=== PATIENT | male | born 1955 | race Caucasian/White ===

== ENCOUNTER 2016-09-30 04:15 | Inpatient (IN) | payer BC ==
[~2016-09-30] VITALS: Ht 172.7 cm; Wt 78.7 kg
[~2016-09-30 04:15] MED LIST: ACET-1311 PO; TADA10TA PO; [UNRECOGNIZED DRUG - REMARK]
[2016-09-30] MEDS ORDERED: SODIUM CHLORIDE 0.9% 1000ML 1,000 ML IV STA ×2 (04:48→08:05)
[2016-09-30] MEDS ORDERED: ONDANSETRON INJ 2 MG/ML 2 ML VIAL IV STA (04:48)
[2016-09-30] MEDS ORDERED: MoRPHine SULFATE 4 MG/ML 1 ML CARP\\VIAL IV STA ×2 (04:48→07:02)
[2016-09-30 05:30] LABS: BASO % 0.1 %; BASO ABS # 0.02 K/uL (0-0.2); COMPLETE YES; EOS % 1.2 %; HEMATOCRIT 51.3 % (42-52); IG% 0.6 %; LYMPH % 3.3 %; LYMPH ABS # 0.54 K/uL (1.2-3.4); MEAN CELL VOLUME 85.9 fL (80-100); MEAN CORPUSCULAR HGB CONC 36.1 g/dl (32-36); MEAN PLATELET VOLUME 9.7 fL (7.4-10.4); MONO % 5.5 %; NEUT % 89.3 %; PLATELET COUNT 252 K/uL (130-400); RED BLOOD COUNT 5.97 M/uL (4.7-6.1); WHITE BLOOD COUNT 16.29 K/uL (4.8-10.8)
[2016-09-30 05:39] LABS: BUN/CREATININE RATIO 19.3 (10-20); CALCIUM 8.6 mg/dl (8.5-10.1); INR 1.1 (0.9-1.1); MAGNESIUM 2.2 mg/dl (1.8-2.4); PARTIAL THROMBOPLASTIN RATIO 0.9; POTASSIUM 3.8 mmol/L (3.5-5.1); PROTHROMBIN TIME (PATIENT) 11.4 SECONDS (9.0-12.0)
[2016-09-30 05:42] LABS: ALB/GLOB RATIO 1.2 (0.9-2); C-REACTIVE PROTEIN 0.52 mg/dl (0-0.29); CKMB/CK RATIO 1.7 (0-3.0)
[2016-09-30] MEDS ORDERED: SODIUM CHLORIDE 0.9% 500ML 500 ML IV STA (06:33)
--- NOTE | 2016-09-30 06:36 | EMERGENCY ROOM VISIT NOTE ---
History First contact with patient: 04:37 Chief Complaint: ABDOMINAL PAIN Stated Complaint: STOMACH PAIN, THROWING UP Nursing Triage Summary: pt states he had onset of epigastric pain after dinner tonight ~9pm. states he ate steak for dinner. hx hiatal hernia. denies cardiac hx. pt alert and oriented x4, breathing WNL. pt states he feels nauseaous and has diarrhea. denies urinary symptoms. History of Present Illness The patient is a 61 year old male who presents to the Emergency Department by private vehicle for evaluation of his upper abdominal pain and diarrhea. The patient reports that he ate dinner at the [facility] and shortly after he developed diarrhea. He reports that he has had upper abdominal pain with associated burning sensation. He feels nauseated and as though he could vomit, but has been unable to do so at this point. He denies any blood in his stool. He reports that his stool was essentially liquid at this point. He rates his current discomfort as a 10/10. Patient denies any headaches, dizziness, lightheadedness, chest pain, palpitations, for pain, shortness of breath, hematemesis, hematochezia, melena, hematuria, or dysuria. He denies any history of coronary artery disease. He reports no family history of coronary artery disease. He does have a hiatal hernia as well as GERD. He has tried no [id number] medications for symptoms at this point. Review of Systems A complete 10-point Review of Systems was discussed with the patient, with pertinent positives and negatives listed in the History of Present Illness. All remaining Review of Systems questions can be considered negative unless otherwise specified. Past Medical/Surgical History Medical Problems: (1) GERD (gastroesophageal reflux disease) Family History No significant family history Social History Smoking Status: Never Smoker Smokeless Tobacco Use: No Alcohol Use: none Drug Use: none Marital Status: Housing Status: lives with family Occupation Status: employed Current/Historical Medications Scheduled Amoxicillin & Pot Clavulanate (Augmentin 875-125 mg), 1 TAB PO BID Fluticasone Propionate (Nasal) (Flonase Allergy Relief), 2 SPRAYS LATRELL DAILY Pantoprazole (Protonix), 40 MG PO QAM Ranitidine (Zantac), 300 MG PO HS Tadalafil (Cialis), 10 MG PO UD Allergies Coded Allergies: No Known Allergies (Unverified , 07/25/16) Physical Exam Vital Signs Date Time Temp Pulse Resp B/P Pulse Ox O2 Delivery O2 Flow Rate FiO2 09/30/16 08:20 97 Room Air 09/30/16 07:22 81 19 112/71 97 Room Air 09/30/16 06:12 90 18 105/74 95 Room Air 09/30/16 05:35 92 22 120/84 96 Room Air 09/30/16 05:35 95 Room Air 09/30/16 05:05 90 09/30/16 04:21 36.4 108 20 117/77 95 Room Air Pain Rating (0-10): 10 Physical Exam VITAL SIGNS - Vital signs and nursing notes were reviewed. GENERAL - 61-year-old male appearing his stated age who is in no acute distress. Communicates well with provider and answers questions appropriately. LUNGS - Chest wall symmetric without accessory muscle use, intercostals retractions, or central cyanosis. Normal vesicular breath sounds CTA B/L. No wheezes, rales, or rhonchi appreciated. CARDIAC - RRR with S1/S2. No murmur, rubs, or gallops appreciated. ABDOMEN - Abdominal contour flat and without pulsations or visible masses. BS normoactive all four quadrants. Moderate tenderness to palpation appreciated in the epigastrium and RUQ. No guarding. No Rebound Tenderness. Negative Rovsing' s. Negative Bernard's. No palpable masses, hepatosplenomegaly, or ascites noted. PSYCH - A&Ox3 and cooperates fully with examiner. Pt is very pleasant and interacts well with examiner. Medical Decision & Procedures ER Provider Diagnostic Interpretation: Chest x-ray was obtained and reviewed by myself. No acute cardiopulmonary processes appreciated per my interpretation. Radiologist's impression unavailable at the time of dictation. Radiological imaging and reports were reviewed by myself. Radiologist's Interpretation per [facility] as follows: US RUQ: The pancreas was not visualized secondary to bowel gas. Liver is normal size with slight increased echogenicity suggesting hepatic steatosis. The gallbladder is unremarkable. The common bile duct is within normal limites measuring up to 6 mm. The right kidney is unremarkable. No stones, masses or hydronephrosis. Radiological imaging and reports were reviewed by myself. Radiologist's Interpretation as follows: ABDOMEN AND PELVIS CT WITH IV CONTRAST CT DOSE: 371.10 mGy.cm HISTORY: epigastric abd pain - diarrhea TECHNIQUE: Multiaxial CT images of the abdomen and pelvis were performed following the use of intravenous contrast. COMPARISON STUDY: Abdominal ultrasound 09/30/2016. FINDINGS: The lung bases are clear. No pneumoperitoneum. No pneumatosis. Fluid-filled distal esophagus. The stomach is mildly distended and completely filled with fluid. Multiple fluid-filled loops of small bowel. Borderline distended loops of small bowel to the deep pelvis measuring up to 3 cm. Question of a transition point within the mid to distal small bowel at the left deep pelvis on image 341. Distal to this area the small bowel is relatively decompressed. Colonic diverticulosis. The appendix appears surgically absent. There is a fluid-filled nondistended colon. There is question of mild thickening versus under distention of the transverse colon and descending colon. The liver, gallbladder, pancreas, spleen, adrenal glands, and kidneys are unremarkable. No retroperitoneal lymphadenopathy. No pelvic free fluid. The bladder is unremarkable. IMPRESSION: 1. Fluid-filled loops of small and large bowel as well as a slightly distended and fluid-filled stomach and distal esophagus. There is question of mild thickening of the transverse colon and descending colon. However, this could be due to underdistention. These findings favor a gastroenteritis with the possibility of a associated mild colitis. 2. There are borderline dilated fluid-filled loops of small bowel with a possible transition point in the left deep pelvis as described above. This may be transient or be related to a low-grade partial small bowel obstruction. Laboratory Results 09/30/16 05:11 Red Blood Count 5.97, Mean Corpuscular Volume 85.9, Mean Corpuscular Hemoglobin 31.0, Mean Corpuscular Hemoglobin Concent 36.1, Mean Platelet Volume 9.7, Neutrophils (%) (Auto) 89.3, Lymphocytes (%) (Auto) 3.3, Monocytes (%) (Auto) 5.5, Eosinophils (%) (Auto) 1.2, Basophils (%) (Auto) 0.1, Neutrophils # (Auto) 14.55, Lymphocytes # (Auto) 0.54, Monocytes # (Auto) 0.90, Eosinophils # (Auto) 0.19, Basophils # (Auto) 0.02 09/30/16 05:11 Test 09/30/16 05:11 White Blood Count 16.29 K/uL (4.8-10.8) Red Blood Count 5.97 M/uL (4.7-6.1) Hemoglobin 18.5 g/dL (14.0-18.0) Hematocrit 51.3 % (42-52) Mean Corpuscular Volume 85.9 fL (80-100) Mean Corpuscular Hemoglobin 31.0 pg (25-34) Mean Corpuscular Hemoglobin Concent 36.1 g/dl (32-36) Platelet Count 252 K/uL (130-400) Mean Platelet Volume 9.7 fL (7.4-10.4) Neutrophils (%) (Auto) 89.3 % Lymphocytes (%) (Auto) 3.3 % Monocytes (%) (Auto) 5.5 % Eosinophils (%) (Auto) 1.2 % Basophils (%) (Auto) 0.1 % Neutrophils # (Auto) 14.55 K/uL (1.4-6.5) Lymphocytes # (Auto) 0.54 K/uL (1.2-3.4) Monocytes # (Auto) 0.90 K/uL (0.11-0.59) Eosinophils # (Auto) 0.19 K/uL (0-0.5) Basophils # (Auto) 0.02 K/uL (0-0.2) RDW Standard Deviation 40.8 fL (36.4-46.3) RDW Coefficient of Variation 12.9 % (11.5-14.5) Immature Granulocyte % (Auto) 0.6 % Immature Granulocyte # (Auto) 0.09 K/uL (0.00-0.02) Erythrocyte Sedimentation Rate 3 mm/hr (0-14) Prothrombin Time 11.4 SECONDS (9.0-12.0) Prothromb Time International Ratio 1.1 (0.9-1.1) Activated Partial Thromboplast Time 24.2 SECONDS (21.0-31.0) Partial Thromboplastin Ratio 0.9 Anion Gap 8.0 mmol/L (3-11) Est Creatinine Clear Calc Drug Dose 73.1 ml/min Estimated GFR () 92.4 Estimated GFR (Non- 79.7 BUN/Creatinine Ratio 19.3 (10-20) Calcium Level 8.6 mg/dl (8.5-10.1) Magnesium Level 2.2 mg/dl (1.8-2.4) Total Bilirubin 1.0 mg/dl (0.2-1) Aspartate Amino Transf (AST/SGOT) 14 U/L (15-37) Alanine Aminotransferase (ALT/SGPT) 27 U/L (12-78) Alkaline Phosphatase 67 U/L (45-117) Total Creatine Kinase 36 U/L (39-308) Creatine Kinase MB 0.6 ng/ml (0.5-3.6) Creatine Kinase MB Ratio 1.7 (0-3.0) Troponin I < 0.015 ng/ml (0-0.045) C-Reactive Protein 0.52 mg/dl (0-0.29) Total Protein 7.3 gm/dl (6.4-8.2) Albumin 4.0 gm/dl (3.4-5.0) Globulin 3.3 gm/dl (2.5-4.0) Albumin/Globulin Ratio 1.2 (0.9-2) Lipase 138 U/L (73-393) Medications Administered Medications (Trade) Dose Ordered Sig/Anita Route Start Time Stop Time Status Last Admin Dose Admin Sodium Chloride (Nss 1000ml) 1,000 ml @ 100 mls/hr Q10H STAT IV 09/30/16 04:48 09/30/16 14:47 09/30/16 05:33 100 MLS/HR Ondansetron HCl (Zofran Inj) 4 mg NOW STAT IV 09/30/16 04:48 09/30/16 04:52 DC 09/30/16 05:33 4 MG Morphine Sulfate 4 mg 4 mg NOW STAT IV 09/30/16 04:48 09/30/16 04:52 DC 09/30/16 05:34 4 MG Sodium Chloride (Nss 500ml) 500 ml @ 999 mls/hr Q31M STAT IV 09/30/16 06:33 09/30/16 07:03 DC 09/30/16 06:33 999 MLS/HR Morphine Sulfate 4 mg 4 mg NOW STAT IV 09/30/16 07:02 09/30/16 07:03 DC 09/30/16 07:23 4 MG Sodium Chloride (Nss 1000ml) 1,000 ml @ 100 mls/hr Q10H STAT IV 09/30/16 08:05 09/30/16 18:04 09/30/16 08:00 100 MLS/HR Procedure Patient was placed on the lunchroom monitor and monitored throughout the entire extent of their stay. In addition, the patient's pulse oximetry was monitored throughout the entire stay. Any abnormalities or aberrancies were addressed appropriately. ECG Indication: abdominal pain Rate (beats per minute): 84 Rhythm: normal sinus Findings: left axis deviation Change: no significant change (from 07/25/2016.) ED Course Patient was seen and evaluated by myself. Labs were drawn, saline lock in place. EKG and chest x-rays were obtained. Patient was hydrated with a 1000 mL normal saline bolus at rate of 100 mL per hour. He received 4 mg Zofran and 4 mg morphine intravenously. Laboratory results demonstrate a moderate leukocytosis of 16,000. There is no anemia. The patient has no significant electrolyte abnormalities. Cardiac enzymes and troponin are negative. On review the patient, he is resting comfortably. Ultrasound and x-ray results above. Patient was reevaluated and is having continued pain. He was treated with an additional [address] was obtained given the patient's white count and ongoing discomfort. CT results above. Laboratory results and imaging studies were reviewed with the patient who acknowledges understanding. The patient was admitted to the [facility] service for further evaluation and management. Patient was admitted in stable condition. Medical Decision Given the patient's presentation and exam findings, I did elect to perform the above-mentioned workup. The patient presents today with epigastric abdominal discomfort. He has no fever. He does have a moderate leukocytosis. Cardiac enzymes and evaluation are otherwise unremarkable. Ultrasound demonstrated no acute findings. Given the patient's ongoing pain in the setting of a 16,000 white count, I did elect to perform a CT scan for further evaluation. Imaging results demonstrate gastroenteritis with possible small bowel obstruction. Given the patient's ongoing symptoms of pain and this finding, I do feel the patient warrants further evaluation with IV fluid hydration and pain medication. The patient will be admitted to the [facility] service for continued management. The patient was admitted in stable condition. In the evaluation and treatment of this patient, the following differential diagnoses were considered: Appendicitis, Diverticulitis, Diverticulosis, Colitis , Ischemic Colitis, Inflammatory Bowel Disease, Irritable Bowel Disease, Testicular Torsion, Kidney Stone, Pyelonephritis, Hydronephrosis, Cholecystitis , Ascending Cholangitis, Choledocholithiasis, GERD. Impression Primary Impression: Small bowel obstruction Additional Impressions: Acute gastroenteritis, Diarrhea Departure Information Dispostion Admitted as an inpatient Condition FAIR Referrals Rohit Vora III, M.D. (PCP) Patient Instructions A Signature Page
[2016-09-30] MEDS ORDERED: OPTIRAY 320 IV PRN (06:45)
[2016-09-30] MEDS ORDERED: AMOX875T PO (06:53)
[2016-09-30] MEDS ORDERED: PANT40TA PO (06:54)
--- NOTE | 2016-09-30 07:31 | DIAGNOSTIC IMAGING REPORT ---
ABDOMEN AND PELVIS CT WITH IV CONTRAST CT DOSE: 371.10 mGy.cm HISTORY: epigastric abd pain - diarrhea TECHNIQUE: Multiaxial CT images of the abdomen and pelvis were performed following the use of intravenous contrast. COMPARISON STUDY: Abdominal ultrasound 09/30/2016. FINDINGS: The lung bases are clear. No pneumoperitoneum. No pneumatosis. Fluid-filled distal esophagus. The stomach is mildly distended and completely filled with fluid. Multiple fluid-filled loops of small bowel. Borderline distended loops of small bowel to the deep pelvis measuring up to 3 cm. Question of a transition point within the mid to distal small bowel at the left deep pelvis on image 341. Distal to this area the small bowel is relatively decompressed. Colonic diverticulosis. The appendix appears surgically absent. There is a fluid-filled nondistended colon. There is question of mild thickening versus under distention of the transverse colon and descending colon. The liver, gallbladder, pancreas, spleen, adrenal glands, and kidneys are unremarkable. No retroperitoneal lymphadenopathy. No pelvic free fluid. The bladder is unremarkable. IMPRESSION: 1. Fluid-filled loops of small and large bowel as well as a slightly distended and fluid-filled stomach and distal esophagus. There is question of mild thickening of the transverse colon and descending colon. However, this could be due to underdistention. These findings favor a gastroenteritis with the possibility of a associated mild colitis. 2. There are borderline dilated fluid-filled loops of small bowel with a possible transition point in the left deep pelvis as described above. This may be transient or be related to a low-grade partial small bowel obstruction. Electronically signed by: Juan Peck M.D. 09/30/2016 7:29 AM Dictated Date/Time: 09/30/2016 7:20 AM
[2016-09-30 08:20] VITALS: O2SAT 97; Ht 172.7 cm; Wt 78.7 kg
--- NOTE | 2016-09-30 08:27 | DIAGNOSTIC IMAGING REPORT ---
CHEST ONE VIEW PORTABLE HISTORY: Epigastric abdominal pain. COMPARISON: Chest 07/25/2016. FINDINGS: The lungs are clear. Cardiac silhouette is normal in size. No pleural effusions. No pneumothorax. Incidental note is made of a right azygos lobe. IMPRESSION: No acute process. Electronically signed by: Juan Peck M.D. 09/30/2016 8:26 AM Dictated Date/Time: 09/30/2016 8:25 AM
[2016-09-30] MEDS ORDERED: HYDROmorphone INJ 0.5 MG/0.5 ML SYR IV STA (09:03)
[2016-09-30] MEDS ORDERED: HYDROmorphone INJ 0.5 MG/0.5 ML SYR ONE (09:12)
[2016-09-30] MEDS ORDERED: ALUMINUM/MAGNESIUM/SIMETH (MAALOX MAX) 30 ML UDC PO PRN (09:15)
[2016-09-30] MEDS ORDERED: ONDANSETRON INJ 2 MG/ML 2 ML VIAL IV PRN (09:15)
[2016-09-30] MEDS ORDERED: HYDROmorphone INJ 0.5 MG/0.5 ML SYR IV PRN (09:15)
--- NOTE | 2016-09-30 09:29 | DIAGNOSTIC IMAGING REPORT ---
ABDOMINAL ULTRASOUND, RIGHT UPPER QUADRANT HISTORY: epigastric abd pain. COMPARISON: None. FINDINGS: Pancreas: Obscured by overlying bowel gas. Liver: Unremarkable. Gallbladder: No gallbladder wall thickening. No gallstones. CBD: 6 mm. Right kidney: No hydronephrosis. IMPRESSION: 1. Normal gallbladder. No gallstones. 2. The pancreas was obscured by overlying bowel gas. Electronically signed by: Juan Peck M.D. 09/30/2016 9:27 AM Dictated Date/Time: 09/30/2016 9:26 AM
[2016-09-30 10:30] VITALS: BP 128/77; PULSE 82; TEMP 36.6; O2SAT 96
--- NOTE | 2016-09-30 10:37 | HISTORY & PHYSICAL EXAMINATION ---
DATE OF ADMISSION: 09/30/2016 CHIEF COMPLAINT: Severe abdominal pain. HISTORY OF PRESENT ILLNESS: This is a 61-year-old male with a post medical history significant for GERD and erectile dysfunction, presents with severe abdominal pain. The patient says since he ate food at last night 9 p.m., he has severe abdominal pain in the epigastric region and several episodes of diarrhea and nausea. He thought it will be subsided, but it did not resolve in the morning, so he came to the ER. He is saying that he got a pain medication in the ER, but was still having significant pain in the epigastric region. Denies any fever or chills. No chest pain, no shortness of breath, no cough, no runny nose, no headaches, no dizziness, and no blurred vision. Otherwise, he was in good health. He was eating and drinking okay and was ambulating fine before this happened. ALLERGIES: No known drug allergies. PAST MEDICAL HISTORY: As mentioned above. PAST SURGICAL HISTORY: Appendectomy and colonoscopy. MEDICATIONS: The patient is on Protonix 40 mg p.o. daily, Zantac 300 mg p.o. daily, Flonase 2 sprays each nostril daily, Augmentin 1 tablet b.i.d., and Cialis as directed. FAMILY HISTORY: Significant for, mother has asthma and emphysema. Father has colon cancer and diabetes. Sister has diabetes. Brother has CABG. SOCIAL HISTORY: Never smoked. Alcohol rare. No drug use. . REVIEW OF SYMPTOMS: As per HPI. PHYSICAL EXAMINATION: GENERAL: The patient is of moderate build, seems to be in pain. VITAL SIGNS: Temperature 36.4, pulse 85, respiratory rate 19, blood pressure 112/71, and oxygen 97% room air. HEENT: No icterus. Pupils are equal, round, and reactive to light. NECK: No JVD, no neck masses, and no carotid bruits. CARDIOVASCULAR: S1 and S2 heard. Regular rate and rhythm. No murmur and no gallop. RESPIRATORY SYSTEM: Clear to auscultation bilaterally. No wheezing and no crackles. ABDOMEN: Soft. Bowel sounds sluggish. Epigastric tenderness present. Some guarding in the epigastric region. No distention seen. CENTRAL NERVOUS SYSTEM: Cranial nerves II-XII grossly intact. Nonfocal. EXTREMITIES: No edema and no erythema. LABORATORY DATA: WBC 16.2, hemoglobin 18.5, hematocrit 37.3, and platelets 252. Sodium 138, potassium 3.8, chloride 105, CO2 of 25, BUN 19, creatinine 1, serum glucose 127, calcium 8.6, and magnesium 2.2. Total bilirubin 1. AST 14, ALT 24, and alkaline phosphatase 67. Total creatine kinase 36. CK-MB 0.6. Troponin I less than 0.015. Lipase 138. PT 11.4, INR 1, and aPTT 24.4. Chest x-ray: No acute process seen. CT scan of the abdomen and pelvis with IV contrast shows fluid filled loops of small and large bowel as well as slightly distended and fluid filled stomach and distal esophagus. Question of mild thickening of transverse colon and descending colon; however, this could be due to under distention. These findings favor gastroenteritis with the possibility of associated mild colitis. There are borderline dilated fluid filled loops of small bowel with a possible transition point in the left deep pelvis as described above. This may be transient or may be related to a low grade partial small bowel obstruction. EKG: Shows normal sinus rhythm with rate of 92. No acute ST changes seen. ASSESSMENT AND PLAN: This is a 61-year-old male who presents with severe epigastric abdominal pain and found to have gastroenteritis and partial small bowel obstruction. 1. Gastroenteritis and mild colitis, most likely viral. The patient will also be checked for flu, though the patient do not have flu symptoms. We will place the patient on n.p.o., IV fluids, IV antiemetics, and IV pain medications p.r.n. We will take a stool sample and monitor on the medical floor. 2. Mild partial small bowel obstruction. We will keep him n.p.o., IV fluids, IV antiemetics, and IV pain medications and follow KUB in a.m. We will also consult surgery. 3. History of gastroesophageal reflux disease. We will place him on IV Protonix. 4. Deep vein thrombosis prophylaxis, SCDs and TEDs. DISPOSITION: Admit to medical floor. Expect to discharge home and follow with his family doctor. Level 1 full code. MTDD
[2016-09-30] MEDS: D5NSS + 20MEQ KCL 1,000 ML IV SCH ×2 (11:14→19:53)
[2016-09-30] MEDS: PANTOprazole INJ 40 MG in SYRINGE 0 ML IV SCH ×2 (11:14→21:23)
[2016-09-30 11:28] LABS: INFLUENZA A PCR Neg for Influ A (NEG); INFLUENZA B PCR Neg for Influ B (NEG)
[2016-09-30] MEDS: ENOXAPARIN 40 MG/0.4 ML SYR SQ SCH (13:15)
[2016-09-30 13:22] LABS: URINE APPEARANCE CLEAR (CLEAR); URINE BILIRUBIN NEG (NEG); URINE COLOR YELLOW; URINE NITRITE NEG (NEG); URINE SPECIFIC GRAVITY 1.044 (1.000-1.030); UROBILINOGEN NEG (NEG); ZZUR CULT IF INDIC CLEAN CATCH NO
[2016-09-30 13:26] LABS: MANUAL MICROSCOPIC REQUIRED? NO; REVIEW REQ? NO
--- NOTE | 2016-09-30 14:28 | Medical Consult ---
Consultation Date of Consultation: Sep 30, 2016. Attending Physician: Jesus Dunn MD History of Present Illness 61 y/o wm in usual state of health began with epigastric pain, nausea ( unable to vomit) and diarrhea. denies fever . Past Medical/Surgical History Medical Problems: (1) Acute gastroenteritis Status: Acute (2) Bronchitis Status: Acute (3) Diarrhea Status: Acute (4) Small bowel obstruction Status: Acute Family History No significant family history Social History Smoking Status: Never Smoker Smokeless Tobacco Use: No Drug Use: none Marital Status: Housing Status: lives with family Occupation Status: employed Allergies Coded Allergies: No Known Allergies (Unverified , 07/25/16) Current Inpatient Medications Current Inpatient Medications Medications (Trade) Dose Ordered Sig/Anita Route Start Time Stop Time Status Last Admin Dose Admin Ioversol (Optiray 320) 125 ml UD PRN IV 09/30/16 06:45 10/04/16 06:44 Enoxaparin Sodium (Lovenox Inj) 40 mg Q24H SQ 09/30/16 12:00 10/30/16 11:59 Acetaminophen (Tylenol Tab) 650 mg Q4H PRN PO 09/30/16 09:15 10/30/16 09:14 Al Hydrox/Mg Hydrox/Simethicone (Maalox Max Susp) 15 ml Q4H PRN PO 09/30/16 09:15 10/30/16 09:14 Ondansetron HCl (Zofran Inj) 4 mg Q6H PRN IV 09/30/16 09:15 10/30/16 09:14 Fluticasone Propionate 2 sprays 2 sprays DAILY LATRELL 10/01/16 09:00 10/31/16 08:59 Potassium Chloride/Dextrose/ Sod Cl (D5nss + 20meq KCl) 1,000 ml @ 125 mls/hr Q8H IV 09/30/16 11:00 10/30/16 09:14 09/30/16 11:14 125 MLS/HR Hydromorphone HCl 0.5 mg 0.5 mg Q3HWA PRN IV 09/30/16 09:15 10/14/16 09:14 Pantoprazole Sodium/Syringe (Protonix Inj/ Syringe) 10 ml @ 5 mls/min DAILY@ IV 09/30/16 11:00 10/30/16 10:59 09/30/16 11:14 5 MLS/MIN Review of Systems Abdomen: + diarrhea, + nausea, + pain Physical Exam Date Time Temp Pulse Resp B/P Pulse Ox O2 Delivery O2 Flow Rate FiO2 09/30/16 10:30 36.6 82 18 128/77 96 Room Air 09/30/16 10:30 Room Air 09/30/16 09:16 87 14 114/82 09/30/16 08:47 85 09/30/16 08:20 97 Room Air 09/30/16 07:22 81 19 112/71 97 Room Air 09/30/16 06:12 90 18 105/74 95 Room Air 09/30/16 05:35 92 22 120/84 96 Room Air 09/30/16 05:35 95 Room Air 09/30/16 05:05 90 09/30/16 04:21 36.4 108 20 117/77 95 Room Air General Appearance: no apparent distress Head: normocephalic, atraumatic Eyes: normal inspection, EOMI ENT: hearing grossly normal Neck: supple, no adenopathy Respiratory/Chest: lungs clear Cardiovascular: regular rate, rhythm Abdomen/GI: soft, + pertinent finding (mild epigastric TTP. 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, alert, oriented x 3 Skin: normal color, warm/dry Laboratory Results Last 24 Hours Test 09/30/16 00:00 09/30/16 05:11 09/30/16 09:30 09/30/16 09:37 Urine Color YELLOW Urine Appearance CLEAR Urine pH 7.0 Urine Specific [place] 1.044 Urine Protein NEG Urine Glucose (UA) NEG Urine Ketones NEG Urine Occult Blood NEG Urine Nitrite NEG Urine Bilirubin NEG Urine Urobilinogen NEG Urine Leukocyte Esterase NEG White Blood Count 16.29 K/uL Red Blood Count 5.97 M/uL Hemoglobin 18.5 g/dL Hematocrit 51.3 % Mean Corpuscular Volume 85.9 fL Mean Corpuscular Hemoglobin 31.0 pg Mean Corpuscular Hemoglobin Concent 36.1 g/dl Platelet Count 252 K/uL Mean Platelet Volume 9.7 fL Neutrophils (%) (Auto) 89.3 % Lymphocytes (%) (Auto) 3.3 % Monocytes (%) (Auto) 5.5 % Eosinophils (%) (Auto) 1.2 % Basophils (%) (Auto) 0.1 % Neutrophils # (Auto) 14.55 K/uL Lymphocytes # (Auto) 0.54 K/uL Monocytes # (Auto) 0.90 K/uL Eosinophils # (Auto) 0.19 K/uL Basophils # (Auto) 0.02 K/uL RDW Standard Deviation 40.8 fL RDW Coefficient of Variation 12.9 % Immature Granulocyte % (Auto) 0.6 % Immature Granulocyte # (Auto) 0.09 K/uL Erythrocyte Sedimentation Rate 3 mm/hr Prothrombin Time 11.4 SECONDS Prothromb Time International Ratio 1.1 Activated Partial Thromboplast Time 24.2 SECONDS Partial Thromboplastin Ratio 0.9 Sodium Level 138 mmol/L Potassium Level 3.8 mmol/L Chloride Level 105 mmol/L Carbon Dioxide Level 25 mmol/L Anion Gap 8.0 mmol/L Blood Urea Nitrogen 19 mg/dl Creatinine 1.00 mg/dl Est Creatinine Clear Calc Drug Dose 73.1 ml/min Estimated GFR () 92.4 Estimated GFR (Non- 79.7 BUN/Creatinine Ratio 19.3 Random Glucose 127 mg/dl Calcium Level 8.6 mg/dl Magnesium Level 2.2 mg/dl Total Bilirubin 1.0 mg/dl Aspartate Amino Transf (AST/SGOT) 14 U/L Alanine Aminotransferase (ALT/SGPT) 27 U/L Alkaline Phosphatase 67 U/L Total Creatine Kinase 36 U/L Creatine Kinase MB 0.6 ng/ml Creatine Kinase MB Ratio 1.7 Troponin I < 0.015 ng/ml C-Reactive Protein 0.52 mg/dl Total Protein 7.3 gm/dl Albumin 4.0 gm/dl Globulin 3.3 gm/dl Albumin/Globulin Ratio 1.2 Lipase 138 U/L Influenza Type A (RT-PCR) Neg for Influ A Influenza Type B (RT-PCR) Neg for Influ B Lactic Acid Level 1.7 mmol/L Assessment & Plan 1. abdominal pain/nausea/diarrhea suspect gastroenteritis vs colitis. doubt SBO IVF, conservative tx pt's father has colon ca and his last scope was over 5 years ago. also told he has a hiatal hernia. would consider GI w/u including egd and colonoscopy in near future will follow along
[2016-09-30 15:26] VITALS: BP 109/69; PULSE 87; TEMP 36.9; O2SAT 95
[2016-09-30] MEDS: RASPBERRY SYRUP 5 ML UDP PO SCH ×2 (18:03→21:11)
[2016-09-30] MEDS: VANCOMYCIN HCL 125 MG/2.5ML SOLN PO SCH ×2 (18:04→21:11)
[2016-09-30] MEDS: ACETAMINOPHEN 325 MG TAB PO PRN (21:47)
[2016-09-30 23:35] VITALS: BP 126/70; PULSE 74; TEMP 37; O2SAT 98
[2016-10-01] MEDS: D5NSS + 20MEQ KCL 1,000 ML IV SCH ×3 (02:59→18:42)
[2016-10-01 07:49] VITALS: BP 119/74; PULSE 70; TEMP 36.7; O2SAT 98
[2016-10-01 07:55] LABS: BASO % 0.1 %; BASO ABS # 0.01 K/uL (0-0.2); COMPLETE YES; EOS % 3.5 %; HEMATOCRIT 44.1 % (42-52); IG% 0.7 %; LYMPH % 13.9 %; LYMPH ABS # 0.95 K/uL (1.2-3.4); MEAN CELL VOLUME 87.8 fL (80-100); MEAN CORPUSCULAR HEMOGLOBIN 30.3 pg (25-34); MEAN CORPUSCULAR HGB CONC 34.5 g/dl (32-36); MEAN PLATELET VOLUME 9.7 fL (7.4-10.4); MONO % 14.2 %; NEUT % 67.6 %; PLATELET COUNT 194 K/uL (130-400); RED BLOOD COUNT 5.02 M/uL (4.7-6.1); WHITE BLOOD COUNT 6.82 K/uL (4.8-10.8)
[2016-10-01 07:58] VITALS: O2SAT 98
[2016-10-01 08:22] LABS: BUN/CREATININE RATIO 13.5 (10-20); CALCIUM 7.7 mg/dl (8.5-10.1); CREATININE 0.86 mg/dl (0.60-1.40); MAGNESIUM 2.1 mg/dl (1.8-2.4); POTASSIUM 3.8 mmol/L (3.5-5.1)
[2016-10-01] MEDS: VANCOMYCIN HCL 125 MG/2.5ML SOLN PO SCH ×4 (09:08→20:49)
[2016-10-01] MEDS: FLUTICASONE PROPIONATE NA SPR 16 GM BTL NAE SCH (09:08)
[2016-10-01] MEDS: RASPBERRY SYRUP 5 ML UDP PO SCH ×4 (09:08→20:49)
[2016-10-01] MEDS: PANTOprazole INJ 40 MG in SYRINGE 0 ML IV SCH ×2 (09:58→20:49)
--- NOTE | 2016-10-01 11:06 | Surgery Progress Note ---
Surgery Progress Note Date of Service Oct 01, 2016. Subjective + feeling well (better today) C. Diff (+) Objective Vital Signs: Date Time Temp Pulse Resp B/P Pulse Ox O2 Delivery O2 Flow Rate FiO2 10/01/16 07:58 98 Room Air 10/01/16 07:49 36.7 70 20 119/74 98 Room Air 10/01/16 07:15 Room Air 09/30/16 23:50 Room Air 09/30/16 23:35 37.0 74 14 126/70 98 Room Air 09/30/16 16:00 Room Air 09/30/16 15:26 36.9 87 18 109/69 95 Room Air Abdomen: non distended, soft Laboratory Results: Results Past 24 Hours Test 10/01/16 07:08 Range/Units White Blood Count 6.82 4.8-10.8 K/uL Red Blood Count 5.02 4.7-6.1 M/uL Hemoglobin 15.2 14.0-18.0 g/dL Hematocrit 44.1 42-52 % Mean Corpuscular Volume 87.8 80-100 fL Mean Corpuscular Hemoglobin 30.3 25-34 pg Mean Corpuscular Hemoglobin Concent 34.5 32-36 g/dl Platelet Count 194 130-400 K/uL Mean Platelet Volume 9.7 7.4-10.4 fL Neutrophils (%) (Auto) 67.6 % Lymphocytes (%) (Auto) 13.9 % Monocytes (%) (Auto) 14.2 % Eosinophils (%) (Auto) 3.5 % Basophils (%) (Auto) 0.1 % Neutrophils # (Auto) 4.60 1.4-6.5 K/uL Lymphocytes # (Auto) 0.95 1.2-3.4 K/uL Monocytes # (Auto) 0.97 0.11-0.59 K/uL Eosinophils # (Auto) 0.24 0-0.5 K/uL Basophils # (Auto) 0.01 0-0.2 K/uL RDW Standard Deviation 42.6 36.4-46.3 fL RDW Coefficient of Variation 13.3 11.5-14.5 % Immature Granulocyte % (Auto) 0.7 % Immature Granulocyte # (Auto) 0.05 0.00-0.02 K/uL Sodium Level 141 136-145 mmol/L Potassium Level 3.8 3.5-5.1 mmol/L Chloride Level 108 98-107 mmol/L Carbon Dioxide Level 26 21-32 mmol/L Anion Gap 7.0 3-11 mmol/L Blood Urea Nitrogen 12 7-18 mg/dl Creatinine 0.86 0.60-1.40 mg/dl Est Creatinine Clear Calc Drug Dose 85.0 ml/min Estimated GFR () 107.0 Estimated GFR (Non- 92.3 BUN/Creatinine Ratio 13.5 10-20 Random Glucose 87 70-99 mg/dl Calcium Level 7.7 8.5-10.1 mg/dl Magnesium Level 2.1 1.8-2.4 mg/dl Assessment & Plan C. diff colitis improved now on vanco would expect continued improvement, will sign off for now seen with Dr. Stringer
--- NOTE | 2016-10-01 11:38 | DIAGNOSTIC IMAGING REPORT ---
KUB CLINICAL HISTORY: Partial small bowel obstruction. COMPARISON STUDY: CT of the abdomen and pelvis September 30, 2016. FINDINGS: There are a few loops of mildly dilated small bowel within the left upper quadrant. There is scattered colonic gas. Small bowel dilatation has slightly increased since prior exam. IMPRESSION: Mild small bowel dilatation, slightly increased since prior exam. The findings could reflect an ileus or partial small bowel obstruction. Electronically signed by: Enrique Gil M.D. 10/01/2016 11:36 AM Dictated Date/Time: 10/01/2016 11:34 AM
[2016-10-01] MEDS: ENOXAPARIN 40 MG/0.4 ML SYR SQ SCH (11:52)
[2016-10-01 16:01] VITALS: BP 130/78; PULSE 75; TEMP 37; O2SAT 97
[2016-10-01] MEDS: ACETAMINOPHEN 325 MG TAB PO PRN (16:09)
--- NOTE | 2016-10-01 19:17 | Progress Note ---
Internal Med Progress Note Date of Service: Oct 01, 2016. Provider Documentation: SUBJECTIVE: abdominal pain resolved having diarrhea nausea improved afebrile no sob OBJECTIVE: Vital Signs-as noted below Exam: General-alert and oriented x3 ENT-normal hearing Neck-no neck masses Lungs-cta b/l no wheezing no crackles Heart-s 1 and s2 heard no murmurs Abdomen-soft bowel sounds present non tender no distension Extremities-no edema no erythema Neuro-alert and oriented moves extremities ASSESSMENT & PLAN: : This is a 61-year-old male who presents with severe epigastric abdominal pain and found to have gastroenteritis and partial small bowel obstruction. 1. c diff colitis recently had abx for cough started on hannah vancomycin improving started on clears gentle fluids. 2. Mild partial small bowel obstruction. seen by surgery and appreciate inputs pain resolved. has bowel sounds and having diarrhea started on clears will monitor 3. History of gastroesophageal reflux disease. on IV Protonix. 4. Deep vein thrombosis prophylaxis, SCDs and TEDs. DISPOSITION:Monitor in medical floor. Expect to discharge home and follow with his family doctor. Level 1 full code. Vital Signs: Date Time Temp Pulse Resp B/P Pulse Ox O2 Delivery O2 Flow Rate FiO2 10/01/16 16:15 Room Air 10/01/16 16:01 37.0 75 18 130/78 97 Room Air 10/01/16 07:58 98 Room Air 10/01/16 07:49 36.7 70 20 119/74 98 Room Air 10/01/16 07:15 Room Air 09/30/16 23:50 Room Air 09/30/16 23:35 37.0 74 14 126/70 98 Room Air Lab Results: Results Past 24 Hours Test 10/01/16 07:08 Range/Units White Blood Count 6.82 4.8-10.8 K/uL Red Blood Count 5.02 4.7-6.1 M/uL Hemoglobin 15.2 14.0-18.0 g/dL Hematocrit 44.1 42-52 % Mean Corpuscular Volume 87.8 80-100 fL Mean Corpuscular Hemoglobin 30.3 25-34 pg Mean Corpuscular Hemoglobin Concent 34.5 32-36 g/dl Platelet Count 194 130-400 K/uL Mean Platelet Volume 9.7 7.4-10.4 fL Neutrophils (%) (Auto) 67.6 % Lymphocytes (%) (Auto) 13.9 % Monocytes (%) (Auto) 14.2 % Eosinophils (%) (Auto) 3.5 % Basophils (%) (Auto) 0.1 % Neutrophils # (Auto) 4.60 1.4-6.5 K/uL Lymphocytes # (Auto) 0.95 1.2-3.4 K/uL Monocytes # (Auto) 0.97 0.11-0.59 K/uL Eosinophils # (Auto) 0.24 0-0.5 K/uL Basophils # (Auto) 0.01 0-0.2 K/uL RDW Standard Deviation 42.6 36.4-46.3 fL RDW Coefficient of Variation 13.3 11.5-14.5 % Immature Granulocyte % (Auto) 0.7 % Immature Granulocyte # (Auto) 0.05 0.00-0.02 K/uL Sodium Level 141 136-145 mmol/L Potassium Level 3.8 3.5-5.1 mmol/L Chloride Level 108 98-107 mmol/L Carbon Dioxide Level 26 21-32 mmol/L Anion Gap 7.0 3-11 mmol/L Blood Urea Nitrogen 12 7-18 mg/dl Creatinine 0.86 0.60-1.40 mg/dl Est Creatinine Clear Calc Drug Dose 85.0 ml/min Estimated GFR () 107.0 Estimated GFR (Non- 92.3 BUN/Creatinine Ratio 13.5 10-20 Random Glucose 87 70-99 mg/dl Calcium Level 7.7 8.5-10.1 mg/dl Magnesium Level 2.1 1.8-2.4 mg/dl
[2016-10-01 23:39] VITALS: BP 132/78; PULSE 57; TEMP 37; O2SAT 97
[2016-10-02] MEDS: D5NSS + 20MEQ KCL 1,000 ML IV SCH ×2 (03:10→09:10)
[2016-10-02 03:12] VITALS: PULSE 69
[2016-10-02 07:18] LABS: BASO % 0.2 %; BASO ABS # 0.01 K/uL (0-0.2); COMPLETE YES; EOS % 4.3 %; HEMATOCRIT 45.2 % (42-52); IG% 0.5 %; LYMPH ABS # 1.29 K/uL (1.2-3.4); MEAN CELL VOLUME 88.1 fL (80-100); MEAN CORPUSCULAR HEMOGLOBIN 30.2 pg (25-34); MEAN CORPUSCULAR HGB CONC 34.3 g/dl (32-36); MEAN PLATELET VOLUME 9.6 fL (7.4-10.4); PLATELET COUNT 188 K/uL (130-400); RED BLOOD COUNT 5.13 M/uL (4.7-6.1); WHITE BLOOD COUNT 5.61 K/uL (4.8-10.8)
[2016-10-02 07:54] LABS: BUN/CREATININE RATIO 7.9 (10-20); CALCIUM 8.5 mg/dl (8.5-10.1); CREATININE 0.82 mg/dl (0.60-1.40); MAGNESIUM 2.2 mg/dl (1.8-2.4); POTASSIUM 4.2 mmol/L (3.5-5.1)
[2016-10-02 08:07] VITALS: BP 122/77; PULSE 65; TEMP 36.7; O2SAT 96
[2016-10-02] MEDS: FLUTICASONE PROPIONATE NA SPR 16 GM BTL NAE SCH (09:09)
[2016-10-02] MEDS: RASPBERRY SYRUP 5 ML UDP PO SCH ×4 (09:09→21:26)
[2016-10-02] MEDS: PANTOprazole INJ 40 MG in SYRINGE 0 ML IV SCH (09:09)
[2016-10-02] MEDS: VANCOMYCIN HCL 125 MG/2.5ML SOLN PO SCH ×4 (09:09→21:26)
[2016-10-02] MEDS: ENOXAPARIN 40 MG/0.4 ML SYR SQ SCH (13:25)
[2016-10-02 15:20] VITALS: BP 125/74; PULSE 57; TEMP 36.9; O2SAT 97
[2016-10-02 16:30] VITALS: O2SAT 97
--- NOTE | 2016-10-02 17:08 | Progress Note ---
Internal Med Progress Note Date of Service: Oct 02, 2016. Provider Documentation: SUBJECTIVE: sitting up on chair no nausea/vomiting of abdominal pain tolerating clears willing to try solid food having bowel movement OBJECTIVE: Vital Signs-as noted below Exam: General-no sign of distress, pleasant ENT-normal hearing, moist oral mucosa , normal oropharynx Neck-no neck masses, trachea midline , no thyromegaly Lungs-cta b/l no wheezing no crackles Heart-s 1 and s2 heard no murmurs. no lower ext edema, no JVD Abdomen-soft bowel sounds present non tender no distension Extremities-no rash or deformity Neuro-alert and oriented,no focal neurological deficit moves extremities Lab data as noted below. ASSESSMENT & PLAN: C diff colitis recently was on abx for cough stool C.diff + ve started on po vancomycin will need total 10 days of course advance diet to low residue Mild partial small bowel obstruction. was evident in CT abdomen -possible due to above resolved , no nausea, abdominal pain , having multiple bowel movement evaluated by Surgery no intervention indicated advance diet Level 1 full code. DVT PROPHYLAXIS scd and teds ambulate DISPOSITION Discharge home tomorrow Vital Signs: Date Time Temp Pulse Resp B/P Pulse Ox O2 Delivery O2 Flow Rate FiO2 10/02/16 16:30 97 Room Air 10/02/16 15:20 36.9 57 16 125/74 97 Room Air 10/02/16 08:09 Room Air 10/02/16 08:07 36.7 65 20 122/77 96 Room Air 10/02/16 03:12 69 10/02/16 00:00 Room Air 10/01/16 23:39 37.0 57 16 132/78 97 Room Air Lab Results: Results Past 24 Hours Test 10/02/16 07:00 Range/Units White Blood Count 5.61 4.8-10.8 K/uL Red Blood Count 5.13 4.7-6.1 M/uL Hemoglobin 15.5 14.0-18.0 g/dL Hematocrit 45.2 42-52 % Mean Corpuscular Volume 88.1 80-100 fL Mean Corpuscular Hemoglobin 30.2 25-34 pg Mean Corpuscular Hemoglobin Concent 34.3 32-36 g/dl Platelet Count 188 130-400 K/uL Mean Platelet Volume 9.6 7.4-10.4 fL Neutrophils (%) (Auto) 51.0 % Lymphocytes (%) (Auto) 23.0 % Monocytes (%) (Auto) 21.0 % Eosinophils (%) (Auto) 4.3 % Basophils (%) (Auto) 0.2 % Neutrophils # (Auto) 2.86 1.4-6.5 K/uL Lymphocytes # (Auto) 1.29 1.2-3.4 K/uL Monocytes # (Auto) 1.18 0.11-0.59 K/uL Eosinophils # (Auto) 0.24 0-0.5 K/uL Basophils # (Auto) 0.01 0-0.2 K/uL RDW Standard Deviation 42.5 36.4-46.3 fL RDW Coefficient of Variation 13.1 11.5-14.5 % Immature Granulocyte % (Auto) 0.5 % Immature Granulocyte # (Auto) 0.03 0.00-0.02 K/uL Sodium Level 142 136-145 mmol/L Potassium Level 4.2 3.5-5.1 mmol/L Chloride Level 107 98-107 mmol/L Carbon Dioxide Level 27 21-32 mmol/L Anion Gap 8.0 3-11 mmol/L Blood Urea Nitrogen 7 7-18 mg/dl Creatinine 0.82 0.60-1.40 mg/dl Est Creatinine Clear Calc Drug Dose 89.2 ml/min Estimated GFR () 109.1 Estimated GFR (Non- 94.1 BUN/Creatinine Ratio 7.9 10-20 Random Glucose 93 70-99 mg/dl Calcium Level 8.5 8.5-10.1 mg/dl Magnesium Level 2.2 1.8-2.4 mg/dl
[2016-10-02 23:12] VITALS: BP 122/76; PULSE 71; TEMP 37.1; O2SAT 94
[2016-10-03 08:00] VITALS: BP 125/86; PULSE 77; TEMP 36.6; O2SAT 95
[2016-10-03] MEDS: FLUTICASONE PROPIONATE NA SPR 16 GM BTL NAE SCH (08:49)
[2016-10-03] MEDS: RASPBERRY SYRUP 5 ML UDP PO SCH ×2 (08:50→12:41)
[2016-10-03] MEDS: VANCOMYCIN HCL 125 MG/2.5ML SOLN PO SCH ×2 (08:52→12:41)
--- NOTE | 2016-10-03 09:02 | DIAGNOSTIC IMAGING REPORT ---
KUB CLINICAL HISTORY: ABDOMINAL PAIN COMPARISON STUDY: 10/01/2016 FINDINGS: There is no pathologic bowel dilatation. Left mid abdominal small bowel loops are at the upper limits of normal in diameter. There are no transition zones indicate bowel obstruction. There are no calcification suspicious for renal calculi. IMPRESSION: No conventional radiographic evidence of bowel obstruction. Electronically signed by: Aly Vickers M.D. 10/03/2016 9:01 AM Dictated Date/Time: 10/03/2016 9:00 AM
[2016-10-03] MEDS ORDERED: VNCS125 PO (11:36)
--- NOTE | 2016-10-03 11:37 | Discharge Instructions ---
Discharge Instructions Admission Reason for Admission: Acute Gastroenteritis,Small Bowel Obstruction Discharge Discharge Diagnosis / Problem: C DIFF COLITIS Discharge Goals Goal(s): Decrease discomfort, Diagnostic testing Activity Recommendations Activity Limitations: resume your previous activity . Instructions / Follow-Up Instructions / Follow-Up HOSPITAL FOLLOW UP WITH DR Rohit Vora III, MD ON 10/08/2016 @11:10 AM [facility] TAKE PROBIOTICS/LACTINEX 1 TAB THREE TIMES DAILY WITH MEALS FOR 10 DAYS WASH YOUR HANDS WITH SOAP AND WATER EACH TIME AFTER USING BATHROOM BEFORE EACH MEALS PLEASE KEEP YOUR PERSONAL ITEMS INCLUDING CUPS , GLASS , PLATES SEPARATE PLEASE NOTIFY YOUR FAMILY PHYSICIAN IF DIARRHEA NOT IMPROVING IN NEXT 1-2 DAYS OR DEVELOPING ABDOMINAL PAIN , FEVER Current Hospital Diet Patient's current hospital diet: Low Fiber Diet Discharge Diet Recommended Diet: Low Fiber Diet (FOR 1 WEEK ; THEN RESUME REGULAR DIET ) Pending Studies Studies pending at discharge: no Medical Emergencies . Who to Call and When: Medical Emergencies: If at any time you feel your situation is an emergency, please call 911 immediately. . Non-Emergent Contact Non-Emergency issues call your: Primary Care Provider . . "Provider Documentation" section prepared by Naomi Short. VTE Core Measure Inpt VTE Proph given/why not?: Ko Segura, SCD's
[2016-10-03 12:23] VITALS: BP 125/86; PULSE 77; TEMP 36.6; O2SAT 95
[2016-10-03] MEDS ORDERED: LCTX PO (14:36)
--- NOTE | 2016-10-03 14:39 | Discharge Summary ---
Discharge Summary Admission Date: Sep 30, 2016 at 09:07 Discharge Date: Oct 03, 2016 Discharge Disposition: Home Principal Diagnosis: C DIFF COLITIS Consultations: SURGERY Medication Reconciliation New Medications: Lactobacillus Acidophilus (Lactinex) Tab 1 TAB PO TIDM for 10 Days, #30 TAB Vancomycin HCl (Vancomycin HCl) 125 Mg/2.5 Ml Susp 125 MG PO QID for 7 Days, #70 ML Continued Medications: Fluticasone Propionate (Nasal) (Flonase Allergy Relief) 50 Mcg/Act Spr 2 SPRAYS LATRELL DAILY Ranitidine (Zantac) 300 Mg Tab 300 MG PO HS, TAB Tadalafil (Cialis) 10 Mg Tab 10 MG PO UD, TAB Discontinued Medications: Amoxicillin & Pot Clavulanate (Augmentin 875-125 mg) 1 Tab Tab 1 TAB PO BID for 10 Days, #20 TAB BEGIN 09/22/16, END 10/02/16 Pantoprazole (Protonix) 40 Mg Tab 40 MG PO QAM TAKE THIS MED 1 HOUR BEFORE BREAKFAST. Referrals At Discharge Follow up Referrals: Physician Referral - 10/08/16 with Rohit Vora III, M.D. Admission Information HPI (per Admitting provider): DATE OF ADMISSION: 09/30/2016 CHIEF COMPLAINT: Severe abdominal pain. HISTORY OF PRESENT ILLNESS: This is a 61-year-old male with a post medical history significant for GERD and erectile dysfunction, presents with severe abdominal pain. The patient says since he ate food at last night 9 p.m., he has severe abdominal pain in the epigastric region and several episodes of diarrhea and nausea. He thought it will be subsided, but it did not resolve in the morning, so he came to the ER. He is saying that he got a pain medication in the ER, but was still having significant pain in the epigastric region. Denies any fever or chills. No chest pain, no shortness of breath, no cough, no runny nose, no headaches, no dizziness, and no blurred vision. Otherwise, he was in good health. He was eating and drinking okay and was ambulating fine before this happened. ALLERGIES: No known drug allergies. PAST MEDICAL HISTORY: As mentioned above. PAST SURGICAL HISTORY: Appendectomy and colonoscopy. MEDICATIONS: The patient is on Protonix 40 mg p.o. daily, Zantac 300 mg p.o. daily, Flonase 2 sprays each nostril daily, Augmentin 1 tablet b.i.d., and Cialis as directed. FAMILY HISTORY: Significant for, mother has asthma and emphysema. Father has colon cancer and diabetes. Sister has diabetes. Brother has CABG. SOCIAL HISTORY: Never smoked. Alcohol rare. No drug use. . Physical Exam (per Admitting): REVIEW OF SYMPTOMS: As per HPI. PHYSICAL EXAMINATION: GENERAL: The patient is of moderate build, seems to be in pain. VITAL SIGNS: Temperature 36.4, pulse 85, respiratory rate 19, blood pressure 112/71, and oxygen 97% room air. HEENT: No icterus. Pupils are equal, round, and reactive to light. NECK: No JVD, no neck masses, and no carotid bruits. CARDIOVASCULAR: S1 and S2 heard. Regular rate and rhythm. No murmur and no gallop. RESPIRATORY SYSTEM: Clear to auscultation bilaterally. No wheezing and no crackles. ABDOMEN: Soft. Bowel sounds sluggish. Epigastric tenderness present. Some guarding in the epigastric region. No distention seen. CENTRAL NERVOUS SYSTEM: Cranial nerves II-XII grossly intact. Nonfocal. EXTREMITIES: No edema and no erythema. Hospital Course C diff colitis recently was on abx for cough stool C.diff + ve started on po vancomycin clinically improved total 10 days of course pt is instructed to hand washing to prevent disease spread Lactinex TID with meals for 10 days advanced diet to low residue -tolerating well stable to be discharged home Hospital follow up scheduled with Dr Vora on 10/08/16 Mild partial small bowel obstruction. was evident in CT abdomen -possible due to above resolved , no nausea, abdominal pain , having multiple bowel movement evaluated by Surgery no intervention indicated advanced diet -tolerating well KUB today : IMPRESSION: No conventional radiographic evidence of bowel obstruction. Level 1 full code. DVT PROPHYLAXIS scd and teds ambulate DISPOSITION Discharge home today Total time spent on discharge = 40 mi ns This includes examination of the patient, discharge planning, medication reconciliation, and communication with other providers. Discharge Instructions DI: Medical v4 Discharge Instructions Admission Reason for Admission: Acute Gastroenteritis,Small Bowel Obstruction Discharge Discharge Diagnosis / Problem: C DIFF COLITIS Discharge Goals Goal(s): Decrease discomfort, Diagnostic testing Activity Recommendations Activity Limitations: resume your previous activity . Instructions / Follow-Up Instructions / Follow-Up HOSPITAL FOLLOW UP WITH DR Rohit Vora III, MD ON 10/08/2016 @11:10 AM [facility] TAKE PROBIOTICS/LACTINEX 1 TAB THREE TIMES DAILY WITH MEALS FOR 10 DAYS WASH YOUR HANDS WITH SOAP AND WATER EACH TIME AFTER USING BATHROOM BEFORE EACH MEALS PLEASE KEEP YOUR PERSONAL ITEMS INCLUDING CUPS , GLASS , PLATES SEPARATE PLEASE NOTIFY YOUR FAMILY PHYSICIAN IF DIARRHEA NOT IMPROVING IN NEXT 1-2 DAYS OR DEVELOPING ABDOMINAL PAIN , FEVER Current Hospital Diet Patient's current hospital diet: Low Fiber Diet Discharge Diet Recommended Diet: Low Fiber Diet (FOR 1 WEEK ; THEN RESUME REGULAR DIET ) Pending Studies Studies pending at discharge: no Medical Emergencies . Who to Call and When: Medical Emergencies: If at any time you feel your situation is an emergency, please call 911 immediately. . Non-Emergent Contact Non-Emergency issues call your: Primary Care Provider . . "Provider Documentation" section prepared by Naomi Short. VTE Core Measure Inpt VTE Proph given/why not?: Ko Segura, SCD's Additional Copies To Rohit Vora III, M.D.
--- NOTE | 2016-10-03 14:39 | Progress Note ---
Internal Med Progress Note Date of Service: Oct 03, 2016. Provider Documentation: SUBJECTIVE: tolerating diet well , no nausea or abdominal pain diarrhea has resolved ready to be discharged home OBJECTIVE: Vital Signs-as noted below Exam: General-no sign of distress, pleasant ENT-normal hearing, moist oral mucosa , normal oropharynx Neck-no neck masses, trachea midline , no thyromegaly Lungs-cta b/l no wheezing no crackles Heart-s 1 and s2 heard no murmurs. no lower ext edema, no JVD Abdomen-soft bowel sounds present non tender no distension Extremities-no rash or deformity Neuro-alert and oriented,no focal neurological deficit moves extremities Lab data as noted below. ASSESSMENT & PLAN: C diff colitis recently was on abx for cough stool C.diff + ve started on po vancomycin clinically improved total 10 days of course pt is instructed to hand washing to prevent disease spread Lactinex TID with meals for 10 days advanced diet to low residue -tolerating well stable to be discharged home Hospital follow up scheduled with Dr Vora on 10/08/16 Mild partial small bowel obstruction. was evident in CT abdomen -possible due to above resolved , no nausea, abdominal pain , having multiple bowel movement evaluated by Surgery no intervention indicated advanced diet -tolerating well KUB today : IMPRESSION: No conventional radiographic evidence of bowel obstruction. Level 1 full code. DVT PROPHYLAXIS scd and teds ambulate DISPOSITION Discharge home today Vital Signs: Date Time Temp Pulse Resp B/P Pulse Ox O2 Delivery O2 Flow Rate FiO2 10/03/16 12:23 36.6 77 18 95 Room Air 10/03/16 08:00 36.6 77 18 125/86 95 Room Air 10/03/16 07:58 Room Air 10/02/16 23:45 Room Air 10/02/16 23:12 37.1 71 17 122/76 94 Room Air 10/02/16 16:30 97 Room Air 10/02/16 15:20 36.9 57 16 125/74 97 Room Air
[2016-12-26] MEDS ORDERED: FLUT0.15 NAE (06:56)
[2016-12-26] MEDS ORDERED: RANI300T2 PO (06:57)
== END 2016-10-03 16:00 | disposition home or self-care (01) | DRG 373 ==
LOC: ENRESERVTM → ENRESERVDT → C.EDB 04:16 → C.MSW 09:07 → UNDOADMIN 09:07
PROVIDERS: ADMIT Internal Medicine; ATTEND Hospitalist
DX: A04.7 Enterocolitis due to Clostridium difficile (principal); K21.9 Gastro-esophageal reflux disease without esophagitis; N52.9 Male erectile dysfunction, unspecified; Z79.899 Other long term (current) drug therapy

== ENCOUNTER 2016-12-26 19:23 | Emergency (ER) | payer BC ==
[~2016-12-26] VITALS: Ht 172.7 cm; Wt 82.9 kg
[~2016-12-26 19:23] MED LIST changes: -ACET-1311 PO; +FLUT0.15 NAE; +RANI300T2 PO; +VNCS125 PO; -[UNRECOGNIZED DRUG - REMARK]
[2016-12-26 19:46] VITALS: TEMP 36.7; Ht 172.7 cm; Wt 82.9 kg
[2016-12-26] MEDS ORDERED: SODIUM CHLORIDE 0.9% 1000ML 1,000 ML IV STA (20:41)
[2016-12-26 21:24] LABS: BASO % 0.3 %; BASO ABS # 0.02 K/uL (0-0.2); COMPLETE YES; EOS % 3.8 %; HEMATOCRIT 45.6 % (42-52); IG% 0.3 %; LYMPH % 26.5 %; LYMPH ABS # 1.82 K/uL (1.2-3.4); MEAN CELL VOLUME 85.4 fL (80-100); MEAN CORPUSCULAR HEMOGLOBIN 30.7 pg (25-34); MEAN PLATELET VOLUME 9.7 fL (7.4-10.4); MONO % 13.4 %; NEUT % 55.7 %; PLATELET COUNT 210 K/uL (130-400); RED BLOOD COUNT 5.34 M/uL (4.7-6.1); WHITE BLOOD COUNT 6.86 K/uL (4.8-10.8)
--- NOTE | 2016-12-26 21:33 | DIAGNOSTIC IMAGING REPORT ---
CT OF THE ABDOMEN AND PELVIS WITHOUT CONTRAST CLINICAL HISTORY: Abdominal pain, nausea and vomiting. COMPARISON STUDY: CT of the abdomen and pelvis September 30, 2016. TECHNIQUE: Axial images of the abdomen and pelvis were obtained without IV contrast. Images were reviewed in the axial, sagittal, and coronal planes. FINDINGS: Lung bases are clear. There are no renal, ureteral or bladder calculi. There is no hydronephrosis. Evaluation of the abdomen and pelvis is suboptimal on this unenhanced exam. Unenhanced images of the liver, spleen, adrenal glands and pancreas are normal. There is no biliary or pancreatic ductal dilatation. There is no evidence for a bowel obstruction. The appendix is not visualized. There is no lymphadenopathy or ascites. No suspicious skeletal lesions are identified. IMPRESSION: 1. No urinary calculi or hydronephrosis. 2. No acute process within the abdomen or pelvis on unenhanced exam. 3. Colonic diverticulosis without evidence of acute diverticulitis. Electronically signed by: Enrique Gil M.D. 12/26/2016 9:32 PM Dictated Date/Time: 12/26/2016 9:26 PM
[2016-12-26 21:40] LABS: ALT/SGPT 22 U/L (12-78); BLOOD UREA NITROGEN 15 mg/dl (7-18); BUN/CREATININE RATIO 12.8 (10-20); CALCIUM 8.7 mg/dl (8.5-10.1); CARBON DIOXIDE 27 mmol/L (21-32); CHLORIDE 105 mmol/L (98-107); GLUCOSE 104 mg/dl (70-99); POTASSIUM 3.4 mmol/L (3.5-5.1); SODIUM 141 mmol/L (136-145)
[2016-12-26 21:43] LABS: ALKALINE PHOSPHATASE 58 U/L (45-117); AST/SGOT 17 U/L (15-37)
[2016-12-26 22:18] LABS: URINE APPEARANCE CLEAR (CLEAR); URINE BILIRUBIN NEG (NEG); URINE COLOR YELLOW; URINE NITRITE NEG (NEG); URINE PH 7.5 (4.5-7.5); URINE SPECIFIC GRAVITY 1.006 (1.000-1.030); UROBILINOGEN NEG (NEG); ZZUR CULT IF INDIC CLEAN CATCH NO
[2016-12-26 22:24] LABS: MANUAL MICROSCOPIC REQUIRED? NO; REVIEW REQ? NO
[2016-12-26] MEDS ORDERED: OPTIRAY 320 IV PRN (23:30)
[2016-12-27] MEDS ORDERED: ACETAMINOPHEN 500 MG TAB PO STA (00:37)
--- NOTE | 2016-12-27 01:16 | EMERGENCY ROOM VISIT NOTE ---
History Report prepared by Crispin: Gayla Cobos Under the Supervision of: Dr. Rohit Linares M.D. First contact with patient: 20:41 Chief Complaint: ABDOMINAL PAIN Stated Complaint: ABDOMINAL PAIN- PHYSICIAN REFERRED History of Present Illness The patient is a 61 year old male who presents to the Emergency Room with complaints of persistent generalized abdominal pain that began 2 days ago. He had some nausea and dry heaves when his symptoms began. This morning, the patient started to have loose stool. The patient had C. diff this past September. His current symptoms feel similar to when he was diagnosed with C. diff. He has never had any abdominal surgeries. The patient was seen by Dr. Vora this evening and was referred to the ED for further testing. Pt denies LOC, headache , fevers, chills, diaphoresis, visual changes, neck pain, chest pain, breathing difficulties, vomiting, back pain, melena, hematochezia, urinary symptoms, numbness, weakness, lymphadenopathy, rash, or other complaints. Source of History: patient Onset: 2 days ago Position: abdomen Timing: other (persistent) Associated Symptoms: + nausea Note: Other symptoms: loose stool, dry heaves Review of Systems See HPI for pertinent positives and negatives. A total of ten systems were reviewed and were otherwise negative. Past Medical & Surgical Medical Problems: (1) C. difficile colitis (2) GERD (gastroesophageal reflux disease) Surgical Problems: (1) History of appendectomy Family History No significant family history Social History Smoking Status: Never Smoker Alcohol Use: none Drug Use: none Marital Status: Housing Status: lives with family Occupation Status: employed Current/Historical Medications Scheduled Fluticasone Propionate (Nasal) (Flonase Allergy Relief), 2 SPRAYS LATRELL DAILY Ranitidine (Zantac), 300 MG PO HS Allergies Coded Allergies: No Known Allergies (Unverified , 07/25/16) Physical Exam Vital Signs Date Time Temp Pulse Resp B/P Pulse Ox O2 Delivery O2 Flow Rate FiO2 12/26/16 22:54 66 19 130/86 96 Room Air 12/26/16 20:33 71 12/26/16 19:46 36.7 81 19 141/91 93 Room Air Physical Exam GENERAL: Awake, alert, uncomfortable-appearing, in no distress HENT: Normocephalic, atraumatic. Oropharynx unremarkable. EYES: Normal conjunctiva. Sclera non-icteric. NECK: Supple. No nuchal rigidity. FROM. No JVD. RESPIRATORY: Clear to auscultation. CARDIAC: Regular rate, normal rhythm. Extremities warm and well perfused. Pulses equal. ABDOMEN: Soft, non-distended. Generalized tenderness to palpation. No rebound or guarding. No masses. RECTAL: Deferred. MUSCULOSKELETAL: Chest examination reveals no tenderness. The back is symmetrical on inspection without obvious abnormality. There is no CVA tenderness to palpation. No joint edema. LOWER EXTREMITIES: Calves are equal size bilaterally and non-tender. No edema. No discoloration. NEURO: Normal sensorium. No sensory or motor deficits noted. SKIN: No rash or jaundice noted. Medical Decision & Procedures ER Provider Diagnostic Interpretation: X ray results as stated below per my interpretation and radiologist interpretation. Other radiology results as stated below per my review and radiologist interpretation CT OF THE ABDOMEN AND PELVIS WITHOUT CONTRAST CLINICAL HISTORY: Abdominal pain, nausea and vomiting. COMPARISON STUDY: CT of the abdomen and pelvis September 30, 2016. TECHNIQUE: Axial images of the abdomen and pelvis were obtained without IV contrast. Images were reviewed in the axial, sagittal, and coronal planes. FINDINGS: Lung bases are clear. There are no renal, ureteral or bladder calculi. There is no hydronephrosis. Evaluation of the abdomen and pelvis is suboptimal on this unenhanced exam. Unenhanced images of the liver, spleen, adrenal glands and pancreas are normal. There is no biliary or pancreatic ductal dilatation. There is no evidence for a bowel obstruction. The appendix is not visualized. There is no lymphadenopathy or ascites. No suspicious skeletal lesions are identified. IMPRESSION: 1. No urinary calculi or hydronephrosis. 2. No acute process within the abdomen or pelvis on unenhanced exam. 3. Colonic diverticulosis without evidence of acute diverticulitis. Electronically signed by: Enrique Gil M.D. 12/26/2016 9:32 PM Dictated Date/Time: 12/26/2016 9:26 PM Laboratory Results 12/26/16 21:00 Red Blood Count 5.34, Mean Corpuscular Volume 85.4, Mean Corpuscular Hemoglobin 30.7, Mean Corpuscular Hemoglobin Concent 36.0, Mean Platelet Volume 9.7, Neutrophils (%) (Auto) 55.7, Lymphocytes (%) (Auto) 26.5, Monocytes (%) (Auto) 13.4, Eosinophils (%) (Auto) 3.8, Basophils (%) (Auto) 0.3, Neutrophils # (Auto ) 3.82, Lymphocytes # (Auto) 1.82, Monocytes # (Auto) 0.92, Eosinophils # (Auto ) 0.26, Basophils # (Auto) 0.02 12/26/16 21:00 Test 12/26/16 21:00 12/26/16 21:30 12/26/16 23:34 White Blood Count 6.86 K/uL (4.8-10.8) Red Blood Count 5.34 M/uL (4.7-6.1) Hemoglobin 16.4 g/dL (14.0-18.0) Hematocrit 45.6 % (42-52) Mean Corpuscular Volume 85.4 fL (80-100) Mean Corpuscular Hemoglobin 30.7 pg (25-34) Mean Corpuscular Hemoglobin Concent 36.0 g/dl (32-36) Platelet Count 210 K/uL (130-400) Mean Platelet Volume 9.7 fL (7.4-10.4) Neutrophils (%) (Auto) 55.7 % Lymphocytes (%) (Auto) 26.5 % Monocytes (%) (Auto) 13.4 % Eosinophils (%) (Auto) 3.8 % Basophils (%) (Auto) 0.3 % Neutrophils # (Auto) 3.82 K/uL (1.4-6.5) Lymphocytes # (Auto) 1.82 K/uL (1.2-3.4) Monocytes # (Auto) 0.92 K/uL (0.11-0.59) Eosinophils # (Auto) 0.26 K/uL (0-0.5) Basophils # (Auto) 0.02 K/uL (0-0.2) RDW Standard Deviation 38.8 fL (36.4-46.3) RDW Coefficient of Variation 12.4 % (11.5-14.5) Immature Granulocyte % (Auto) 0.3 % Immature Granulocyte # (Auto) 0.02 K/uL (0.00-0.02) Anion Gap 9.0 mmol/L (3-11) Est Creatinine Clear Calc Drug Dose 66.1 ml/min Estimated GFR () 74.1 Estimated GFR (Non- 64.0 BUN/Creatinine Ratio 12.8 (10-20) Calcium Level 8.7 mg/dl (8.5-10.1) Total Bilirubin 0.5 mg/dl (0.2-1) Direct Bilirubin < 0.1 mg/dl (0-0.2) Aspartate Amino Transf (AST/SGOT) 17 U/L (15-37) Alanine Aminotransferase (ALT/SGPT) 22 U/L (12-78) Alkaline Phosphatase 58 U/L (45-117) Troponin I < 0.015 ng/ml (0-0.045) Total Protein 7.0 gm/dl (6.4-8.2) Albumin 3.9 gm/dl (3.4-5.0) Lipase 155 U/L (73-393) Urine Color YELLOW Urine Appearance CLEAR (CLEAR) Urine pH 7.5 (4.5-7.5) Urine Specific [place] 1.006 (1.000-1.030) Urine Protein NEG (NEG) Urine Glucose (UA) NEG (NEG) Urine Ketones NEG (NEG) Urine Occult Blood NEG (NEG) Urine Nitrite NEG (NEG) Urine Bilirubin NEG (NEG) Urine Urobilinogen NEG (NEG) Urine Leukocyte Esterase NEG (NEG) Bedside Lactic Acid Venous 0.55 mmol/L (0.90-1.70) Laboratory results reviewed by me Medications Administered Medications (Trade) Dose Ordered Sig/Anita Route Start Time Stop Time Status Last Admin Dose Admin Sodium Chloride (Nss 1000ml) 1,000 ml @ 125 mls/hr Q8H STAT IV 12/26/16 20:41 12/27/16 04:40 12/26/16 20:41 125 MLS/HR Acetaminophen (Tylenol Tab) 1,000 mg NOW STAT PO 12/27/16 00:37 12/27/16 00:38 DC 12/27/16 01:02 1,000 MG ECG Indication: abdominal pain Rate (beats per minute): 64 Rhythm: normal sinus Findings: Q waves (Anterior), no acute ischemic change, no ectopy ED Course 2040: Ordered NSS 1000 ml @ 125 mls/hr IV. 2048: The patient was evaluated in room C2. A complete history and physical exam was performed. 2316: I reassessed the patient. He still has abdominal pain. He did not want anything for pain at this time. 0037: Ordered Tylenol Tab 1000 mg PO. Medical Decision Triage Nursing notes reviewed. The patient's presentation and history were concerning for abdominal pain. Etiologies such as appendicitis, diverticulitis, obstruction, inflammatory bowel disease, renal colic, PUD, biliary pathology, pancreatitis, mesenteric ischemia, aortic pathology, infections, genitourinary, UTI, perforated viscus, C. difficile infection, as well as others were entertained. The patient was evaluated. His CBC, chemistry panel, LFTs, lipase and urinalysis were unremarkable. The patient underwent CT imaging which did not reveal any obvious source. Cardiac markers are negative and ECG was negative. The patient wanted some Tylenol only for headache. He did not want anything for his abdominal pain. He still in complains of pain of 5 out of 10. Clinically he looked well. He was unable to provide a stool specimen. The patient underwent CT angiography to rule out any pathology wrist without contrast. This was unremarkable except for possibly some signs of gastroenteritis. Since the patient is having diarrhea this may explain his symptoms. The patient was given a stool collection cup. He will need follow- up closely with his primary physician. By the evaluation outlined above other emergent etiologies such as those listed in the differential, as well as others, were deemed relatively unlikely. The patient and were informed about the findings as listed above. All questions were answered and they were pleased with the treatment. Return instructions were outlined and the patient was discharged in stable condition. The patient was referred to his PCP for follow-up tomorrow for a recheck of the current condition. The chart was completed utilizing [employer] Speech voice recognition software. Grammatical errors, random word insertions, pronoun errors, and incomplete sentences are an occasional consequence of this system due to software limitations, ambient noise, and hardware issues. Any formal questions or concerns about the content, text, or information contained within the body of this dictation should be directly addressed to the physician for clarification. Impression Primary Impression: Generalized abdominal pain Additional Impression: Diarrhea Scribe Attestation The scribe's documentation has been prepared under my direction and personally reviewed by me in its entirety. I confirm that the note above accurately reflects all work, treatment, procedures, and medical decision making performed by me. Departure Information Dispostion Home / Self-Care Referrals Rohit Vora III, M.D. (PCP) Patient Instructions My [facility] Additional Instructions ABDOMINAL PAIN INSTRUCTIONS: Acetaminophen(Tylenol) may be used for fever or pain. Use 1000mg every six hours as needed. Avoid using more than 4000mg in a 24 hour period. Rest and drink plenty of fluids as tolerated. Slow sips of water or sports drinks are recommended instead of large amounts all at once. Continue current medications. Once your stomach is settled start with a clear liquid diet (jello, soup broth, etc.) and then advance as tolerated. You should avoid full, heavy meals for about 24 hrs from the time your symptoms resolved. Collect a stool specimen to take 2 your primary doctor for C. difficile testing. Return to the ER immediately for worsening or persistent abdominal pain, vomiting, fevers, chest pains, difficulty breathing, black or bloody stools, worsening of your condition, or as needed. Follow up with your primary physician tomorrow for a recheck of your current condition. Problem Qualifiers Additional Impression: Diarrhea Diarrhea type: unspecified type Qualified Codes: R19.7 - Diarrhea, unspecified
[2016-12-27 01:24] VITALS: BP 139/59; PULSE 68; O2SAT 98
--- NOTE | 2016-12-27 06:54 | DIAGNOSTIC IMAGING REPORT ---
CT angiogram ANGIO ABD/PELVIS WITH CONTRAST CLINICAL HISTORY: Pain nausea TECHNIQUE: Transaxial images with multi axial reformatted COMPARISON STUDY: 09/30/2016 FINDINGS: Mild atherosclerotic abdominal aorta as well as iliac arterial vasculature. No evidence for aneurysm or dissection. Lung bases are clear. Liver spleen and pancreas are unremarkable. Kidneys negative for hydronephrosis. Bowel pattern is nonobstructive. Mild colonic diverticulosis. No evidence for acute diverticulitis. IMPRESSION: 1. Mild left ischemic change abdominal and pelvic arterial vasculature. 2. No evidence for aneurysm or dissection. 3. Mild colonic diverticulosis. 4. Otherwise negative study Electronically signed by: Ke Panchal M.D. 12/27/2016 6:52 AM Dictated Date/Time: 12/27/2016 6:49 AM
[2017-06-21] MEDS ORDERED: ATOR10TA82 PO (01:28)
== END 2016-12-27 01:25 | disposition home or self-care (01) ==
LOC: C.EDB 19:25 → C.EDC 12-27 01:25
DX: R10.84 Generalized abdominal pain (principal); R19.7 Diarrhea, unspecified

== ENCOUNTER 2017-06-21 00:06 | Emergency (ER) | payer BC ==
[~2017-06-21] VITALS: Ht 172.7 cm; Wt 81.6 kg
[~2017-06-21 00:06] MED LIST changes: -TADA10TA PO; -VNCS125 PO
[2017-06-21 00:15] VITALS: Ht 172.7 cm; Wt 81.6 kg
[2017-06-21] MEDS ORDERED: MoRPHine SULFATE 4 MG/ML 1 ML CARP\\VIAL IV STA (00:49)
[2017-06-21] MEDS ORDERED: ONDANSETRON INJ 2 MG/ML 2 ML VIAL IV STA (00:49)
[2017-06-21] MEDS ORDERED: SODIUM CHLORIDE 0.9% 1000ML 1,000 ML IV STA (00:49)
[2017-06-21 01:18] LABS: BASO % 0.3 %; BASO ABS # 0.02 K/uL (0-0.2); COMPLETE YES; EOS % 4.1 %; HEMATOCRIT 43.4 % (42-52); IG% 0.2 %; LYMPH % 34.3 %; LYMPH ABS # 2.08 K/uL (1.2-3.4); MEAN CELL VOLUME 85.3 fL (80-100); MEAN CORPUSCULAR HEMOGLOBIN 30.8 pg (25-34); MEAN CORPUSCULAR HGB CONC 36.2 g/dl (32-36); MEAN PLATELET VOLUME 9.5 fL (7.4-10.4); MONO % 12.7 %; NEUT % 48.4 %; PLATELET COUNT 209 K/uL (130-400); RED BLOOD COUNT 5.09 M/uL (4.7-6.1); WHITE BLOOD COUNT 6.07 K/uL (4.8-10.8)
[2017-06-21] MEDS ORDERED: [UNRECOGNIZED DRUG - REMARK] PO (01:22)
[2017-06-21] MEDS ORDERED: SILD100T PO (01:28)
[2017-06-21] MEDS ORDERED: PANT40TA PO (01:28)
[2017-06-21] MEDS ORDERED: ATOR10TA88 PO (01:28)
[2017-06-21 01:35] LABS: BUN/CREATININE RATIO 19.6 (10-20); CALCIUM 8.6 mg/dl (8.5-10.1); CREATININE 0.96 mg/dl (0.60-1.40); POTASSIUM 3.5 mmol/L (3.5-5.1)
[2017-06-21 01:37] LABS: URINE APPEARANCE CLEAR (CLEAR); URINE BILIRUBIN NEG (NEG); URINE COLOR YELLOW; URINE NITRITE NEG (NEG); URINE SPECIFIC GRAVITY 1.011 (1.000-1.030); UROBILINOGEN NEG (NEG); ZZUR CULT IF INDIC CLEAN CATCH NO
[2017-06-21 01:39] LABS: MANUAL MICROSCOPIC REQUIRED? NO; REVIEW REQ? NO
[2017-06-21 03:16] VITALS: BP 118/62; PULSE 71; TEMP 36.7; O2SAT 97
--- NOTE | 2017-06-21 06:57 | DIAGNOSTIC IMAGING REPORT ---
ABDOMEN 2VIEW W/PA CHEST RTN CLINICAL HISTORY: EPIGASTRIC PAIN COMPARISON STUDY: Chest x-ray dated 03/18/2017 FINDINGS: The cardiac and mediastinal contours remain stable. Subcentimeter right apical nodules remain similar. No free air is visualized.] Supine views the abdomen reveal no abnormally dilated loops of large or small bowel. There are no transition zones indicate bowel obstruction. There are scattered right mid abdominal air-fluid levels. IMPRESSION: 1. No evidence of bowel obstruction. No evidence of free air 2. Stable nonspecific right mid abdominal air-fluid levels 3. Stable subcentimeter right apical nodules Electronically signed by: Aly Vickers M.D. 06/21/2017 6:56 AM Dictated Date/Time: 06/21/2017 6:55 AM
--- NOTE | 2017-06-21 07:19 | EMERGENCY ROOM VISIT NOTE ---
History Report prepared by Crispin: Negrita Cote Under the Supervision of: Dr. Leeann Paz M.D. First contact with patient: 00:35 Chief Complaint: ABDOMINAL PAIN Stated Complaint: PAIN IN STOMACH History of Present Illness The patient is a 62 year old male who presents to the Emergency Room with complaints of worsening abdominal pain starting 3 days ago. The patient states that he had this pain one time before and it was when he had C-Diff. The patient notes that the pain is slightly worse when eating. The patient denies diarrhea, vomiting, fever, and taking aspirin or ibuprofen. He notes he just had a small bowel movement here at the ED and it was slightly runny. Source of History: patient Onset: 3 days ago Position: abdomen Quality: other ("similar to previous episode of C-Diff") Timing: worsening Modifying Factors (Worsening): eating Associated Symptoms: No fevers, No vomiting, No diarrhea Note: The patient denies taking a lot of Aspirin or Ibuprofen. Review of Systems See HPI for pertinent positives & negatives. A total of 10 systems reviewed and were otherwise negative. Past Medical & Surgical Medical Problems: (1) C. difficile colitis (2) GERD (gastroesophageal reflux disease) Surgical Problems: (1) History of appendectomy Family History No significant family history Social History Smoking Status: Never Smoker Alcohol Use: none Drug Use: none Marital Status: Housing Status: lives with family Occupation Status: employed Current/Historical Medications Scheduled Atorvastatin (Lipitor), 10 MG PO DAILY Fluticasone Propionate (Nasal) (Flonase Allergy Relief), 2 SPRAYS LATRELL DAILY Pantoprazole (Protonix), 40 MG PO QAM Ranitidine (Zantac), 300 MG PO HS Sildenafil Citrate (Viagra), 50-100 MG PO PRN Allergies Coded Allergies: No Known Allergies (Unverified , 06/21/17) Physical Exam Vital Signs Date Time Temp Pulse Resp B/P (MAP) Pulse Ox O2 Delivery O2 Flow Rate FiO2 06/21/17 03:16 36.7 71 18 118/62 97 06/21/17 02:47 36.7 68 20 123/79 98 Room Air 06/21/17 00:15 36.5 78 20 126/86 98 Room Air Physical Exam Vital signs reviewed. General: Well-appearing, in no significant distress. HEENT: No scleral icterus, PERRLA, neck supple. Atraumatic. Poor dentition. Cardiovascular: Regular rate and rhythm, no extra sounds. Pulmonary: Clear to auscultation bilaterally, normal work of breathing. Abdomen: Soft, tenderness to palpation in epigastric region, no rebound or guarding, nondistended, positive bowel sounds. Musculoskeletal: Atraumatic, no peripheral edema. Neurologic: Patient awake alert and oriented x 3, full strength in all 4 extremities. Cranial nerves 2 through 12 grossly intact. Skin: Warm, dry, no rash Medical Decision & Procedures ER Provider Diagnostic Interpretation: Radiology results as stated below per my review and radiologist interpretation: ABDOMEN 2 VIEW X-RAY: Findings: The results were interpreted by me. No focal long consolidation. No failure. Fecal retention. No evidence of obstruction or free air. US RUQ: Liver is normal in size with increased echogenicity suggesting hepatic steatosis. Gallbladder is unremarkable. Negative sonographic Bernard's sign. Common bile duct is within normal limits measuring up to 4.2 mm. Right kidney is unremarkable. No stones, masses, or hydronephrosis. Radiologist: Bandar Henriquez MD Study ready at 02:34 and initial results transmitted at 02:45. Laboratory Results 06/21/17 01:05 Red Blood Count 5.09, Mean Corpuscular Volume 85.3, Mean Corpuscular Hemoglobin 30.8, Mean Corpuscular Hemoglobin Concent 36.2, Mean Platelet Volume 9.5, Neutrophils (%) (Auto) 48.4, Lymphocytes (%) (Auto) 34.3, Monocytes (%) (Auto) 12.7, Eosinophils (%) (Auto) 4.1, Basophils (%) (Auto) 0.3, Neutrophils # (Auto ) 2.94, Lymphocytes # (Auto) 2.08, Monocytes # (Auto) 0.77, Eosinophils # (Auto ) 0.25, Basophils # (Auto) 0.02 06/21/17 01:05 Test 06/21/17 01:05 White Blood Count 6.07 K/uL (4.8-10.8) Red Blood Count 5.09 M/uL (4.7-6.1) Hemoglobin 15.7 g/dL (14.0-18.0) Hematocrit 43.4 % (42-52) Mean Corpuscular Volume 85.3 fL (80-100) Mean Corpuscular Hemoglobin 30.8 pg (25-34) Mean Corpuscular Hemoglobin Concent 36.2 g/dl (32-36) Platelet Count 209 K/uL (130-400) Mean Platelet Volume 9.5 fL (7.4-10.4) Neutrophils (%) (Auto) 48.4 % Lymphocytes (%) (Auto) 34.3 % Monocytes (%) (Auto) 12.7 % Eosinophils (%) (Auto) 4.1 % Basophils (%) (Auto) 0.3 % Neutrophils # (Auto) 2.94 K/uL (1.4-6.5) Lymphocytes # (Auto) 2.08 K/uL (1.2-3.4) Monocytes # (Auto) 0.77 K/uL (0.11-0.59) Eosinophils # (Auto) 0.25 K/uL (0-0.5) Basophils # (Auto) 0.02 K/uL (0-0.2) RDW Standard Deviation 38.3 fL (36.4-46.3) RDW Coefficient of Variation 12.3 % (11.5-14.5) Immature Granulocyte % (Auto) 0.2 % Immature Granulocyte # (Auto) 0.01 K/uL (0.00-0.02) Urine Color YELLOW Urine Appearance CLEAR (CLEAR) Urine pH 7.0 (4.5-7.5) Urine Specific [place] 1.011 (1.000-1.030) Urine Protein NEG (NEG) Urine Glucose (UA) NEG (NEG) Urine Ketones NEG (NEG) Urine Occult Blood NEG (NEG) Urine Nitrite NEG (NEG) Urine Bilirubin NEG (NEG) Urine Urobilinogen NEG (NEG) Urine Leukocyte Esterase NEG (NEG) Anion Gap 9.0 mmol/L (3-11) Est Creatinine Clear Calc Drug Dose 75.2 ml/min Estimated GFR () 96.4 Estimated GFR (Non- 83.2 BUN/Creatinine Ratio 19.6 (10-20) Calcium Level 8.6 mg/dl (8.5-10.1) Total Bilirubin 0.6 mg/dl (0.2-1) Direct Bilirubin 0.2 mg/dl (0-0.2) Aspartate Amino Transf (AST/SGOT) 20 U/L (15-37) Alanine Aminotransferase (ALT/SGPT) 26 U/L (12-78) Alkaline Phosphatase 69 U/L (45-117) Total Protein 6.7 gm/dl (6.4-8.2) Albumin 3.8 gm/dl (3.4-5.0) Lipase 181 U/L (73-393) Laboratory results per my review. Medications Administered Medications (Trade) Dose Ordered Sig/Anita Route Start Time Stop Time Status Last Admin Dose Admin Morphine Sulfate (MoRPHine SULFATE INJ) 4 mg NOW STAT IV 06/21/17 00:49 06/21/17 00:51 DC 06/21/17 01:04 4 MG Ondansetron HCl (Zofran Inj) 4 mg NOW STAT IV 06/21/17 00:49 06/21/17 00:51 DC 06/21/17 01:04 4 MG Sodium Chloride 1,000 ml @ 200 mls/hr Q5H STAT IV 06/21/17 00:49 06/21/17 03:48 DC 06/21/17 01:04 200 MLS/HR ED Course 0047: Past medical records reviewed. The patient was evaluated in room A4B. A complete history and physical examination was performed. 0049: Ordered NSS 1000 ml @ 200 mls/hr IV, Zofran Inj 4 mg IV, Morphine Sulfate 4 mg IV. 0258: Upon reevaluation, the patient appeared to have improvement of his symptoms. I discussed findings with the patient. He verbalized agreement of the treatment plan. The patient was discharged home. Medical Decision Differential diagnosis: Etiologies such as diverticulitis, PUD, biliary pathology, UTI, pancreatitis, obstruction, mesenteric ischemia, aortic pathology, infections, inflammatory bowel disease, renal colic, as well as others were entertained. This pt was evaluated and appeared to be in no distress. IV access was obtained and lab work was drawn. Pt was placed on the bender hand. Abd XR series was obtained and reveals no obstruction or FA. There is a large amount of stool in LUQ. UA is negative, lab work is fairly unrevealing. Pt was advised to use miralax until he has a BM. He will increase fiber and water in the diet. He will f/u with PC this week and return to the ED for worsening of symptoms or any medical concerns. Impression Primary Impression: Constipation Scribe Attestation The scribe's documentation has been prepared under my direction and personally reviewed by me in its entirety. I confirm that the note above accurately reflects all work, treatment, procedures, and medical decision making performed by me. Departure Information Dispostion Home / Self-Care Referrals Rohit Vora III, M.D. (PCP) Forms HOME CARE DOCUMENTATION FORM, IMPORTANT VISIT INFORMATION Patient Instructions My [facility] Additional Instructions Diagnosis: Constipation Increase the fiber and water in your diet. MiraLAX 1 capful every 8 hours until the BM. Follow-up with your physician this week for reevaluation if symptoms persist. Return to the ER for worsening of symptoms or any medical concerns.
--- NOTE | 2017-06-21 07:34 | DIAGNOSTIC IMAGING REPORT ---
GALLBLADDER-ABD LIMITED CLINICAL HISTORY: 62 years-old Male presenting with epigastric pain. TECHNIQUE: Real-time grayscale and limited color Doppler ultrasound imaging of the abdomen limited to the right upper quadrant was performed. COMPARISON: Ultrasound from 09/30/[address] from 12/26/2016. FINDINGS: Pancreas: Largely obscured due to overlying bowel gas. Liver: Mildly hyperechogenic parenchyma, although the right hemidiaphragm remains visible, likely indicating mild steatosis. The liver measures 14.3 cm in maximal sagittal dimension. No sonographic evidence of hepatic mass. Main portal vein patent with normal directional flow. Biliary: No intrahepatic biliary ductal dilatation. Common bile duct measures up to 4 mm in diameter. Gallbladder: No evidence of gallstones, gallbladder wall thickening, gallbladder distention, or pericholecystic fluid or inflammatory change. Sonographic Bernard's sign negative. Right kidney: Normal in appearance. No hydronephrosis. Ascites: None. IMPRESSION: 1. Suggestion of mild hepatic steatosis. 2. Otherwise normal right upper quadrant ultrasound. No cholelithiasis or biliary ductal dilatation. Electronically signed by: Sonu Landis M.D. 06/21/2017 7:33 AM Dictated Date/Time: 06/21/2017 7:31 AM
== END 2017-06-21 03:17 | disposition home or self-care (01) ==
LOC: C.EDA 00:54
DX: K59.00 Constipation, unspecified (principal); K21.9 Gastro-esophageal reflux disease without esophagitis; Z79.899 Other long term (current) drug therapy

== ENCOUNTER 2019-01-01 10:54 | Observation (INO) ==
[2019-01-01] MEDS ORDERED: NITROGLYCERIN SL 0.4 MG/TAB TAB SL STA (11:18)
[2019-01-01] MEDS ORDERED: ASPIRIN CHEW 324 MG PO STA (11:18)
[2019-01-01] MEDS ORDERED: ASPIRIN CHEW 324 MG ONE (11:19)
[2019-01-01 11:26] LABS: Basophils # (auto) 0.02 K/uL (0-0.2); Basophils % (auto) 0.3 %; Eosinophils # (auto) 0.18 K/uL (0-0.5); Eosinophils % (auto) 3.1 %; Hematocrit (blood only) 45.7 % (42-52); Hemoglobin 16.4 g/dL (14.0-18.0); Immature Granulocytes # (auto) 0.01 K/uL (0.00-0.02); Immature Granulocytes % (auto) 0.2 %; Lymphocytes # (auto) 1.65 K/uL (1.2-3.4); Mean Corpuscular Hgb Conc 35.9 g/dL (32-36); Mean Corpuscular Volume 86.1 fL (80-100); Mean Platelet Volume 9.7 fL (7.4-10.4); Monocytes % (auto) 11.9 %; Neutrophils # (auto) 3.34 K/uL (1.4-6.5); Neutrophils % (auto) 56.5 %; Platelet Count 211 K/uL (130-400); RDW Coefficient of Variation 12.5 % (11.5-14.5); RDW Standard Deviation 39.5 fL (36.4-46.3); Red Blood Count 5.31 M/uL (4.7-6.1)
--- NOTE | 2019-01-01 11:31 | XRay Report ---
XR chest 1V portable CLINICAL HISTORY: Chest Pain dyspnea COMPARISON STUDY: No previous studies for comparison. FINDINGS: The bones soft tissues and hemidiaphragms are normal. The cardiomediastinal silhouette is n ormal. The lungs are clear. The pulmonary vasculature is normal. IMPRESSION: Negative chest. The above report was generated using voice recognition software. It may contain grammatical, syntax or spelling errors. Electronically signed by: Ke Panchal M.D. 01/01/2019 11:30 AM
[2019-01-01 11:43] LABS: Alanine Aminotransferase 29 U/L (12-78); Albumin Level 4.2 gm/dl (3.4-5.0); Aspartate Aminotransferase 26 U/L (15-37); BUN Creatinine Ratio 14.6 (10-20); Blood Urea Nitrogen 15 mg/dl (7-18); Calcium 9.2 mg/dl (8.5-10.1); Carbon Dioxide 24 mmol/L (21-32); Chloride 108 mmol/L (98-107); Creatinine Clr Calc Pharmacy 68.5 ml/min; Est GFR (African American) 86.9; Glucose 104 mg/dl (70-99); Potassium 3.6 mmol/L (3.5-5.1); Sodium 139 mmol/L (136-145)
[2019-01-01 11:47] LABS: Albumin Globulin Ratio 1.2 (0.9-2); Alkaline Phosphatase 55 U/L (45-117); Globulin 3.4 gm/dl (2.5-4.0); Total Protein 7.6 gm/dl (6.4-8.2); Troponin I < 0.015 ng/ml (0-0.045)
[2019-01-01] MEDS ORDERED: OPTIRAY 320 125ml IV PRN (12:11)
--- NOTE | 2019-01-01 12:16 | CT Scan Report ---
CT angio chest PE protocol CT DOSE: 521.59 mGycm HISTORY: Dyspnea cp and sob TECHNIQUE: Multiaxial CT images of the chest were performed following the intravenous administration of contrast to evaluate the pulmonary arteries. Maximal intensity projection images were also obtaine d. A dose lowering technique was utilized adhering to the principles of ALARA. COMPARISON STUDY: None. FINDINGS: There is a normal caliber thoracic aorta with no evidence for dissection. There is no evide nce for pulmonary embolus. No pleural effusions. No pneumothorax. The liver and spleen are unremarkab le. No mediastinal or hilar lymphadenopathy. The central airways are patent. The lungs are clear. 6 m m nodular density right apex. Additional minimal scattered focal areas of subtle pleural thickening c onsidered benign. Mild right apical fibrotic change. No significant mediastinal or hilar adenopathy. IMPRESSION: 1. Study is negative for pulmonary embolus. 2. Lungs are clear. 3. 6 mm linear nodule right pulmonary apex. Routine follow-up per Fleischner criteria. Please refer to below summary of Fleischner criteria recommendations for follow-up of incidental CT n odules (Ene Rosenthal, Guidelines for management of small pulmonary nodules detected on CT scans: A sta tement from the Fleischner Society, Radiology 237: [phone].) SOLID NODULES Solitary nodule size: <6 mm * low risk patients: no follow-up needed * high risk patients: optional CT at 12 months Solitary nodule size: 6-8 mm * low risk patients: follow-up at 6-12 months, then consider further follow-up at 18-24 months * high risk patients: initial follow-up CT at 6-12 months and then at 18-24 months if no change Solitary nodule size: >8 mm * either low or high risk patients - consider follow-up CT at 3 months, and/or CT-PET, and/or biopsy Multiple nodules size: <6 mm * low risk patients: no routine follow-up * high risk patients: optional CT at 12 months Multiple nodules size: 6-8 mm * low risk patients: follow-up at 3-6 months, then consider further follow-up at 18-24 months * high risk patients: follow-up at 3-6 months, then at 18-24 months if no change Multiple nodules size: >8 mm * low risk patients: follow-up at 3-6 months, then consider further follow-up at 18-24 months * high risk patients: follow-up at 3-6 months, then at 18-24 months if no change Note: newly detected indeterminate nodule in persons 35 years of age or older. * low risk patients: minimal or absent history of smoking and/or other known risk factors * high risk patients: history of smoking or of other known risk factors (e.g. first degree relative with lung cancer, or exposure to asbestos, radon, uranium) * if a nodule up to 8 mm is partly solid or is ground glass further follow-up is required after 24 m onths to exclude possible slow growing adenocarcinoma (SIMON) SUBSOLID NODULES Solitary pure ground-glass nodule * nodule size <6 mm - no CT follow-up required * nodule size >=6 mm - follow-up CT at 6-12 months, then every 2 years until 5 years Solitary part-solid nodule * nodule size <6 mm - no CT follow-up required * nodule size >=6 mm - follow-up CT at 3-6 months. If unchanged, and solid component remains <6 mm, then annual follow-up for 5 years Multiple subsolid nodules * nodule size <6 mm - follow-up CT at 3-6 months, consider further follow-up at 2 and 4 years if sta ble * nodule size >=6 mm - follow-up CT at 3-6 months, subsequent management based on the most suspiciou s nodule(s) The above report was generated using voice recognition software. It may contain grammatical, syntax or spelling errors. Electronically signed by: Ke Panchal M.D. 01/01/2019 12:15 PM
[2019-01-01] MEDS ORDERED: MoRPHine SULFATE 4 MG/ML 1 ML CARP\\VIAL IV STA (13:33)
--- NOTE | 2019-01-01 14:30 | History & Physical Report ---
Date of Service January 01, 2019 Assessment & Plan (1) Chest pain: Pt presented to ER with c/o intermittent CP started on 12/31/18. Described as sharp pain, non-radiating and lasts approx 5 minutes. Initially increased CP with movement and deep inspiration. Reports intermittent dizziness not ass ociated with CP over the past day. SOB with walking up a flight of stairs or slight incline after approx 20 steps for several years. Initial troponin negative. EKG: t wave inversion septal CHEST PAIN R/O ACS. Risk factors:hyperlipidemia, FH CAD -In ER given ASA 324mg, nitro x 1 with some decreased CP and resolution of CP with morphine 4mg. -Monitor Vitals -Repeat EKG in am -Will trend troponin -Echo -lipid panel in am, continue statin -ASA -Nitro prn CP and repeat EKG for CP -npo midnight -Cardiology consult (2) GERD (gastroesophageal reflux disease): -continue PPI, H2 tamica (3) Pulmonary nodule: CT CHEST: 6 mm linear nodule right pulmonary apex -out patient follow up with repeat CT chest in 6-12 months recommended DVT Prophylaxis -Lovenox SQ Full Code Follows with Dr Vora for routine care Pt was seen with Dr Dunn. See addendum History of Present Illness Chief Complaint: CP Primary Care Provider: Rohit Vora MD Pt is 63 y/o M with PMH GERD, Ruelas's esophagus, HLD presented to ER with c/o CP started yesterday. Pt states had onset of left anterior CP yesterday while sitting driving. 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 Pain is described as sharp and non- radiating and lasts approx 5 minutes. CP has been intermittent since yesterday and can occur with rest or walking. States increased CP with deep inspiration and with movement. Denies diaphoresis. Reports intermittent dizziness not associated with CP over the past day also. Pt reports SOB with walking up a flight of stairs or slight incline after approx 20 steps for several years, u nsure if this has gotten worse. Pt reports night sweats for past several months. Denies weight loss. Pt states had a PEÑA last week and was taking ibuprofen 400mg twice a day. Hx worsening GERD symptoms a couple of weeks ago and ranitidine was added in addition to his protonix and pt reports no further indigestion. Denies fever/chills, diaphoresis, N/V/D/C, dizziness, syncope, vision changes, neck p ain, orthopnea, palpitations, cough, sore throat, choking, otalgia, rhinorrhea, abdominal pain, paresthesias, weakness, extremity weakness, extremity edema, rashes, urinary symptoms. Pt denies any known CAD. FH CAD - brother AL age 52, sister AL in her 50's. In ER received ASA 324mg, nitro x 1 with some decreased CP and resolution of CP with morphine 4mg. Allergies Allergy/AdvReac Type Severity Reaction Status Date / Time No Known Allergies Allergy Unverified 01/01/19 11:47 Home Medications Home Medications Medication Instructions Recorded Confirmed Type atorvastatin 10 mg PO DAILY 01/01/19 01/01/19 History ibuprofen [Advil] 200 mg PO Q6H PRN 01/01/19 01/01/19 History multivitamin 1 tab PO QAM 01/01/19 01/01/19 History pantoprazole 40 mg PO DAILY 01/01/19 01/01/19 History ranitidine HCl 300 mg PO HS 01/01/19 01/01/19 History sildenafil 100 mg PO UD 01/01/19 01/01/19 History Past Med/Surg History Medical History Barretts esophagus (Chronic) GERD (gastroesophageal reflux disease) (Chronic) C. 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 Required: No Beliefs That Will Affect Care: None Current Living Situation: Spouse Other Information That Helps Us Care for You: No Feels Safe at Home: Yes Safety Concerns: Feels Safe At This Time Smoking Status: Never smoker Hx Alcohol Use: No Hx Substance Use: No Review of Systems All systems reviewed & are unremarkable except as noted in HPI & below Physical Exam Vital Signs (Past 24 Hours): Last Vital Signs Temp 36.7 C 01/01/19 11:01 Pulse 66 01/01/19 14:00 Resp 20 01/01/19 14:00 BP 142/96 H 01/01/19 14:00 Pulse Ox 96 01/01/19 14:00 Physical Exam: General: no acute distress, WDWN Head: normocephalic, atraumatic Eyes: PERRL, EOM's intact, conjunctiva non-injected, anicteric ENT: normal inspection external ears, nose, mucous membranes moist Neck: supple, trachea midline Lungs: clear, no respiratory distress, no wheezing/rhonchi/rales CV: RRR, no murmur, no pretibial edema Chest: no rashes, non-tender to palpation at this time (pt had morphine prior to exam) Abd: normal BS, soft, non-tender Ext: no cyanosis, no calf tenderness Neuro: A&O x 3, no focal deficits noted, normal affect Skin: warm, dry Results & Data Laboratory Results Short CBC 01/01/19 Range/Units 11:14 WBC 5.90 (4.8-10.8) K/uL Hgb 16.4 (14.0-18.0) g/dL Hct 45.7 (42-52) % Plt Count 211 (130-400) K/uL BMP 01/01/19 11:14 Sodium 139 Potassium 3.6 Chloride 108 H Carbon Dioxide 24 BUN 15 Creatinine 1.04 Glucose 104 H Calcium 9.2 Cardiac Enzymes 01/01/19 01/01/19 Range/Units 11:14 17:35 Troponin I < 0.015 < 0.015 (0-0.045) ng/ml Liver Function 01/01/19 Range/Units 11:14 Total Bilirubin 1.0 (0.2-1) mg/dl AST 26 (15-37) U/L ALT 29 (12-78) U/L Alkaline Phosphatase 55 (45-117) U/L Albumin 4.2 (3.4-5.0) gm/dl Diagnostic Findings CXR: IMPRESSION: Negative chest. CTA CHEST: IMPRESSION: 1. Study is negative for pulmonary embolus. 2. Lungs are clear. 3. 6 mm linear nodule right pulmonary apex. Routine follow-up per Fleischner criteria. ECG Rate (beats per minute): 72 Rhythm: normal sinus Findings: + T-wave inversion (septal) Supervising Physician Co-Signing Physician Notes Care coordinated with Araceli MILLAN Agree with able note. Patient seen and examin ed. Please refer to her notes for full details. Vital signs reviewed. Physical exam: General exam: Alert and oriented. Not in acute distress. CVS: S1 and S2 heard, regular rate and rhythm, no murmurs. RS: Clear to auscultation, no wheezing or crackles. ABD: Soft, bowel sounds present, nontender, no distention. EVENT SERVICES MANAGER: Nonfocal. EXT: No edema, no erythema. Labs: Reviewed. Assessment and plan: Chest pain relieved by nitro and morphine in Er will observe in tele serial ce, echo and cardio consult in am for possible stress test Pulmonary nodule 6mm rt pulmonary apex needs followup Other diagnosis and plan of care as per []. Jesus ferrari MD. (1) Chest pain Chest pain type: unspecified Qualified Code(s): R07.9 - Chest pain, unspecified
--- NOTE | 2019-01-01 14:48 | Emergency Department Note ---
Entered by Corinna Jackson acting as a scribe for Bandar Jimenez DO History of Present Illness General Chief complaint: Chest Pain Stated complaint: CHEST PAIN Source: patient History of Present Illness Provider complaint: chest pain Onset (ago): day(s) (yesterday morning) Location: chest Pain Consistency: + intermittent Maximum Pain Intensity: 6 Quality: + sharp Associated symptoms: + other (shortness of breath, lightheadedness) The patient is a 63 year old male who presents to the Emergency Room with complaints of intermittent, left-sided chest pain beginning yesterday morning. He describes the pain as sharp, and notes it occurs about every 5 minutes. He reports his symptoms do not change with movement, eating, or drinking. The patient denies arm pain or jaw pain. He notes mild shortness of breath and lightheadedness. The patient denies history of exertional chest pain or similar symptoms. He denies abdominal pain, nausea, vomiting, diarrhea, cough, or runny nose. Patient denies diabetes, hypertension, hyperlipidemia, CAD, history of sudden at a young age, and smoking. No other exacerbating or remitting factors. Home Medications Home Medications Medication Instructions Recorded Confirmed Type atorvastatin 10 mg PO DAILY 01/01/19 01/01/19 History ibuprofen [Advil] 200 mg PO Q6H PRN 01/01/19 01/01/19 History multivitamin 1 tab PO QAM 01/01/19 01/01/19 History pantoprazole 40 mg PO DAILY 01/01/19 01/01/19 History ranitidine HCl 300 mg PO HS 01/01/19 01/01/19 History sildenafil 100 mg PO UD 01/01/19 01/01/19 History Allergies Allergy/AdvReac Type Severity Reaction Status Date / Time No Known Allergies Allergy Unverified 01/01/19 11:47 Past Med/Surg History Medical History GERD (gastroesophageal reflux disease) (Chronic) C. difficile colitis Surgical History History of appendectomy (Resolved) Social History Feels Safe at Home: Yes Smoking Status: Never smoker Review of Systems See HPI for pertinent positives & negatives. and A total of 10 systems reviewed and were otherwise negative Physical Exam Vital Signs Vital Signs - 24 hr 01/01/19 11:01 01/01/19 11:17 01/01/19 11:30 Temperature 36.7 C Temperature Source Oral Sepsis Recent Fever Within 48 Hours No Sepsis New/Unexplained Change in Mental Status No Sepsis Action Taken by Nursing No Action Required Pulse Rate 78 85 Pulse Rate from SpO2 Sensor 86 Respiratory Rate 16 14 Blood Pressure 133/81 120/74 Blood Pressure Mean 98 89 Pulse Oximetry 95 96 93 Oxygen Delivery Method Room Air Room Air Room Air 01/01/19 12:30 01/01/19 13:00 01/01/19 13:30 Temperature Temperature Source Sepsis Recent Fever Within 48 Hours Sepsis New/Unexplained Change in Mental Status Sepsis Action Taken by Nursing Pulse Rate 58 L 59 L 66 Pulse Rate from SpO2 Sensor 57 L 58 L 66 Respiratory Rate 16 18 20 Blood Pressure 112/74 107/77 129/88 Blood Pressure Mean 86 87 101 Pulse Oximetry 95 96 98 Oxygen Delivery Method Room Air Room Air Room Air 01/01/19 14:00 Temperature Temperature Source Sepsis Recent Fever Within 48 Hours Sepsis New/Unexplained Change in Mental Status Sepsis Action Taken by Nursing Pulse Rate 66 Pulse Rate from SpO2 Sensor 66 Respiratory Rate 20 Blood Pressure 142/96 H Blood Pressure Mean 111 Pulse Oximetry 96 Oxygen Delivery Method Room Air GENERAL: Sitting up in bed, disheveled, no distress, non-toxic EYE EXAM: normal conjunctiva. OROPHARYNX: no exudate, no erythema, lips, buccal mucosa, and tongue normal and mucous membranes are moist. NECK: supple, no nuchal rigidity, no adenopathy, non-tender LUNGS: Clear to auscultation. Normal chest wall mechanics HEART: no murmurs, S1 normal and S2 normal ABDOMEN: abdomen soft, non-tender, normo-active bowel, sounds, no masses, no rebound or guarding. BACK: Back is symmetrical on inspection and there is no deformity, no midline tenderness, no CVA tenderness. SKIN: no rashes and no bruising UPPER EXTREMITIES: upper extremities are grossly normal. LOWER EXTREMITIES: No pitting edema. Equal bilaterally. NEURO EXAM: Normal sensorium, cranial nerves II-XII grossly intact, normal speech, no gross weakness of arms, no gross weakness of legs. Course ED COURSE: Vital signs were reviewed and showed no abnormalities. The patients medical record was reviewed The above diagnostic studies were performed and reviewed. ED treatments and interventions as stated above. 1109: The patient was evaluated in room A2. A complete history and physical examination was performed. 1329: Upon reevaluation, the patient is resting. I discussed my findings with the patient and he understands and agrees with the treatment plan. 1334: I reviewed the patient's case with Wendi Mclaughlin PA-C, [place] hospitalist. She will evaluate the patient for further management. Based on the patients age, coexisting illnesses, exam and lab findings the decision to treat as an inpatient was made. The patient remained stable while under my care. The patient will be evaluated for further management. Consultations Consultation #1: Wendi Mclaughlin PA-C, [facility] Time: 13:34 Administered Medications Ioversol (Optiray 320 125ml) 120 ml IV ONCE PRN PRN Reason: Interaction Checking Stop: 01/05/19 12:10 Last Admin: 01/01/19 12:11 Dose: 120 ml Documented by: [id number] Discontinued Medications Aspirin (Aspirin) 324 mg PO NOW STA Stop: 01/01/19 11:19 Last Admin: 01/01/19 11:21 Dose: 324 mg Documented by: [id number] Aspirin (Aspirin) Confirm Administered Dose 324 mg .ROUTE .STK-MED ONE Stop: 01/01/19 11:20 Last Admin: 01/01/19 11:21 Dose: Not Given Documented by: [id number] Morphine Sulfate (Morphine Sulfate) 4 mg IV NOW STA Stop: 01/01/19 13:34 Last Admin: 01/01/19 13:45 Dose: 4 mg Documented by: [id number] Nitroglycerin (Nitrostat) 0.4 mg SL NOW STA Stop: 01/01/19 11:19 Last Admin: 01/01/19 11:24 Dose: 0.4 mg Documented by: [id number] Medical Decision Making Differential Diagnosis Etiologies such as shingles, musculoskeletal pain, pericarditis, myocarditis, cardiac ischemia, pericardial tamponade, pneumonia, pneumothorax, pleural effusion, hemothorax, pleurisy, aortic pathology, pulmonary embolism, intra- abdominal process, as well as others were considered. Medical Records Attestation: I reviewed the patient's medical records. Home Medications Current Medication List: was personally reviewed by me Laboratory Data Attestation: I reviewed the patient's lab results. Result diagrams: 01/01/19 11:14 01/01/19 11:14 Lab Results 01/01/19 01/01/19 Range/Units 11:14 11:14 WBC 5.90 (4.8-10.8) K/uL RBC 5.31 (4.7-6.1) M/uL Hgb 16.4 (14.0-18.0) g/dL Hct 45.7 (42-52) % MCV 86.1 (80-100) fL MCH 30.9 (25-34) pg MCHC 35.9 (32-36) g/dL RDW Std Deviation 39.5 (36.4-46.3) fL RDW Coeff of Sabina 12.5 (11.5-14.5) % Plt Count 211 (130-400) K/uL MPV 9.7 (7.4-10.4) fL Immature Gran % (Auto) 0.2 % Neut % (Auto) 56.5 % Lymph % (Auto) 28.0 % [place] % (Auto) 11.9 % Eos % (Auto) 3.1 % Baso % (Auto) 0.3 % Immature Gran # (Auto) 0.01 (0.00-0.02) K/uL Neut # (Auto) 3.34 (1.4-6.5) K/uL Lymph # (Auto) 1.65 (1.2-3.4) K/uL [place] # (Auto) 0.70 H (0.11-0.59) K/uL Eos # (Auto) 0.18 (0-0.5) K/uL Baso # (Auto) 0.02 (0-0.2) K/uL Sodium 139 (136-145) mmol/L Potassium 3.6 (3.5-5.1) mmol/L Chloride 108 H (98-107) mmol/L Carbon Dioxide 24 (21-32) mmol/L Anion Gap 7.0 (3-11) BUN 15 (7-18) mg/dl Creatinine 1.04 (0.6-1.4) mg/dl Est Cr Clr Drug Dosing 68.5 ml/min Est GFR ( Amer) 86.9 Est GFR (Non-Af Amer) 75.0 BUN/Creatinine Ratio 14.6 (10-20) Glucose 104 H (70-99) mg/dl Calcium 9.2 (8.5-10.1) mg/dl Total Bilirubin 1.0 (0.2-1) mg/dl AST 26 (15-37) U/L ALT 29 (12-78) U/L Alkaline Phosphatase 55 (45-117) U/L Troponin I < 0.015 (0-0.045) ng/ml Total Protein 7.6 (6.4-8.2) gm/dl Albumin 4.2 (3.4-5.0) gm/dl Globulin 3.4 (2.5-4.0) gm/dl Albumin/Globulin Ratio 1.2 (0.9-2) Lipase 124 (73-393) U/L Imaging Data Radiologist's Impression: Radiology results as stated below per my review and the radiologist's interpretation: CT angio chest PE protocol CT DOSE: 521.59 mGycm HISTORY: Dyspnea cp and sob TECHNIQUE: Multiaxial CT images of the chest were performed following the intravenous administration of contrast to evaluate the pulmonary arteries. Maximal intensity projection images were also obtained. A dose lowering technique was utilized adhering to the principles of ALARA. COMPARISON STUDY: None. FINDINGS: There is a normal caliber thoracic aorta with no evidence for dissection. There is no evidence for pulmonary embolus. No pleural effusions. No pneumothorax. The liver and spleen are unremarkable. No mediastinal or hilar lymphadenopathy. The central airways are patent. The lungs are clear. 6 mm nodular density right apex. Additional minimal scattered focal areas of subtle pleural thickening considered benign. Mild right apical fibrotic change. No significant mediastinal or hilar adenopathy. IMPRESSION: 1. Study is negative for pulmonary embolus. 2. Lungs are clear. 3. 6 mm linear nodule right pulmonary apex. Routine follow-up per Fleischner criteria. Please refer to below summary of Fleischner criteria recommendations for follow- up of incidental CT nodules (Ene Rosenthal, Guidelines for management of small pulmonary nodules detected on CT scans: A statement from the Fleischner Society , Radiology 237: [phone].) SOLID NODULES Solitary nodule size: <6 mm * low risk patients: no follow-up needed * high risk patients: optional CT at 12 months Solitary nodule size: 6-8 mm * low risk patients: follow-up at 6-12 months, then consider further follow-up at 18-24 months * high risk patients: initial follow-up CT at 6-12 months and then at 18-24 months if no change Solitary nodule size: >8 mm * either low or high risk patients - consider follow-up CT at 3 months, and/or CT-PET, and/or biopsy Multiple nodules size: <6 mm * low risk patients: no routine follow-up * high risk patients: optional CT at 12 months Multiple nodules size: 6-8 mm * low risk patients: follow-up at 3-6 months, then consider further follow-up at 18-24 months * high risk patients: follow-up at 3-6 months, then at 18-24 months if no change Multiple nodules size: >8 mm * low risk patients: follow-up at 3-6 months, then consider further follow-up at 18-24 months * high risk patients: follow-up at 3-6 months, then at 18-24 months if no change Note: newly detected indeterminate nodule in persons 35 years of age or older. * low risk patients: minimal or absent history of smoking and/or other known risk factors * high risk patients: history of smoking or of other known risk factors (e.g. first degree relative with lung cancer, or exposure to asbestos, radon, uranium) * if a nodule up to 8 mm is partly solid or is ground glass further follow-up is required after 24 months to exclude possible slow growing adenocarcinoma (SIMON) SUBSOLID NODULES Solitary pure ground-glass nodule * nodule size <6 mm - no CT follow-up required * nodule size >=6 mm - follow-up CT at 6-12 months, then every 2 years until 5 years Solitary part-solid nodule * nodule size <6 mm - no CT follow-up required * nodule size >=6 mm - follow-up CT at 3-6 months. If unchanged, and solid component remains <6 mm, then annual follow-up for 5 years Multiple subsolid nodules * nodule size <6 mm - follow-up CT at 3-6 months, consider further follow-up at 2 and 4 years if stable * nodule size >=6 mm - follow-up CT at 3-6 months, subsequent management based on the most suspicious nodule(s) The above report was generated using voice recognition software. It may contain grammatical, syntax or spelling errors. Electronically signed by: Ke Panchal M.D. 01/01/2019 12:15 PM XR chest 1V portable CLINICAL HISTORY: Chest Pain dyspnea COMPARISON STUDY: No previous studies for comparison. FINDINGS: The bones soft tissues and hemidiaphragms are normal. The cardiomediastinal silhouette is normal. The lungs are clear. The pulmonary vasculature is normal. IMPRESSION: Negative chest. The above report was generated using voice recognition software. It may contain grammatical, syntax or spelling errors. Electronically signed by: Ke Panchal M.D. 01/01/2019 11:30 AM ECG Data Attestation: I personally reviewed and interpreted this ECG as follows: Indication: chest pain Rate (beats per minute): 72 Rhythm: normal sinus Findings: + other (normal axis. ); no PVC Blood Pressure Blood Pressure Findings: Normal blood pressure Blood Pressure Disposition: did not require urgent referral MDM Narrative Patient is a 63-year-old male who presents the ER for intermittent chest pain over the past 24 hours. Initially he notes that sharp stabbing in nature and comes and goes and later notes that it is exertional. The story does change slightly as he notes recently it has been pleuritic worse with breathing and when he turns abruptly to the right he gets some as well. Patient does retract this slightly I note that this positional component is new. Labs were obtained and show no significant leukocytosis or anemia. BMP P with LFTs bilirubin and troponin was negative. Lipase is normal. X-ray and EKG were unremarkable. Patient was given nitro did have improvement of symptoms as well as aspirin. Patient was given IV morphine. Discussed with case with the hospitalist patient be observed for further workup. Impression & Plan Chest pain Discharge Plan Visit Data Chief Complaint: Chest Pain Stated Complaint: CHEST PAIN ED Provider: Bandar Jimenez Discharge Problem: Chest pain Patient Disposition: Being Evaluated by Hospitalist Forms Stand Alone Forms: Call Back Authorization, [facility] Prescriptions Prescriptions: No Action multivitamin Tablet 1 tab PO QAM RF: 0 ibuprofen [Advil] 200 mg Tablet 200 mg PO Q6H PRN (Reason: Pain) RF: 0 atorvastatin 10 mg Tablet 10 mg PO DAILY RF: 0 ranitidine HCl 300 mg Tablet 300 mg PO HS RF: 0 sildenafil 100 mg tablet 100 mg PO UD RF: 0 pantoprazole 40 mg Tablet,Delayed Release (Dr/Ec) 40 mg PO DAILY RF: 0 Referrals Referrals: Rohit Vora MD [Primary Care Provider] - Discharge Problem: Chest pain Qualifiers: Chest pain type: unspecified Qualified Code(s): R07.9 - Chest pain, unspecified The scribe's documentation has been prepared under my direction and personally reviewed by me in its entirety. I confirm that the note above accurately reflects all work, treatment, procedures, and medical decision making performed by me.
[2019-01-01] MEDS ORDERED: ACETAMINOPHEN 325 MG TAB PO PRN (17:25)
[2019-01-01] MEDS ORDERED: NITROGLYCERIN SL 0.4 MG/TAB TAB SL PRN (17:27)
[2019-01-02 07:20] LABS: Hemoglobin 16.1 g/dL (14.0-18.0); Mean Corpuscular Volume 87.1 fL (80-100); Mean Platelet Volume 9.4 fL (7.4-10.4); Platelet Count 188 K/uL (130-400); RDW Coefficient of Variation 12.6 % (11.5-14.5); Red Blood Count 5.28 M/uL (4.7-6.1); White Blood Count 5.39 K/uL (4.8-10.8)
[2019-01-02 08:01] LABS: BUN Creatinine Ratio 18.8 (10-20); Calcium 8.5 mg/dl (8.5-10.1); Creatinine Clr Calc Pharmacy 71.3 ml/min; Est GFR (African American) 91.1; Est GFR (Non-African American) 78.6; Potassium 3.6 mmol/L (3.5-5.1)
--- NOTE | 2019-01-02 08:35 | Hospitalist Progress Note ---
Date of Service January 02, 2019 Assessment & Plan (1) Chest pain: Pt presented to ER with c/o Intermittent CP started on 12/31/18. Described as sharp pain, non-radiating and lasts approx 5 minutes. Initially increased CP with movement and deep inspiration. Reports intermittent dizziness not as sociated with CP over the past day. SOB with walking up a flight of stairs or slight incline after approx 20 steps for several years. Risk factors:hyperlipidemia, FH CAD -In ER given ASA 324mg, nitro x 1 with some decreased CP and resolution of CP with morphine 4 mg. -Troponin x 3 negative, EKG-no significant changes. LDL- 87, Echo done on 01/02/19- EF 60-65%, Gd I diastolic dysfunction, No wall motion abnormalities. FOR EXERCISE STRESS ECHO TODAY -Continue with ASA, atorvastatin -Cardiology consulted- Appreciate inputs--> recommends exercise stress echo (2) GERD (gastroesophageal reflux disease): -continue PPI, H2 tamica (3) Pulmonary nodule: CT CHEST: 6 mm linear nodule right pulmonary apex -out patient follow up with repeat CT chest in 6-12 months recommended DVT Prophylaxis -Lovenox SQ Full Code Disposition Okay to discharge today evening if stress test is negative Follows with Dr Vora for routine care Subjective Patient is doing well. Denies any chest pain, shortness of breath, cough, nausea, vomiting, sweating, palpitations. Did have an episode of chest pain lasting for approximately 5 minutes today a a.m. not associated with any symptoms. For stress test today AM Physical Exam Vital Signs (Past 24 Hours): Last Vital Signs Temp 36.7 C 01/02/19 07:12 Pulse 63 01/02/19 07:12 Resp 16 01/02/19 07:12 BP 117/76 01/02/19 07:12 Pulse Ox 94 01/02/19 07:12 Physical Exam: GENERAL- AAOX3, No acute distress NECK- Supple, no JVD LUNGS- Air entry bilaterally equal. No rales, rhonchi, crackles, wheezes heard. HEART- Regular rate and rhythm. No murmurs ABDOMEN- Soft, non tender, non distended, Bowel sounds heard. EXTREMITIES- Good peripheral pulses, no edema (1) Chest pain Chest pain type: unspecified Qualified Code(s): R07.9 - Chest pain, unspecified
[2019-01-02] MEDS ORDERED: ASPIRIN 81 MG ECTAB PO SCH (09:00)
--- NOTE | 2019-01-02 10:27 | Cardiology Consultation ---
Date of Consultation January 02, 2019 Assessment & Plan (1) Atypical chest pain: Cardiac enzymes, ECG unremarkable. No dysrhythmias on telemetry. Recommend exercise stress echocardiography for further evaluation/for stratification. (2) Dyslipidemia: Continue statin therapy. (3) Aortic root dilation: Repeat echocardiogram in 1 year. History of Present Illness Reason for Consultation: Chest pain Requesting Physician: Dr. Katherin Orantes Attending Physician: Katherin Orantes History of Present Illness Patient seen and examined the bedside. Reports intermittent sharp stabbing left-sided chest discomfort since Saturday. Pain typically occurs at rest lasting less than 5 minutes. Mild associated shortness of breath. Denies chest heaviness or tightness. Denies any exertional chest discomfort or unusual shortness of breath. He has been able to perform activities of daily living as well as climb stairs without exertional symptoms. Currently pain-free. No dysrhythmias on telemetry. ECG within normal limits. Troponins are undetectable. Denies orthopnea, PND, lower external edema, claudication, palpitations, lightheadedness, dizziness, syncope, or near syncope. and daughter present at bedside. Voiced concern regarding family history. Patient offers no additional concerns/complaints at this time peer Allergies Allergy/AdvReac Type Severity Reaction Status Date / Time No Known Allergies Allergy Unverified 01/01/19 11:47 Home Medications Home Medications Medication Instructions Recorded Confirmed Type atorvastatin 10 mg PO DAILY 01/01/19 01/01/19 History ibuprofen [Advil] 200 mg PO Q6H PRN 01/01/19 01/01/19 History multivitamin 1 tab PO QAM 01/01/19 01/01/19 History pantoprazole 40 mg PO DAILY 01/01/19 01/01/19 History ranitidine HCl 300 mg PO HS 01/01/19 01/01/19 History sildenafil 100 mg PO UD 01/01/19 01/01/19 History Patient History Medical History Barretts esophagus (Chronic) GERD (gastroesophageal reflux disease) (Chronic) C. 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 Physical Exam Vital Signs (Past 24 Hours): Last Vital Signs Temp 36.7 C 01/02/19 07:12 Pulse 63 01/02/19 07:12 Resp 16 01/02/19 07:12 BP 117/76 01/02/19 07:12 Pulse Ox 94 01/02/19 07:12 Physical Exam: General: NAD, AAO x3, well nourished. HEENT: Normocephalic. Atraumatic. Conjunctiva pink, no scleral icterus. Neck: No carotid bruits, the carotid upstrokes are brisk. No JVD. No HJR Heart: Regular normal S-1 and S-2 no S-3 or S-4 gallop. No murmurs or rub appreciated. PMI is not displaced. No RV heave. Lungs: Clear bilateral without rales , rhonchi, or wheeze. Abdomen: Normal bowel sounds. Soft. Nontender. No masses or organomegaly. No abdominal bruits. Extremities: No clubbing, cyanosis, or edema. Pulses: radial=2/4, Dorsalis pedis =2/4, posterior tibial=2/4. Neuro: Cranial nerves grossly intact. No focal motor deficit. Results & Data Laboratory Results Laboratory Results - last 24 hr 01/01/19 01/01/19 01/01/19 11:14 11:14 17:35 WBC 5.90 RBC 5.31 Hgb 16.4 Hct 45.7 MCV 86.1 MCH 30.9 MCHC 35.9 RDW Std Deviation 39.5 RDW Coeff of Sabina 12.5 Plt Count 211 MPV 9.7 Immature Gran % (Auto) 0.2 Neut % (Auto) 56.5 Lymph % (Auto) 28.0 [place] % (Auto) 11.9 Eos % (Auto) 3.1 Baso % (Auto) 0.3 Immature Gran # (Auto) 0.01 Neut # (Auto) 3.34 Lymph # (Auto) 1.65 [place] # (Auto) 0.70 H Eos # (Auto) 0.18 Baso # (Auto) 0.02 Sodium 139 Potassium 3.6 Chloride 108 H Carbon Dioxide 24 Anion Gap 7.0 BUN 15 Creatinine 1.04 Est Cr Clr Drug Dosing 68.5 Est GFR ( Amer) 86.9 Est GFR (Non-Af Amer) 75.0 BUN/Creatinine Ratio 14.6 Glucose 104 H Calcium 9.2 Magnesium Total Bilirubin 1.0 AST 26 ALT 29 Alkaline Phosphatase 55 Troponin I < 0.015 < 0.015 Total Protein 7.6 Albumin 4.2 Globulin 3.4 Albumin/Globulin Ratio 1.2 Triglycerides Cholesterol LDL Cholesterol, Calc VLDL Cholesterol, Calc HDL Cholesterol Cholesterol/HDL Ratio Lipase 124 01/01/19 01/01/19 01/02/19 17:35 23:03 06:37 WBC 5.39 RBC 5.28 Hgb 16.1 Hct 46.0 MCV 87.1 MCH 30.5 MCHC 35.0 RDW Std Deviation 40.0 RDW Coeff of Sabina 12.6 Plt Count 188 MPV 9.4 Immature Gran % (Auto) Neut % (Auto) Lymph % (Auto) [place] % (Auto) Eos % (Auto) Baso % (Auto) Immature Gran # (Auto) Neut # (Auto) Lymph # (Auto) [place] # (Auto) Eos # (Auto) Baso # (Auto) Sodium Potassium Chloride Carbon Dioxide Anion Gap BUN Creatinine Est Cr Clr Drug Dosing Est GFR ( Amer) Est GFR (Non-Af Amer) BUN/Creatinine Ratio Glucose Calcium Magnesium 2.4 Total Bilirubin AST ALT Alkaline Phosphatase Troponin I < 0.015 Total Protein Albumin Globulin Albumin/Globulin Ratio Triglycerides Cholesterol LDL Cholesterol, Calc VLDL Cholesterol, Calc HDL Cholesterol Cholesterol/HDL Ratio Lipase 01/02/19 06:37 WBC RBC Hgb Hct MCV MCH MCHC RDW Std Deviation RDW Coeff of Sabina Plt Count MPV Immature Gran % (Auto) Neut % (Auto) Lymph % (Auto) [place] % (Auto) Eos % (Auto) Baso % (Auto) Immature Gran # (Auto) Neut # (Auto) Lymph # (Auto) [place] # (Auto) Eos # (Auto) Baso # (Auto) Sodium 139 Potassium 3.6 Chloride 106 Carbon Dioxide 28 Anion Gap 5.0 BUN 19 H Creatinine 1.00 Est Cr Clr Drug Dosing 71.3 Est GFR ( Amer) 91.1 Est GFR (Non-Af Amer) 78.6 BUN/Creatinine Ratio 18.8 Glucose 82 Calcium 8.5 Magnesium Total Bilirubin AST ALT Alkaline Phosphatase Troponin I Total Protein Albumin Globulin Albumin/Globulin Ratio Triglycerides 130 Cholesterol 149 LDL Cholesterol, Calc 87 VLDL Cholesterol, Calc 26 HDL Cholesterol 36 Cholesterol/HDL Ratio 4 Lipase Medications Administered atorvastatin 10 mg PO DAILY 01/01/19 [History Confirmed 01/01/19] ibuprofen [Advil] 200 mg PO Q6H PRN 01/01/19 [History Confirmed 01/01/19] multivitamin 1 tab PO QAM 01/01/19 [History Confirmed 01/01/19] pantoprazole 40 mg PO DAILY 01/01/19 [History Confirmed 01/01/19] ranitidine HCl 300 mg PO HS 01/01/19 [History Confirmed 01/01/19] sildenafil 100 mg PO UD 01/01/19 [History Confirmed 01/01/19] Home Medications Acetaminophen (Tylenol) 650 mg PO Q4H PRN PRN Reason: Pain or Fever Stop: 01/31/19 17:24 Last Admin: 01/01/19 19:31 Dose: 650 mg Documented by: Aspirin (Ecotrin Ectab) 81 mg PO QAM ADAM Stop: 02/01/19 08:59 Last Admin: 01/02/19 07:24 Dose: 81 mg Documented by: Ioversol (Optiray 320 125ml) 120 ml IV ONCE PRN PRN Reason: Interaction Checking Stop: 01/05/19 12:10 Last Admin: 01/01/19 12:11 Dose: 120 ml Documented by: Nitroglycerin (Nitrostat) 0.4 mg SL UD PRN PRN Reason: Chest Pain Stop: 01/31/19 17:26
[2019-01-02] MEDS ORDERED: PERFLUTREN LIPID MICROSPHERE (DEFINITY) IV ONE (11:48)
--- NOTE | 2019-01-02 12:33 | Discharge Summary ---
Date of Service January 02, 2019 Admission HPI Per Admitting Provider Pt is 63 y/o M with PMH GERD, Ruelas's esophagus, HLD presented to ER with c/o CP started yesterday. Pt states had onset of left anterior CP yesterday while sitting driving. 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 Pain is described as sharp and non- radiating and lasts approx 5 minutes. CP has been intermittent since yesterday and can occur with rest or walking. States increased CP with deep inspiration and with movement. Denies diaphoresis. Reports intermittent dizziness not associated with CP over the past day also. Pt reports SOB with walking up a flight of stairs or slight incline after approx 20 steps for several years, unsure if this has gotten worse. Pt reports night sweats for past several months. Denies weight loss. Pt states had a PEÑA last week and was taking ibuprofen 400mg twice a day. Hx worsening GERD symptoms a couple of weeks ago and ranitidine was added in addition to his protonix and pt reports no further indigestion. Denies fever/chills, diaphoresis, N/V/D/C, dizziness, syncope, vision changes, neck pain, orthopnea, palpitations, cough, sore throat, choking, otalgia, rhinorrhea, abdominal pain, paresthesias, weakness, extremity weakness, extremity edema, rashes, urinary symptoms. Pt denies any known CAD. FH CAD - brother AR age 52, sister AR in her 50's. In ER received ASA 324mg, nitro x 1 with some decreased CP and resolution of CP with morphine 4mg. Principal Diagnosis 1. Chest pain, acute ischemia ruled out Secondary diagnoses on discharge 1. GERD 2. Pulmonary nodule Discharge Exam GENERAL- AAOX3, No acute distress NECK- Supple, no JVD LUNGS- Air entry bilaterally equal. No rales, rhonchi, crackles, wheezes heard. HEART- Regular rate and rhythm. No murmurs ABDOMEN- Soft, non tender, non distended, Bowel sounds heard. EXTREMITIES- Good peripheral pulses, no edema Discharge Data Allergies Allergy/AdvReac Type Severity Reaction Status Date / Time No Known Allergies Allergy Unverified 01/01/19 11:47 Consultations 01/01/19 13:34 ED Decision to Admit Stat 01/01/19 17:25 Consult Cardiology Routine Ordered Studies 01/01/19 11:41 CT angio chest PE protocol Stat Hospital Course (1) Chest pain: Pt presented to ER with c/o Intermittent CP started on 12/31/18. Described as sharp pain, non-radiating and lasts approx 5 minutes. Initially increased CP with movement and deep inspiration. Reports intermittent dizziness not associated with CP over the past day. SOB with walking up a flight of stairs or slight incline after approx 20 steps for several years. Risk factors:hyperlipidemia, FH CAD -In ER given ASA 324mg, nitro x 1 with some decreased CP and resolution of CP with morphine 4 mg. -Troponin x 3 negative, EKG-no significant changes. LDL- 87, Echo done on 01/02/19- EF 60-65%, Gd I diastolic dysfunction, No wall motion abnormalities. FOR EXERCISE STRESS ECHO TODAY -Continue with ASA, atorvastatin -Cardiology consulted- Appreciate inputs--> recommends exercise stress echo (2) GERD (gastroesophageal reflux disease): -continue PPI, H2 tamica (3) Pulmonary nodule: CT CHEST: 6 mm linear nodule right pulmonary apex -out patient follow up with repeat CT chest in 6-12 months recommended DVT Prophylaxis -Lovenox SQ Full Code Disposition Okay to discharge today evening if stress test is negative Follows with Dr Vora for routine care Total Time Total Time Spent Total Time Spent (In Minutes): 25 minutes Total Time Includes: Examination of the Patient, Discharge Planning, Medication Reconciliation and Communication With Other Providers Discharge Plan Discharge Items Patient Disposition: Home - Self-Care Reason For Visit: CHEST PAIN Discharge Diagnosis: Chest pain, acute ischemia ruled out Discharge Goals: Diagnostic testing Activity: Resume your previous activity Non-emergency contact: Primary Care Provider Call non-emergency contact if: your symptoms worsen Follow-up/Referrals: Rohit Vora MD [Primary Care Provider] - 01/07/19 2:00 pm Diet: Regular Addtl Provider Instructions: You were admitted with chest pain. You had a stress test which was negative for ischemia. MEDICATION CHANGES No changes made to your medications You did have an incidental finding of 6 mm nodule in right lung. You will need CT scan chest in 6-12 months which will be ordered by your PCP Prescriptions: Continued multivitamin Tablet 1 tab PO QAM RF: 0 ibuprofen [Advil] 200 mg Tablet 200 mg PO Q6H PRN (Reason: Pain) RF: 0 atorvastatin 10 mg Tablet 10 mg PO DAILY RF: 0 ranitidine HCl 300 mg Tablet 300 mg PO HS RF: 0 sildenafil 100 mg tablet 100 mg PO UD RF: 0 pantoprazole 40 mg Tablet,Delayed Release (Dr/Ec) 40 mg PO DAILY RF: 0 Stand-Alone Forms: Call Back Authorization, [facility] Discharge Orders: Discharge Order (Routine); Ordered 01/02/19 Ordered By: Katherin Orantes Admission Data Admit Date/Time: 01/01/19 14:34 Attending Provider: Katherin Orantes Admit Provider: Jesus Dunn Primary Care Provider: Rohit Vora Other Providers: Jesus Dunn ; Tobias Arizmendi Service: Telemetry Medical Other Pending Studies at Discharge: No
== END 2019-01-02 12:55 | disposition home or self-care (01) ==
LOC: MERGE 10:54 → ED 10:54 → 2N 10:54

== ENCOUNTER 2022-08-08 21:21 | Inpatient (IN) ==
--- NOTE | 2022-08-08 21:49 | Emergency Department Note ---
Impression & Plan Pneumonia, Abdominal pain, Fever ED Provider Note NAME: PHUC FLORES AGE: 67 SEX: M : 1955 ARRIVES VIA: Walk-In INFORMANT: Patient, ED PROVIDER(S): Alejandro Tian MD Chief Complaint: Cough and abdominal pain HPI: Patient presents primarily due to concern for abdominal pain that is epigastric in nature and worse with palpation. Patient states that this began ever since his abdomen was palpated at an outpatient visit with Dr. Vora several weeks ago. Patient denies any falls or trauma. No nausea or vomiting. The patient is also noticed a productive cough with greenish sputum. Patient did present febrile. The patient denies any chest pains or shortness of breath. No associated nausea or vomiting. Patient did not take anything for symptoms at home. Patient not noticing bulges or masses. No hematuria. The patient has had a recent bowel movement denies any blood in the stools. ROS: See HPI for pertinent positives and negatives. A total of 10 systems were reviewed and otherwise negative. Past medical history: See below Surgical history: See below Social history: See below Physical Exam: GENERAL: NAD, wearing a mask, non-toxic. EYE EXAM: Normal conjunctiva. PERRL, no anisocoria and EOM's grossly intact w/o pain. NECK: Supple, no nuchal rigidity, no adenopathy, non-tender. No signs of meningismus. FROM of the neck with good chin to chest and neck extension. No stridor. LUNGS: Clear to auscultation. Normal chest wall mechanics. HEART: Tachycardic and regular, no MRG. ABDOMEN: Abdomen soft, epigastric pain without lower abdominal pain, normo- active bowel sounds, no masses, no rebound or guarding. BACK: No CVA TTP. SKIN: No rashes and no bruising. UPPER EXTREMITIES: Upper extremities are grossly normal. LOWER EXTREMITIES: Grossly normal, no edema. NEURO EXAM: A&O x3, cranial nerves II-XII grossly intact, normal speech, moves all 4 extremities. Differential diagnoses: Appendicitis, testicular torsion, infections, diverticulitis, UTI, obstruction, mesenteric ischemia, aortic pathology, inflammatory bowel disease, renal colic, PUD, pancreatitis, biliary pathology, hernia, volvulus, constipation, as well as other pathologies. Course: Patient was seen and evaluated the bedside. Full history physical exam was performed. Imaging Studies: See Below Cardiac monitoring: An order was placed for continuous cardiac monitoring. The monitor shows a rate of 78 with sinus rhythm. MDM: Patient was seen due to concern for abdominal pain and cough in the setting of tachycardia and fever. Blood work was obtained and the patient was ordered IV fluids and antipyretics. CT abdomen pelvis ordered along with a chest x-ray. COVID swab also obtained. The patient's heart rate did improve. The patient had a normal white count H&H and platelet count. The patient's kidney function was unremarkable. The patient had a negative COVID test. Patient's chest film appears to have a right lower lobe pneumonia. The patient was ordered antibiotics. CT abdomen pelvis does not show any acute infectious or inflammatory findings. There is some mild small bowel distention but without any evidence of obstruction. Patient was ordered additional IV fluids. The patient was not ordered 30 cc/kg usual bolus empirically it was is unsure as to the cause of the patient's illness. The patient was ordered an additional IV fluid bolus after seeing the patient's chest x-ray. I did speak the on-call hospitalist Dr. Gutierrez and the patient was admitted to the medicine service. Past Med/Surg History Medical History (Updated 08/09/22 @ 17:51 by Alejandro Tian MD) Barretts esophagus C. difficile colitis GERD (gastroesophageal reflux disease) Surgical History History of appendectomy Family History Brother Coronary heart disease Sister Coronary heart disease Father Prostate cancer Social History Smoking Status: Never smoker Hx Alcohol Use: No Hx Substance Use: No Preferred Language: [place] Communication Ability: Effective Physical Therapy Professor Required: No Beliefs That Will Affect Care: None Current Living Situation: Spouse Feels Safe at Home: Yes Safety Concerns: Feels Safe At This Time Assistive Devices: Glasses Allergies Allergies Allergy/AdvReac Type Severity Reaction Status Date / Time No Known Allergies Allergy Verified 08/08/22 22:28 Home Meds Home Medications Medication Instructions Recorded Confirmed atorvastatin 10 mg tablet 10 mg PO QAM 01/01/19 08/08/22 sildenafil 100 mg tablet 100 mg PO DIRECTED PRN Sexual 01/01/19 08/08/22 Activity fluticasone propionate 50 2 spray intranasal DAILY PRN 08/08/22 08/08/22 mcg/actuation nasal Congestion spray,suspension omeprazole 40 mg capsule,delayed 40 mg PO DAILYBB 08/08/22 08/08/22 release Results & Data (ED) Vital Signs Vital Signs - 24 hr 08/08/22 21:30 08/08/22 22:21 08/08/22 22:23 Temperature 38.1 C H Temperature Source Temporal Artery Scan Pulse Rate 120 H 101 H Pulse Rate [Apical] 101 H Respiratory Rate 18 16 19 Respiratory Effort / Characteristics Non-Labored Spontaneous Non-Labored Spontaneous Respiratory Depth Normal Normal Respiratory Pattern Regular Blood Pressure 122/76 Blood Pressure [Left Arm] 112/65 Blood Pressure Mean 91 Blood Pressure Mean [Left Arm] 80 Blood Pressure Position Sitting Pulse Oximetry 93 93 93 Oxygen Delivery Method Room Air Room Air Room Air Sepsis Recent Fever Within 48 Hours Yes Sepsis New/Unexplained Change in Mental Status No Sepsis Action Taken by Nursing No Action Required Home Medications Current Medication List: was personally reviewed by me Laboratory Data Attestation: I reviewed the patient's lab results. Result diagrams: 08/09/22 06:23 08/09/22 06:23 Lab Results 08/08/22 08/08/22 08/08/22 Range/Units 22:12 22:12 22:12 WBC 9.99 (4.8-10.8) K/ul RBC 5.14 (4.63-6.08) M/uL Hgb 15.5 (14.0-18.0) g/dl POC Hgb (14.0-18.0) g/dl Hct 44.5 (40.1-51.0) % POC Hct (42-52) % MCV 86.6 (80.0-100.0) fL MCH 30.2 (25.0-34.0) pg MCHC 34.8 (32.0-36.0) g/dL RDW Std Deviation 39.0 (36.4-46.3) fL RDW Coeff of Sabina 12.2 (11.5-14.5) % Plt Count 234 (130-400) K/uL MPV 9.4 (9.4-12.4) fL Immature Gran % (Auto) 0.3 % Neut % (Auto) 77.9 % Lymph % (Auto) 8.2 % [place] % (Auto) 13.0 % Eos % (Auto) 0.3 % Baso % (Auto) 0.3 % Neut # (Auto) 7.78 H (1.4-6.5) K/uL Lymph # (Auto) 0.82 L (1.2-3.4) K/uL [place] # (Auto) 1.30 H (0.24-0.82) K/uL Eos # (Auto) 0.03 (0-0.50) K/uL Baso # (Auto) 0.03 (0-0.2) K/uL Immature Gran # (Auto) 0.03 H (0.00-0.02) K/uL POC Sodium (135-144) mmol/L Sodium 138 (136-145) mmol/L POC Potassium (3.3-5.0) mmol/L Potassium 3.5 (3.5-5.1) mmol/L POC Chloride (101-112) mmol/L Chloride 104 (98-107) mmol/L Carbon Dioxide 26 (21-32) mmol/L POC Total CO2 (24-31) mmol/L Anion Gap 8 (3-11) POC Anion Gap (16-25) mmol/L POC BUN (7-18) mg/dl BUN 18 (6-23) mg/dl Creatinine 1.16 (0.6-1.4) mg/dl POC Creatinine (0.6-1.3) mg/dl Est Cr Clr Drug Dosing 58.1 ml/min Est GFR ( Amer) 74.1 ml/min Est GFR (Non-Af Amer) 63.9 ml/min BUN/Creatinine Ratio 15.5 (10-20) Glucose 119 H (70-99(Fasting)) mg/dl POC Glucose (other) (70-99) mg/dl Estimat Average Glucose mg/dl Hemoglobin A1c (4.5-5.6) % Calcium 9.1 (8.5-10.1) mg/dl POC Ioniz Calcium Arben (1.12-1.32) mmol/l Magnesium (1.7-2.4) mg/dl Total Bilirubin 0.9 (0.2-1.0) mg/dl AST 32 (13-39) U/L ALT 18 (7-52) U/L Alkaline Phosphatase 58 (34-104) U/L Total Protein 7.4 (6.0-8.3) gm/dl Albumin 4.5 (3.4-5.0) gm/dl Globulin 2.9 (2.5-4.0) gm/dl Albumin/Globulin Ratio 1.6 (0.9-2) Lipase 14 (11-82) U/L Procalcitonin (0-0.5) ng/ml SARS-CoV-2, RNA, NAAT NEGATIVE (NEGATIVE) 08/08/22 08/08/22 08/08/22 Range/Units 22:12 22:12 22:12 WBC (4.8-10.8) K/ul RBC (4.63-6.08) M/uL Hgb (14.0-18.0) g/dl POC Hgb (14.0-18.0) g/dl Hct (40.1-51.0) % POC Hct (42-52) % MCV (80.0-100.0) fL MCH (25.0-34.0) pg MCHC (32.0-36.0) g/dL RDW Std Deviation (36.4-46.3) fL RDW Coeff of Sabina (11.5-14.5) % Plt Count (130-400) K/uL MPV (9.4-12.4) fL Immature Gran % (Auto) % Neut % (Auto) % Lymph % (Auto) % [place] % (Auto) % Eos % (Auto) % Baso % (Auto) % Neut # (Auto) (1.4-6.5) K/uL Lymph # (Auto) (1.2-3.4) K/uL [place] # (Auto) (0.24-0.82) K/uL Eos # (Auto) (0-0.50) K/uL Baso # (Auto) (0-0.2) K/uL Immature Gran # (Auto) (0.00-0.02) K/uL POC Sodium (135-144) mmol/L Sodium (136-145) mmol/L POC Potassium (3.3-5.0) mmol/L Potassium (3.5-5.1) mmol/L POC Chloride (101-112) mmol/L Chloride (98-107) mmol/L Carbon Dioxide (21-32) mmol/L POC Total CO2 (24-31) mmol/L Anion Gap (3-11) POC Anion Gap (16-25) mmol/L POC BUN (7-18) mg/dl BUN (6-23) mg/dl Creatinine (0.6-1.4) mg/dl POC Creatinine (0.6-1.3) mg/dl Est Cr Clr Drug Dosing ml/min Est GFR ( Amer) ml/min Est GFR (Non-Af Amer) ml/min BUN/Creatinine Ratio (10-20) Glucose (70-99(Fasting)) mg/dl POC Glucose (other) (70-99) mg/dl Estimat Average Glucose 108 mg/dl Hemoglobin A1c 5.4 (4.5-5.6) % Calcium (8.5-10.1) mg/dl POC Ioniz Calcium Arben (1.12-1.32) mmol/l Magnesium 2.0 (1.7-2.4) mg/dl Total Bilirubin (0.2-1.0) mg/dl AST (13-39) U/L ALT (7-52) U/L Alkaline Phosphatase (34-104) U/L Total Protein (6.0-8.3) gm/dl Albumin (3.4-5.0) gm/dl Globulin (2.5-4.0) gm/dl Albumin/Globulin Ratio (0.9-2) Lipase (11-82) U/L Procalcitonin < 0.05 (0-0.5) ng/ml SARS-CoV-2, RNA, NAAT (NEGATIVE) 08/08/22 Range/Units 22:29 WBC (4.8-10.8) K/ul RBC (4.63-6.08) M/uL Hgb (14.0-18.0) g/dl POC Hgb 15.3 (14.0-18.0) g/dl Hct (40.1-51.0) % POC Hct 45 (42-52) % MCV (80.0-100.0) fL MCH (25.0-34.0) pg MCHC (32.0-36.0) g/dL RDW Std Deviation (36.4-46.3) fL RDW Coeff of Sabina (11.5-14.5) % Plt Count (130-400) K/uL MPV (9.4-12.4) fL Immature Gran % (Auto) % Neut % (Auto) % Lymph % (Auto) % [place] % (Auto) % Eos % (Auto) % Baso % (Auto) % Neut # (Auto) (1.4-6.5) K/uL Lymph # (Auto) (1.2-3.4) K/uL [place] # (Auto) (0.24-0.82) K/uL Eos # (Auto) (0-0.50) K/uL Baso # (Auto) (0-0.2) K/uL Immature Gran # (Auto) (0.00-0.02) K/uL POC Sodium 140 (135-144) mmol/L Sodium (136-145) mmol/L POC Potassium 3.5 (3.3-5.0) mmol/L Potassium (3.5-5.1) mmol/L POC Chloride 104 (101-112) mmol/L Chloride (98-107) mmol/L Carbon Dioxide (21-32) mmol/L POC Total CO2 24 (24-31) mmol/L Anion Gap (3-11) POC Anion Gap 16.0 (16-25) mmol/L POC BUN 18 (7-18) mg/dl BUN (6-23) mg/dl Creatinine (0.6-1.4) mg/dl POC Creatinine 1.2 (0.6-1.3) mg/dl Est Cr Clr Drug Dosing ml/min Est GFR ( Amer) ml/min Est GFR (Non-Af Amer) ml/min BUN/Creatinine Ratio (10-20) Glucose (70-99(Fasting)) mg/dl POC Glucose (other) 122 H (70-99) mg/dl Estimat Average Glucose mg/dl Hemoglobin A1c (4.5-5.6) % Calcium (8.5-10.1) mg/dl POC Ioniz Calcium Arben 1.12 (1.12-1.32) mmol/l Magnesium (1.7-2.4) mg/dl Total Bilirubin (0.2-1.0) mg/dl AST (13-39) U/L ALT (7-52) U/L Alkaline Phosphatase (34-104) U/L Total Protein (6.0-8.3) gm/dl Albumin (3.4-5.0) gm/dl Globulin (2.5-4.0) gm/dl Albumin/Globulin Ratio (0.9-2) Lipase (11-82) U/L Procalcitonin (0-0.5) ng/ml SARS-CoV-2, RNA, NAAT (NEGATIVE) Administered Medications Acetaminophen (Acetaminophen 325 Mg Tab) 650 mg PO Q4H PRN PRN Reason: Pain or Fever Stop: 09/08/22 04:26 Last Admin: 08/09/22 06:09 Dose: 650 mg Documented By: GELACIO Amoxicillin/Clavulanate Potassium (Amoxicillin/Clavulanate 875 Mg Tab) [facility] Stop: 08/16/22 07:59 Last Admin: 08/09/22 16:41 Dose: 1 tab Documented By: Admin: 08/09/22 08:29 Dose: 1 tab Documented By: HE Atorvastatin Calcium (Atorvastatin 10 Mg Tab) 10 mg PO [facility] Stop: 09/08/22 08:59 Last Admin: 08/09/22 08:29 Dose: 10 mg Documented By: HE Benzonatate (Benzonatate 100 Mg Capsule) 100 mg PO TID PRN PRN Reason: Cough Stop: 09/08/22 04:51 Last Admin: 08/09/22 06:09 Dose: 100 mg Documented By: GELACIO Enoxaparin Sodium (Enoxaparin Inj 40 Mg/0.4 Ml Syr) 40 mg SQ [facility] Stop: 09/08/22 08:59 Last Admin: 08/09/22 08:29 Dose: 40 mg Documented By: HE Guaifenesin (Guaifenesin Sugar Free 200 Mg/10 Ml Udc) 200 mg PO Q6H PRN PRN Reason: Cough Stop: 09/08/22 04:51 Last Admin: 08/09/22 06:09 Dose: 200 mg Documented By: GELACIO Oseltamivir Phosphate (Oseltamivir Phosphate 75 Mg Cap) 75 mg PO BID [facility]; Protocol Stop: 08/14/22 12:14 Last Admin: 08/09/22 12:58 Dose: 75 mg Documented By: HE Discontinued Medications Azithromycin (Azithromycin 250 Mg Tab) 500 mg PO NOW ONE Stop: 08/09/22 00:37 Last Admin: 08/09/22 03:01 Dose: Not Given Documented By: MED Sodium Chloride (Nss 1000ml) 1,000 mls @ 999 mls/hr IV .Q1H1M STA Stop: 08/08/22 22:54 Last Infusion: 08/08/22 23:06 Dose: 0 mls/hr Documented By: striker off: 08/08/22 22:11 Dose: 999 mls/hr Documented By: MED Acetaminophen (Ofirmev) 1,000 mg in 100 mls @ 400 mls/hr IV NOW STA Stop: 08/08/22 22:08 Last Infusion: 08/08/22 23:06 Dose: 0 mls/hr Documented By: striker off: 08/08/22 22:14 Dose: 400 mls/hr Documented By: MED Ceftriaxone Sodium (Rocephin) 2,000 mg in 70 mls @ 140 mls/hr IV NOW STA Stop: 08/09/22 01:05 Last Infusion: 08/09/22 02:57 Dose: 0 mls/hr Documented By: striker off: 08/09/22 01:41 Dose: 140 mls/hr Documented By: LRS Sodium Chloride (Nss 1000ml) 1,000 mls @ 999 mls/hr IV .Q1H1M ONE Stop: 08/09/22 01:36 Last Infusion: 08/09/22 02:57 Dose: 0 mls/hr Documented By: striker off: 08/09/22 01:40 Dose: 999 mls/hr Documented By: LRS Lactated Ringer's (Lr) 1,000 mls @ 80 mls/hr IV .[id number] STA Stop: 08/09/22 13:14 Last Infusion: 08/09/22 15:50 Dose: 0 mls/hr Documented By: Admin: 08/09/22 03:17 Dose: 80 mls/hr Documented By: JOE Ampicillin Sodium/Sulbactam Sodium 3,000 mg/ Sodium Chloride 108 mls @ 200 mls/hr IV NOW STA Stop: 08/09/22 02:36 Last Infusion: 08/09/22 03:23 Dose: 0 mls/hr Documented By: Admin: 08/09/22 02:40 Dose: 200 mls/hr Documented By: JOE Pantoprazole Sodium 40 mg/ (Syringe) 10 mls @ 5 mls/min IV NOW STA Stop: 08/09/22 02:04 Last Admin: 08/09/22 02:40 Dose: 5 mls/min Documented By: JOE Ioversol (Optiray 350 100ml) 100 ml IV ONCE ONE Stop: 08/08/22 22:52 Last Admin: 08/08/22 22:51 Dose: 81 ml Documented By: DOMO Ondansetron HCl (Ondansetron Inj 2 Mg/Ml 2 Ml Vial) 4 mg IV NOW STA Stop: 08/08/22 21:55 Last Admin: 08/08/22 22:11 Dose: 4 mg Documented By: YOUNG Potassium Chloride (Potassium Chloride Crtab 20 Meq Tabcr) 40 meq PO ONE ONE Stop: 08/09/22 08:40 Last Admin: 08/09/22 09:07 Dose: 40 meq Documented By: HE Imaging Data Radiologist's Impression: Abdomen/Pelvis CT 08/08/22 21:54 CT SCAN OF THE ABDOMEN AND PELVIS WITH IV CONTRAST CLINICAL HISTORY: Generalized abdominal pain. Fever. COMPARISON STUDY: Abdominal CT dated 12/26/2016. TECHNIQUE: Following the IV administration of 81 cc of Optiray 350, CT scan of the abdomen and pelvis is performed from the lung bases to the proximal femora. Images are reviewed in the axial, sagittal, and coronal planes. IV contrast was administered without complication. A dose lowering technique was utilized adhering to the principles of ALARA. CT DOSE: 406.57 mGy.cm FINDINGS: Lung bases: The heart is normal in size and without pericardial effusion. There is minimal patchy groundglass consolidation in the right middle lobe. The lung bases are otherwise clear. There is a small hiatal hernia. Liver: The contrast-enhanced liver is normal in size, contour, and attenuation. There is no intrahepatic biliary ductal dilatation. The hepatic veins and portal veins are patent. Gallbladder: Unremarkable. Spleen: Normal in size and attenuation. Pancreas: Unremarkable. Adrenal glands: Unremarkable. Kidneys: The contrast enhanced kidneys are normal in size and without hydronephrosis. The kidneys enhance symmetrically. Abdominal vasculature: The abdominal aorta is normal in course and caliber. Bowel: There is mild colonic diverticulosis without CT evidence of acute diverticulitis. Fecal retention is noted throughout the colon. The appendix is not identified and reported surgically absent. Peritoneum: There is no intraperitoneal free air or abdominal ascites. There is a fat-containing umbilical hernia. Lymphadenopathy: None. Pelvic viscera: The prostate gland is enlarged and heterogeneous noticing median lobe hypertrophy. The bladder wall is mildly thickened and trabeculated indicating chronic outlet obstruction. Skeletal structures: The skeletal structures are osteopenic. There is moderate lumbosacral spondylosis. No lytic or blastic lesions are seen. IMPRESSION: 1. There is minimal patchy groundglass consolidation in the right middle lobe, typical for an infectious/inflammatory pneumonitis. 2. No acute infectious or inflammatory findings are identified in the abdomen or pelvis. 3. Colonic diverticulosis without CT evidence of acute diverticulitis. 4. Additional findings as above. ACT 112: Negative or not required by law. Electronically signed by: Nicolás Damico M.D. 08/09/2022 7:25 AM Chest X-Ray 08/08/22 23:19 SINGLE VIEW CHEST CLINICAL HISTORY: Cough and fever. FINDINGS: An AP, portable, upright chest radiograph is compared to study dated 04/23/2021 and correlated with chest CT dated 01/01/2019. The cardiomediastinal silhouette is top normal for projection noting atherosclerotic calcification of the thoracic aorta. Emphysema and chronic interstitial thickening is similar to previous. An accessory azygos fissure is incidentally noted. There is bibasilar scarring/atelectasis. No airspace consolidation or large pleural effusion is identified. No pneumothorax is seen. The skeletal structures are osteopenic. The bony thorax is grossly intact. IMPRESSION: Emphysematous change with no acute cardiopulmonary abnormality. ACT 112: Negative or not required by law. Electronically signed by: Nicolás Damico M.D. 08/09/2022 7:07 AM Discharge Plan Visit Data Chief Complaint: Abdominal Pain Stated Complaint: STOMACH HURT,VOMITTING ED Provider: Alejandro Tian Discharge Problem: Pneumonia, Abdominal pain, Fever Patient Disposition: Admitted As Inpatient Discharge Instructions Interventions: ED Discharge Assessment Last Done: 08/09/22 04:06
[2022-08-08] MEDS ORDERED: SODIUM CHLORIDE 0.9% 1000ML 1,000 ML IV STA (21:54)
[2022-08-08] MEDS ORDERED: ONDANSETRON INJ 2 MG/ML 2 ML VIAL IV STA (21:54)
[2022-08-08] MEDS ORDERED: ACETAMINOPHEN 1,000 MG/100 ML VIAL IV STA (21:54)
[2022-08-08 22:35] LABS: Basophils # (auto) 0.03 K/uL (0-0.2); Basophils % (auto) 0.3 %; Eosinophils # (auto) 0.03 K/uL (0-0.50); Eosinophils % (auto) 0.3 %; Hematocrit (blood only) 44.5 % (40.1-51.0); Hemoglobin 15.5 g/dl (14.0-18.0); Immature Granulocytes # (auto) 0.03 K/uL (0.00-0.02); Immature Granulocytes % (auto) 0.3 %; Lymphocytes # (auto) 0.82 K/uL (1.2-3.4); Lymphocytes % (auto) 8.2 %; Mean Corpuscular Hemoglobin 30.2 pg (25.0-34.0); Mean Corpuscular Hgb Conc 34.8 g/dL (32.0-36.0); Mean Corpuscular Volume 86.6 fL (80.0-100.0); Mean Platelet Volume 9.4 fL (9.4-12.4); Neutrophils # (auto) 7.78 K/uL (1.4-6.5); Neutrophils % (auto) 77.9 %; Platelet Count 234 K/uL (130-400); RDW Coefficient of Variation 12.2 % (11.5-14.5); Red Blood Count 5.14 M/uL (4.63-6.08); White Blood Count 9.99 K/ul (4.8-10.8)
[2022-08-08 22:42] LABS: iSTAT Creatinine 1.2 mg/dl (0.6-1.3); iSTAT Hemoglobin 15.3 g/dl (14.0-18.0); iSTAT Ionized Calcium 1.12 mmol/l (1.12-1.32); iSTAT Potassium 3.5 mmol/L (3.3-5.0)
[2022-08-08] MEDS ORDERED: OPTIRAY 350 100ml IV ONE (22:51)
[2022-08-08 22:54] LABS: Albumin Globulin Ratio 1.6 (0.9-2); Albumin Level 4.5 gm/dl (3.4-5.0); BUN Creatinine Ratio 15.5 (10-20); Bilirubin,Total 0.9 mg/dl (0.2-1.0); Calcium 9.1 mg/dl (8.5-10.1); Creatinine Clr Calc Pharmacy 58.1 ml/min; Est GFR (African American) 74.1 ml/min; Est GFR (Non-African American) 63.9 ml/min; Globulin 2.9 gm/dl (2.5-4.0); Potassium 3.5 mmol/L (3.5-5.1); Total Protein 7.4 gm/dl (6.0-8.3)
--- NOTE | 2022-08-09 00:33 | History & Physical Report ---
Date of Service August 09, 2022 Assessment & Plan (1) Sepsis: Plan: Secondary to possible aspiration pneumonitis hx uncontrolled GERD symptoms, history of Ruelas's esophagus hyperlipidemia on statin Rx Hyperglycemia rule out DM Medical telemetry CS, Unasyn followed by Augmentin course Increase daily PPI dosing to twice daily GI consult if without improvement Check hemoglobin A1c DVT prophylaxis per Lovenox subcu Full code History of Present Illness Chief Complaint: Cough, shortness of breath Primary Care Provider: Dr. Vora History obtained from patient and records. Medical history significant for GERD, Ruelas's esophagus as per records, hyperlipidemia. Last confinement 2018 for chest pain attributed to GERD. 4 months ago, patient noted trouble swallowing and needing to cough to clear his throat. Intermittent symptoms of achy epigastric discomfort going to the chest. No fever, no chills, no unusual weight loss. Patient seen at PCPs office. Symptoms attributed to uncontrolled GERD. Benadryl added to patient's PPI. Famotidine added to patient's regimen if no better after 2 weeks as per note. Patient cannot recall instructions about famotidine. Outpatient stress test recommended for chest pain complaints. No inducible ischemia on last month's study. Persistent coughing and gagging over the last few months. Patient seen on follow-up PCP visit last week. Flonase trial initiated for possible reactive airway disease. Famotidine at night to be prescribed again although patient does not recall instructions. Persistent epigastric discomfort going to the chest with some shortness of breath. Patient got cold last night and noted junky cough symptoms. No nausea, no vomiting. Patient consulted ER. Ceftriaxone administered at the ER. 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 Allergies Allergy/AdvReac Type Severity Reaction Status Date / Time No Known Allergies Allergy Verified 08/08/22 22:28 Home Medications Medication Instructions Recorded Confirmed Type atorvastatin 10 mg tablet 10 mg PO QAM 01/01/19 08/08/22 History sildenafil 100 mg tablet 100 mg PO DIRECTED PRN Sexual 01/01/19 08/08/22 History Activity fluticasone propionate 50 2 spray intranasal DAILY PRN 08/08/22 08/08/22 History mcg/actuation nasal Congestion spray,suspension omeprazole 40 mg capsule,delayed 40 mg PO DAILYBB 08/08/22 08/08/22 History release Past Med/Surg History Medical History (Updated 08/09/22 @ 03:51 by Onesimo Gutierrez MD) Barretts esophagus C. difficile colitis GERD (gastroesophageal reflux disease) Surgical History History of appendectomy Family History Brother Coronary heart disease Sister Coronary heart disease Father Prostate cancer Social History Smoking Status: Never smoker Hx Alcohol Use: No Hx Substance Use: No Preferred Language: Iranian Communication Ability: Effective Mail Clerk Bills Required: No Beliefs That Will Affect Care: None Current Living Situation: Spouse Feels Safe at Home: Yes Safety Concerns: Feels Safe At This Time Assistive Devices: Glasses Review of Systems 2 Review of Systems: As per HPI, all other systems reviewed and negative Physical Exam Physical Exam: GENERAL: Comfortable, pleasant, no respiratory distress SKIN: normal color, warm HEENT: Partial alopecia, pink palpebral conjunctivae, no ptosis, dry buccal mucosa NECK : Supple, no tenderness CHEST : Decreased breath sounds, no tenderness HEART : Tachycardic, no obvious murmurs ABDOMEN: Some distention, epigastric tenderness EXTREMITIES : No LE swelling/tenderness, no other conspicuous deformities noted NEUROLOGIC : Coherent, no facial asymmetry, no other gross focality Results & Data Results & Data ([facility]) Vital Signs (Past 12 Hours) Vital Signs Temp Pulse Pulse Resp BP BP Pulse Ox 08/08/22 22:23 101 H 19 112/65 93 08/08/22 22:21 101 H 16 93 08/08/22 21:30 38.1 C H 120 H 18 122/76 93 O2 Del Method 08/08/22 22:23 Room Air 08/08/22 22:21 Room Air 08/08/22 21:30 Room Air Laboratory Results Laboratory Results WBC 9.99 K/ul (4.8-10.8) 08/08/22 22:12 RBC 5.14 M/uL (4.63-6.08) 08/08/22 22:12 Hgb 15.5 g/dl (14.0-18.0) 08/08/22 22:12 POC Hgb 15.3 g/dl (14.0-18.0) 08/08/22 22:29 Hct 44.5 % (40.1-51.0) 08/08/22 22:12 POC Hct 45 % (42-52) 08/08/22 22:29 MCV 86.6 fL (80.0-100.0) 08/08/22 22:12 MCH 30.2 pg (25.0-34.0) 08/08/22 22:12 MCHC 34.8 g/dL (32.0-36.0) 08/08/22 22:12 RDW Std Deviation 39.0 fL (36.4-46.3) 08/08/22 22:12 RDW Coeff of Sabina 12.2 % (11.5-14.5) 08/08/22 22:12 Plt Count 234 K/uL (130-400) 08/08/22 22:12 MPV 9.4 fL (9.4-12.4) 08/08/22 22:12 Immature Gran % (Auto) 0.3 % 08/08/22 22:12 Neut % (Auto) 77.9 % 08/08/22 22:12 Lymph % (Auto) 8.2 % 08/08/22 22:12 [place] % (Auto) 13.0 % 08/08/22 22:12 Eos % (Auto) 0.3 % 08/08/22 22:12 Baso % (Auto) 0.3 % 08/08/22 22:12 Neut # (Auto) 7.78 K/uL (1.4-6.5) H 08/08/22 22:12 Lymph # (Auto) 0.82 K/uL (1.2-3.4) L 08/08/22 22:12 [place] # (Auto) 1.30 K/uL (0.24-0.82) H 08/08/22 22:12 Eos # (Auto) 0.03 K/uL (0-0.50) 08/08/22 22:12 Baso # (Auto) 0.03 K/uL (0-0.2) 08/08/22 22:12 Immature Gran # (Auto) 0.03 K/uL (0.00-0.02) H 08/08/22 22:12 POC Sodium 140 mmol/L (135-144) 08/08/22 22: Sodium 138 mmol/L (136-145) 08/08/22 22:12 POC Potassium 3.5 mmol/L (3.3-5.0) 08/08/22 22: Potassium 3.5 mmol/L (3.5-5.1) 08/08/22 22:12 POC Chloride 104 mmol/L (101-112) 08/08/22 22: Chloride 104 mmol/L (98-107) 08/08/22 22:12 Carbon Dioxide 26 mmol/L (21-32) 08/08/22 22:12 POC Total CO2 24 mmol/L (24-31) 08/08/22: Anion Gap 8 (3-11) 08/08/22 22:12 POC Anion Gap 16.0 mmol/L (16-25) 08/08/22 22: POC BUN 18 mg/dl (7-18) 08/08/22: BUN 18 mg/dl (6-23) 08/08/22 22:12 Creatinine 1.16 mg/dl (0.6-1.4) 08/08/22 22: POC Creatinine 1.2 mg/dl (0.6-1.3) 08/08/22: Est Cr Clr Drug Dosing 58.1 ml/min 08/08/22 22:12 Est GFR ( Amer) 74.1 ml/min 08/08/22 22: Est GFR (Non-Af Amer) 63.9 ml/min 08/08/22 22:12 BUN/Creatinine Ratio 15.5 (10-20) 08/08/22 22:12 Glucose 119 mg/dl (70-99(Fasting)) H 08/08/22 22:12 POC Glucose (other) 122 mg/dl (70-99) H 08/08/22: Calcium 9.1 mg/dl (8.5-10.1) 08/08/22 22:12 POC Ioniz Calcium Arben 1.12 mmol/l (1.12-1.32) 08/08/22: Total Bilirubin 0.9 mg/dl (0.2-1.0) 08/08/22 22:12 AST 32 U/L (13-39) 08/08/22 22:12 ALT 18 U/L (7-52) 08/08/22 22:12 Alkaline Phosphatase 58 U/L (34-104) 08/08/22 22:12 Total Protein 7.4 gm/dl (6.0-8.3) 08/08/22 22:12 Albumin 4.5 gm/dl (3.4-5.0) 08/08/22 22:12 Globulin 2.9 gm/dl (2.5-4.0) 08/08/22 22:12 Albumin/Globulin Ratio 1.6 (0.9-2) 08/08/22 22:12 Lipase 14 U/L (11-82) 08/08/22 22:12 SARS-CoV-2, RNA, NAAT NEGATIVE (NEGATIVE) 08/08/22 22:[address] abdomen pelvis initial read: Normal cardiac size. Normal lung bases. Mild atherosclerotic disease of aortawith no aneurysm. Tinylow-attenuation structure within the left liver lobe measuring 3 mm, too small to characterize and likelybenign in the absence of known neoplasm. Otherwise normal liver, gallbladder and biliary system. Normal spleen, pancreas and bilateral adrenal glands. Normal bilateral kidneys. Minimal hiatal hernia, otherwise unremarkable stomach. Mild distention of some of the small bowel loops in the left upper quadrant measuring up to 2.5 cm, nonspecific. No focal thickening of the wall to suggest inflammatoryprocess. No obstruction. Diverticulosiswith no signs of diverticulitis. Nonvisualized appendixwith no inflammation to suggest appendicitis. Normal urinarybladder. Normal size of prostate gland. Degenerative disease of the spine, bilateral SI joints and hips Chest x-ray as per my interpretation atelectasis, elevated right hemidiaphragm
[2022-08-09] MEDS ORDERED: cefTRIAXone SODIUM 2,000 MG/70 ML BAG IV STA (00:36)
[2022-08-09] MEDS ORDERED: AZITHROMYCIN 250 MG TAB PO ONE (00:36)
[2022-08-09] MEDS ORDERED: SODIUM CHLORIDE 0.9% 1000ML 1,000 ML IV ONE (00:36)
[2022-08-09] MEDS ORDERED: LACTATED RINGER'S 1,000 ML IV STA (00:45)
[2022-08-09] MEDS ORDERED: PANTOprazole 40 MG in SYRINGE 0 ML IV STA (02:03)
[2022-08-09] MEDS ORDERED: AMPICILLIN/SULBACTAM SOD 3,000 MG in 0.9 % SODIUM CHLORIDE 100 ML IV STA (02:04)
[2022-08-09 03:26] LABS: Appearance Urine Clear (Clear); Bilirubin Urine Negative (Negative); Blood Urine Negative (Negative); Color Urine Yellow; Glucose Urine UA Negative (Negative); Ketones Urine Trace (Negative); Leukocyte Esterase Urine Negative (Negative); Nitrite Urine Negative (Negative); Protein Urine Negative (Negative); Specific Gravity Urine 1.042 (1.000-1.030); Urobilinogen Urine Negative (Negative)
[2022-08-09] MEDS ORDERED: PROMETHAZINE HCL 12.5 MG in SODIUM CHLORIDE 0.9% 50 ML IV PRN (04:27)
[2022-08-09] MEDS ORDERED: FLUTICASONE PROPIONATE NA SPR 16 GM BTL PRN (04:27)
[2022-08-09] MEDS ORDERED: traMADol HCL 50 MG TABLET PO PRN (04:27)
[2022-08-09] MEDS ORDERED: BENZONATATE 100 MG CAPSULE PO PRN (04:52)
[2022-08-09] MEDS ORDERED: guaiFENesin SUGAR FREE 200 MG/10 ML UDC PO PRN (04:52)
[2022-08-09] MEDS: ACETAMINOPHEN 325 MG TAB PO PRN ×2 (06:09→19:41)
[2022-08-09 06:37] LABS: Basophils # (auto) 0.02 K/uL (0-0.2); Basophils % (auto) 0.2 %; Eosinophils # (auto) 0.04 K/uL (0-0.50); Eosinophils % (auto) 0.4 %; Hematocrit (blood only) 40.7 % (40.1-51.0); Hemoglobin 14.3 g/dl (14.0-18.0); Immature Granulocytes # (auto) 0.05 K/uL (0.00-0.02); Immature Granulocytes % (auto) 0.5 %; Lymphocytes # (auto) 1.24 K/uL (1.2-3.4); Lymphocytes % (auto) 11.9 %; Mean Corpuscular Hemoglobin 30.2 pg (25.0-34.0); Mean Corpuscular Hgb Conc 35.1 g/dL (32.0-36.0); Mean Corpuscular Volume 85.9 fL (80.0-100.0); Mean Platelet Volume 9.4 fL (9.4-12.4); Monocytes # (auto) 1.52 K/uL (0.24-0.82); Monocytes % (auto) 14.6 %; Neutrophils # (auto) 7.52 K/uL (1.4-6.5); Neutrophils % (auto) 72.4 %; Platelet Count 208 K/uL (130-400); RDW Coefficient of Variation 12.6 % (11.5-14.5); RDW Standard Deviation 39.7 fL (36.4-46.3); Red Blood Count 4.74 M/uL (4.63-6.08); White Blood Count 10.39 K/ul (4.8-10.8)
[2022-08-09 07:01] LABS: Estimated Average Glucose 108 mg/dl; Hemoglobin A1C 5.4 % (4.5-5.6)
[2022-08-09 07:07] LABS: BUN Creatinine Ratio 13.7 (10-20); Calcium 8.1 mg/dl (8.5-10.1); Creatinine Clr Calc Pharmacy 71.8 ml/min; Est GFR (African American) 86.5 ml/min; Est GFR (Non-African American) 74.6 ml/min; Potassium 3.4 mmol/L (3.5-5.1)
--- NOTE | 2022-08-09 07:08 | XRay Report ---
SINGLE VIEW CHEST CLINICAL HISTORY: Cough and fever. FINDINGS: An AP, portable, upright chest radiograph is compared to study dated 04/23/2021 and correlate d with chest CT dated 01/01/2019. The cardiomediastinal silhouette is top normal for projection noting atherosclerotic calcification of the thoracic aorta. Emphysema and chronic interstitial thickening i s similar to previous. An accessory azygos fissure is incidentally noted. There is bibasilar scarring /atelectasis. No airspace consolidation or large pleural effusion is identified. No pneumothorax is s een. The skeletal structures are osteopenic. The bony thorax is grossly intact. IMPRESSION: Emphysematous change with no acute cardiopulmonary abnormality. ACT 112: Negative or not required by law. Electronically signed by: Nicolás Damico M.D. 08/09/2022 7:07 AM
[2022-08-09] MEDS ORDERED: LEVALBUTEROL 1.25MG/0.5ML NEB INH PRN (07:25)
[2022-08-09] MEDS ORDERED: IPRATROPIUM BROMIDE NEB SOLN 0.02% 2.5 ML VIAL INH PRN (07:25)
[2022-08-09] MEDS ORDERED: XOPENEX/ATROVENT 1.25mg/0.5MG NEB COMBO NEB PRN (07:25)
--- NOTE | 2022-08-09 07:26 | CT Scan Report ---
CT SCAN OF THE ABDOMEN AND PELVIS WITH IV CONTRAST CLINICAL HISTORY: Generalized abdominal pain. Fever. COMPARISON STUDY: Abdominal CT dated 12/26/2016. TECHNIQUE: Following the IV administration of 81 cc of Optiray 350, CT scan of the abdomen and pelvi s is performed from the lung bases to the proximal femora. Images are reviewed in the axial, sagittal , and coronal planes. IV contrast was administered without complication. A dose lowering technique wa s utilized adhering to the principles of ALARA. CT DOSE: 406.57 mGy.cm FINDINGS: Lung bases: The heart is normal in size and without pericardial effusion. There is minimal patchy kavitha undglass consolidation in the right middle lobe. The lung bases are otherwise clear. There is a small hiatal hernia. Liver: The contrast-enhanced liver is normal in size, contour, and attenuation. There is no intrahepa tic biliary ductal dilatation. The hepatic veins and portal veins are patent. Gallbladder: Unremarkable. Spleen: Normal in size and attenuation. Pancreas: Unremarkable. Adrenal glands: Unremarkable. Kidneys: The contrast enhanced kidneys are normal in size and without hydronephrosis. The kidneys enh ance symmetrically. Abdominal vasculature: The abdominal aorta is normal in course and caliber. Bowel: There is mild colonic diverticulosis without CT evidence of acute diverticulitis. Fecal retent ion is noted throughout the colon. The appendix is not identified and reported surgically absent. Peritoneum: There is no intraperitoneal free air or abdominal ascites. There is a fat-containing umbi lical hernia. Lymphadenopathy: None. Pelvic viscera: The prostate gland is enlarged and heterogeneous noticing median lobe hypertrophy. Th e bladder wall is mildly thickened and trabeculated indicating chronic outlet obstruction. Skeletal structures: The skeletal structures are osteopenic. There is moderate lumbosacral spondylosi s. No lytic or blastic lesions are seen. IMPRESSION: 1. There is minimal patchy groundglass consolidation in the right middle lobe, typical for an infecti ous/inflammatory pneumonitis. 2. No acute infectious or inflammatory findings are identified in the abdomen or pelvis. 3. Colonic diverticulosis without CT evidence of acute diverticulitis. 4. Additional findings as above. ACT 112: Negative or not required by law. Electronically signed by: Nicolás Damico M.D. 08/09/2022 7:25 AM
[2022-08-09] MEDS: AMOXICILLIN/CLAVULANATE 875 MG TAB PO SCH ×2 (08:29→16:41)
[2022-08-09] MEDS: ENOXAPARIN INJ 40 MG/0.4 ML SYR SQ SCH (08:29)
[2022-08-09] MEDS: ATORVASTATIN 10 MG TAB PO SCH (08:29)
[2022-08-09] MEDS ORDERED: POTASSIUM CHLORIDE CRTAB 20 MEQ TABCR PO ONE (08:39)
[2022-08-09 10:25] LABS: Adenovirus PCR Not Detected (NotDetected); Bordetella parapertussis PCR Not Detected (NotDetected); Bordetella pertussis PCR Not Detected (NotDetected); Chlamydia pneumoniae PCR Not Detected (NotDetected); Coronavirus 229E PCR Not Detected (NotDetected); Coronavirus CoV-2 (COVID19)PCR Not Detected (NotDetected); Coronavirus HKU1 PCR Not Detected (NotDetected); Coronavirus NL63 PCR Not Detected (NotDetected); Coronavirus OC43PCR Not Detected (NotDetected); Human Metapneumovirus PCR Not Detected (NotDetected); Influenza B PCR Not Detected (NotDetected); Mycoplasma pneumoniae PCR Not Detected (NotDetected); Parainfluenza Virus 1 PCR Not Detected (NotDetected); Parainfluenza Virus 2 PCR Not Detected (NotDetected); Parainfluenza Virus 3 PCR Not Detected (NotDetected); Parainfluenza Virus 4 PCR Not Detected (NotDetected); Respiratory Syncytial VirusPCR Not Detected (NotDetected); Rhinovirus/Enterovirus PCR Not Detected (NotDetected)
[2022-08-09 10:35] LABS: Influenza A (H1 2009) PCR DETECTED (NotDetected)
--- NOTE | 2022-08-09 11:40 | Fluoroscopy Report ---
FL barium swallow CLINICAL HISTORY: h/o uncontrolled reflux COMPARISON STUDY: None. FLUOROSCOPY TIME: 1.5 minutes. 16 fluoroscopic spot images and a cine loop were submitted. FINDINGS: The esophagus is normal and course and caliber. There is mild esophageal dysmotility. No hi atus hernia. No gastroesophageal reflux demonstrate during the examination. The contours of the hypop harynx are within normal limits. The barium tablet passed without difficulty. IMPRESSION: Mild esophageal dysmotility. No gastroesophageal reflux demonstrated during the examinat ion. ACT 112: Negative or not required by law. Electronically signed by: Juan Peck M.D. 08/09/2022 11:38 AM
[2022-08-09] MEDS: OSELTAMIVIR PHOSPHATE 75 MG CAP PO SCH ×2 (12:58→21:02)
--- NOTE | 2022-08-09 14:40 | Hospitalist Progress Note ---
Date of Service August 09, 2022 Assessment & Plan (1) Sepsis: Plan: Influenza A H1 Possible aspiration pneumonitis --CT:minimal patchy groundglass consolidation in the right middle lobe, typical for an infectious/inflammatory pneumonitis. --CXR:Emphysematous change with no acute cardiopulmonary abnormality. -- Procalcitonin less than 0.05 --Blood cultures pending -- Continue Augmentin Started on Tamiflu as well Saturating well on room air Isolation precautions Esophageal Dysmotility: Chronic Epigastric Pain -Barium Swallow:Mild esophageal dysmotility. No gastroesophageal reflux demonstrated during the examination. --CT ABD: No acute infectious or inflammatory findings are identified in the abdomen or pelvis. Colonic diverticulosis without CT evidence of acute diverticulitis. -Aspiration Precautions -Appreciate Speech Therapy help -Needs follow up with GI upon discharge H/O uncontrolled GERD H/O Ruelas's esophagus Increased PPI to twice daily Started on Pepcid at bedtime Plan for EGD in August as per patient Hypokalemia Replace electrolytes as needed Monitor Hyperlipidemia on statin Hyperglycemia HbA1C: 5.4 DVT Px: Lovenox SQ Code Status Full code Admission and Anticipated Discharge Date Admission Date: August 09, 2022 Subjective Patient is seen and examined at bedside Reports cough with yellowish expectoration Also reports chronic epigastric pain Had barium swallow study today this morning Denies any chest pain, dizziness, nausea, diarrhea Offers no other complaints Review of Systems Review of Systems: All systems reviewed & are unremarkable except as noted in Subjective Physical Exam Physical Exam: Physical Exam: Vitals signs as noted above General Appearance:Moderately built and nourished, no apparent distress Head: normocephalic, Atraumatic Eyes: normal inspection, EOMI Neck: supple, Trachea midline Respiratory/Chest: Normal breath sounds, CTA, No accessory muscle use Cardiovascular: S1, S2, No murmur Abdomen/GI:Soft, mild epigastric tender, Bowel sounds present Extremities/Musculoskeletal:normal inspection, no edema Neurologic/Psych:AAOX3, grossly no focal neurological deficits Skin: normal color, warm Results & Data Results & Data ([facility]) Vital Signs (Past 12 Hours) Vital Signs Temp Pulse Pulse Pulse Resp BP BP 08/09/22 11:59 37.2 C 83 16 126/74 08/09/22 07:54 37.5 C 79 18 110/61 08/09/22 07:10 79 08/09/22 04:21 78 08/09/22 04:12 08/09/22 04:12 36.8 C 79 17 135/74 08/09/22 03:43 37.5 C 08/09/22 03:19 75 18 113/70 08/09/22 02:44 71 121/67 Pulse Ox O2 Del Method 08/09/22 11:59 95 Room Air 08/09/22 07:54 94 Room Air 08/09/22 07:10 08/09/22 04:21 08/09/22 04:12 Room Air 08/09/22 04:12 92 Room Air 08/09/22 03:43 08/09/22 03:19 95 08/09/22 02:44 94 Room Air Laboratory Results Short CBC 08/08/22 08/09/22 Range/Units 22:12 06:23 WBC 9.99 10.39 (4.8-10.8) K/ul Hgb 15.5 14.3 (14.0-18.0) g/dl Hct 44.5 40.7 (40.1-51.0) % Plt Count 234 208 (130-400) K/uL BMP 08/08/22 08/09/22 22:12 06:23 Sodium 138 139 Potassium 3.5 3.4 L Chloride 104 108 H Carbon Dioxide 26 24 BUN 18 14 Creatinine 1.16 1.02 Glucose 119 H 106 H Calcium 9.1 8.1 L Liver Function 08/08/22 Range/Units 22:12 Total Bilirubin 0.9 (0.2-1.0) mg/dl AST 32 (13-39) U/L ALT 18 (7-52) U/L Alkaline Phosphatase 58 (34-104) U/L Albumin 4.5 (3.4-5.0) gm/dl Urine 08/09/22 Range/Units 03:00 Urine Color Yellow Urine Appearance Clear (Clear) Urine pH 6.0 (4.5-7.5) Ur Specific [place] 1.042 H (1.000-1.030) Urine Protein Negative (Negative) Urine Glucose (UA) Negative (Negative)
[2022-08-09] MEDS ORDERED: FAMOTIDINE 20 MG TAB PO SCH (21:00)
[2022-08-09] MEDS: PANTOprazole 40 MG TAB PO SCH (21:03)
[2022-08-10] MEDS: ACETAMINOPHEN 325 MG TAB PO PRN (06:22)
[2022-08-10] MEDS: AMOXICILLIN/CLAVULANATE 875 MG TAB PO SCH (08:05)
[2022-08-10] MEDS: OSELTAMIVIR PHOSPHATE 75 MG CAP PO SCH (08:05)
[2022-08-10] MEDS: ATORVASTATIN 10 MG TAB PO SCH (08:05)
[2022-08-10] MEDS: PANTOprazole 40 MG TAB PO SCH (08:06)
[2022-08-10] MEDS: ENOXAPARIN INJ 40 MG/0.4 ML SYR SQ SCH (08:06)
[2022-08-10 08:38] LABS: Hemoglobin 14.5 g/dl (14.0-18.0); Mean Corpuscular Hemoglobin 30.2 pg (25.0-34.0); Mean Corpuscular Hgb Conc 34.5 g/dL (32.0-36.0); Mean Corpuscular Volume 87.5 fL (80.0-100.0); Mean Platelet Volume 9.4 fL (9.4-12.4); Platelet Count 189 K/uL (130-400); RDW Coefficient of Variation 12.2 % (11.5-14.5); RDW Standard Deviation 39.3 fL (36.4-46.3); White Blood Count 9.05 K/ul (4.8-10.8)
[2022-08-10 08:57] LABS: BUN Creatinine Ratio 15.6 (10-20); Calcium 8.5 mg/dl (8.5-10.1); Creatinine Clr Calc Pharmacy 75.9 ml/min; Est GFR (African American) 93.1 ml/min; Est GFR (Non-African American) 80.3 ml/min; Potassium 3.5 mmol/L (3.5-5.1)
--- NOTE | 2022-08-10 11:46 | Hospitalist Progress Note ---
Date of Service August 10, 2022 Assessment & Plan (1) Sepsis: Plan: Influenza A H1 Possible aspiration pneumonitis --CT:minimal patchy groundglass consolidation in the right middle lobe, typical for an infectious/inflammatory pneumonitis. --CXR:Emphysematous change with no acute cardiopulmonary abnormality. -- Procalcitonin less than 0.05 --Blood cultures pending -- Continue Augmentin Continue Tamiflu as well Saturating well on room air Isolation precautions Plan to discharge home today Esophageal Dysmotility: Chronic Epigastric Pain -Barium Swallow:Mild esophageal dysmotility. No gastroesophageal reflux demonstrated during the examination. --CT ABD: No acute infectious or inflammatory findings are identified in the abdomen or pelvis. Colonic diverticulosis without CT evidence of acute diverticulitis. -Aspiration Precautions -Appreciate Speech Therapy help -Needs follow up with GI upon discharge H/O uncontrolled GERD H/O Ruelas's esophagus Increased PPI to twice daily Scheduled for EGD in August as per patient Hypokalemia Replace electrolytes as needed Monitor Hyperlipidemia on statin Hyperglycemia HbA1C: 5.4 DVT Px: Lovenox SQ Code Status Full code Disposition Home Admission and Anticipated Discharge Date Admission Date: August 09, 2022 Subjective Patient is seen and examined at bedside Feels better today Cough improved Denies any chest pain, dyspnea, dizziness, nausea, abd pain Offers no other complaints Plan to discharge home today Review of Systems Review of Systems: All systems reviewed & are unremarkable except as noted in Subjective Physical Exam Physical Exam: Physical Exam: Vitals signs as noted above General Appearance:Moderately built and nourished, no apparent distress Head: normocephalic, Atraumatic Eyes: normal inspection, EOMI Neck: supple, Trachea midline Respiratory/Chest: Normal breath sounds, CTA, No accessory muscle use Cardiovascular: S1, S2, No murmur Abdomen/GI:Soft, non tender, Bowel sounds present Extremities/Musculoskeletal:normal inspection, no edema Neurologic/Psych:AAOX3, grossly no focal neurological deficits Skin: normal color, warm Results & Data Results & Data ([facility]) Vital Signs (Past 12 Hours) Vital Signs Temp Pulse Pulse Resp BP Pulse Ox O2 Del Method 08/10/22 11:03 71 08/10/22 07:51 37.1 C 78 20 134/67 96 Room Air 08/10/22 04:00 37.0 C 77 18 124/71 93 Room Air 08/10/22 01:29 37.1 C 75 18 119/70 93 Room Air Laboratory Results Short CBC 08/10/22 Range/Units 08:13 WBC 9.05 (4.8-10.8) K/ul Hgb 14.5 (14.0-18.0) g/dl Hct 42.0 (40.1-51.0) % Plt Count 189 (130-400) K/uL BMP 08/10/22 08:13 Sodium 137 Potassium 3.5 Chloride 105 Carbon Dioxide 26 BUN 15 Creatinine 0.96 Glucose 106 H Calcium 8.5
--- NOTE | 2022-08-10 11:58 | Discharge Summary ---
Date of Service August 10, 2022 Admission HPI Per Admitting Provider History obtained from patient and records. Medical history significant for GERD, Ruelas's esophagus as per records, hyperlipidemia. Last confinement 2018 for chest pain attributed to GERD. 4 months ago, patient noted trouble swallowing and needing to cough to clear his throat. Intermittent symptoms of achy epigastric discomfort going to the chest. No fever, no chills, no unusual weight loss. Patient seen at PCPs office. Symptoms attributed to uncontrolled GERD. Benadryl added to patient's PPI. Famotidine added to patient's regimen if no better after 2 weeks as per note. Patient cannot recall instructions about famotidine. Outpatient stress test recommended for chest pain complaints. No inducible ischemia on last month's study. Persistent coughing and gagging over the last few months. Patient seen on follow-up PCP visit last week. Flonase trial initiated for possible reactive airway disease. Famotidine at night to be prescribed again although patient does not recall instructions. Persistent epigastric discomfort going to the chest with some shortness of breath. Patient got cold last night and noted junky cough symptoms. No nausea, no vomiting. Patient consulted ER. Ceftriaxone administered at the ER. 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 Admission Exam Per Admitting Provider Physical Exam Physical Exam: GENERAL: Comfortable, pleasant, no respiratory distress SKIN: normal color, warm HEENT: Partial alopecia, pink palpebral conjunctivae, no ptosis, dry buccal mucosa NECK : Supple, no tenderness CHEST : Decreased breath sounds, no tenderness HEART : Tachycardic, no obvious murmurs ABDOMEN: Some distention, epigastric tenderness EXTREMITIES : No LE swelling/tenderness, no other conspicuous deformities noted NEUROLOGIC : Coherent, no facial asymmetry, no other gross focality Principal Diagnosis Influenza Ainfection Esophageal Dysmotility Aspiration pneumonitis Discharge Data Allergies Allergy/AdvReac Type Severity Reaction Status Date / Time No Known Allergies Allergy Verified 08/08/22 22:28 Consultations 08/09/22 01:10 ED Decision to Admit Stat Procedures Performed Laboratory Results WBC 9.05 K/ul (4.8-10.8) 08/10/22 08:13 RBC 4.80 M/uL (4.63-6.08) 08/10/22 08:13 Hgb 14.5 g/dl (14.0-18.0) 08/10/22 08:13 POC Hgb 15.3 g/dl (14.0-18.0) 08/08/22 22:29 Hct 42.0 % (40.1-51.0) 08/10/22 08:13 POC Hct 45 % (42-52) 08/08/22 22:29 MCV 87.5 fL (80.0-100.0) 08/10/22 08:13 MCH 30.2 pg (25.0-34.0) 08/10/22 08:13 MCHC 34.5 g/dL (32.0-36.0) 08/10/22 08:13 RDW Std Deviation 39.3 fL (36.4-46.3) 08/10/22 08:13 RDW Coeff of Sbaina 12.2 % (11.5-14.5) 08/10/22 08:13 Plt Count 189 K/uL (130-400) 08/10/22 08:13 MPV 9.4 fL (9.4-12.4) 08/10/22 08:13 Immature Gran % (Auto) 0.5 % 08/09/22 06:23 Neut % (Auto) 72.4 % 08/09/22 06:23 Lymph % (Auto) 11.9 % 08/09/22 06:23 [place] % (Auto) 14.6 % 08/09/22 06:23 Eos % (Auto) 0.4 % 08/09/22 06:23 Baso % (Auto) 0.2 % 08/09/22 06:23 Neut # (Auto) 7.52 K/uL (1.4-6.5) H 08/09/22 06:23 Lymph # (Auto) 1.24 K/uL (1.2-3.4) 08/09/22 06:23 [place] # (Auto) 1.52 K/uL (0.24-0.82) H 08/09/22 06:23 Eos # (Auto) 0.04 K/uL (0-0.50) 08/09/22 06:23 Baso # (Auto) 0.02 K/uL (0-0.2) 08/09/22 06:23 Immature Gran # (Auto) 0.05 K/uL (0.00-0.02) H 08/09/22 06:23 POC Sodium 140 mmol/L (135-144) 08/08/22 22:29 Sodium 137 mmol/L (136-145) 08/10/22 08:13 POC Potassium 3.5 mmol/L (3.3-5.0) 08/08/22 22:29 Potassium 3.5 mmol/L (3.5-5.1) 08/10/22 08:13 POC Chloride 104 mmol/L (101-112) 08/08/22 22:29 Chloride 105 mmol/L (98-107) 08/10/22 08:13 Carbon Dioxide 26 mmol/L (21-32) 08/10/22 08:13 POC Total CO2 24 mmol/L (24-31) 08/08/22 22:29 Anion Gap 6 (3-11) 08/10/22 08:13 POC Anion Gap 16.0 mmol/L (16-25) 08/08/22 22:29 POC BUN 18 mg/dl (7-18) 08/08/22 22:29 BUN 15 mg/dl (6-23) 08/10/22 08:13 Creatinine 0.96 mg/dl (0.6-1.4) 08/10/22 08:13 POC Creatinine 1.2 mg/dl (0.6-1.3) 08/08/22 22:29 Est Cr Clr Drug Dosing 75.9 ml/min 08/10/22 08:13 Est GFR ( Amer) 93.1 ml/min 08/10/22 08:13 Est GFR (Non-Af Amer) 80.3 ml/min 08/10/22 08:13 BUN/Creatinine Ratio 15.6 (10-20) 08/10/22 08:13 Glucose 106 mg/dl (70-99(Fasting)) H 08/10/22 08:13 POC Glucose (other) 122 mg/dl (70-99) H 08/08/22 22:29 Estimat Average Glucose 108 mg/dl 08/08/22 22:12 Hemoglobin A1c 5.4 % (4.5-5.6) 08/08/22 22:12 Lactate 0.6 mmol/L (0.4-2.0) 08/09/22 01:37 Calcium 8.5 mg/dl (8.5-10.1) 08/10/22 08:13 POC Ioniz Calcium Arben 1.12 mmol/l (1.12-1.32) 08/08/22 22:29 Magnesium 2.0 mg/dl (1.7-2.4) 08/10/22 08:13 Total Bilirubin 0.9 mg/dl (0.2-1.0) 08/08/22 22:12 AST 32 U/L (13-39) 08/08/22 22:12 ALT 18 U/L (7-52) 08/08/22 22:12 Alkaline Phosphatase 58 U/L (34-104) 08/08/22 22:12 Troponin I High Sens 7.0 pg/ml (0-20) 08/09/22 01:39 Total Protein 7.4 gm/dl (6.0-8.3) 08/08/22 22:12 Albumin 4.5 gm/dl (3.4-5.0) 08/08/22 22:12 Globulin 2.9 gm/dl (2.5-4.0) 08/08/22 22:12 Albumin/Globulin Ratio 1.6 (0.9-2) 08/08/22 22:12 Lipase 14 U/L (11-82) 08/08/22 22:12 Procalcitonin < 0.05 ng/ml (0-0.5) 08/08/22 22:12 Urine Color Yellow 08/09/22 03:00 Urine Appearance Clear (Clear) 08/09/22 03:00 Urine pH 6.0 (4.5-7.5) 08/09/22 03:00 Ur Specific [place] 1.042 (1.000-1.030) H 08/09/22 03:00 Urine Protein Negative (Negative) 08/09/22 03:00 Urine Glucose (UA) Negative (Negative) 08/09/22 03:00 Urine Ketones Trace (Negative) H 08/09/22 03:00 Urine Blood Negative (Negative) 08/09/22 03:00 Urine Nitrite Negative (Negative) 08/09/22 03:00 Urine Bilirubin Negative (Negative) 08/09/22 03:00 Urine Urobilinogen Negative (Negative) 08/09/22 03:00 Ur Leukocyte Esterase Negative (Negative) 08/09/22 03:00 Nasal Influ A H1 2009 PCR DETECTED (NotDetected) A* 08/09/22 09:10 Adenovirus (PCR) Not Detected (NotDetected) 08/09/22 09:10 B. pertussis DNA (PCR) Not Detected (NotDetected) 08/09/22 09:10 B.parapertussis DNA PCR Not Detected (NotDetected) 08/09/22 09:10 C. pneumoniae DNA (PCR) Not Detected (NotDetected) 08/09/22 09:10 Coronavirus OC43 (PCR) Not Detected (NotDetected) 08/09/22 09:10 Coronavirus HKU1 (PCR) Not Detected (NotDetected) 08/09/22 09:10 Coronavirus 229E (PCR) Not Detected (NotDetected) 08/09/22 09:10 SARS-CoV-2 (PCR) Not Detected (NotDetected) 08/09/22 09:10 Coronavirus NL63 (PCR) Not Detected (NotDetected) 08/09/22 09:10 Human Metapneumovir PCR Not Detected (NotDetected) 08/09/22 09:10 Influenza Type B (PCR) Not Detected (NotDetected) 08/09/22 09:10 M. pneumoniae (PCR) Not Detected (NotDetected) 08/09/22 09:10 Parainfluenza 1 (PCR) Not Detected (NotDetected) 08/09/22 09:10 Parainfluenza 2 (PCR) Not Detected (NotDetected) 08/09/22 09:10 Parainfluenza 3 (PCR) Not Detected (NotDetected) 08/09/22 09:10 Parainfluenza 4 (PCR) Not Detected (NotDetected) 08/09/22 09:10 RSV (PCR) Not Detected (NotDetected) 08/09/22 09:10 Entero/Rhino (PCR) Not Detected (NotDetected) 08/09/22 09:10 SARS-CoV-2, RNA, NAAT NEGATIVE (NEGATIVE) 08/08/22 22:12 Impressions Abdomen/Pelvis CT 08/08/22 21:54 CT SCAN OF THE ABDOMEN AND PELVIS WITH IV CONTRAST CLINICAL HISTORY: Generalized abdominal pain. Fever. COMPARISON STUDY: Abdominal CT dated 12/26/2016. TECHNIQUE: Following the IV administration of 81 cc of Optiray 350, CT scan of the abdomen and pelvis is performed from the lung bases to the proximal femora. Images are reviewed in the axial, sagittal, and coronal planes. IV contrast was administered without complication. A dose lowering technique was utilized adhering to the principles of ALARA. CT DOSE: 406.57 mGy.cm FINDINGS: Lung bases: The heart is normal in size and without pericardial effusion. There is minimal patchy groundglass consolidation in the right middle lobe. The lung bases are otherwise clear. There is a small hiatal hernia. Liver: The contrast-enhanced liver is normal in size, contour, and attenuation. There is no intrahepatic biliary ductal dilatation. The hepatic veins and portal veins are patent. Gallbladder: Unremarkable. Spleen: Normal in size and attenuation. Pancreas: Unremarkable. Adrenal glands: Unremarkable. Kidneys: The contrast enhanced kidneys are normal in size and without hydronephrosis. The kidneys enhance symmetrically. Abdominal vasculature: The abdominal aorta is normal in course and caliber. Bowel: There is mild colonic diverticulosis without CT evidence of acute diverticulitis. Fecal retention is noted throughout the colon. The appendix is not identified and reported surgically absent. Peritoneum: There is no intraperitoneal free air or abdominal ascites. There is a fat-containing umbilical hernia. Lymphadenopathy: None. Pelvic viscera: The prostate gland is enlarged and heterogeneous noticing median lobe hypertrophy. The bladder wall is mildly thickened and trabeculated indicating chronic outlet obstruction. Skeletal structures: The skeletal structures are osteopenic. There is moderate lumbosacral spondylosis. No lytic or blastic lesions are seen. IMPRESSION: 1. There is minimal patchy groundglass consolidation in the right middle lobe, typical for an infectious/inflammatory pneumonitis. 2. No acute infectious or inflammatory findings are identified in the abdomen or pelvis. 3. Colonic diverticulosis without CT evidence of acute diverticulitis. 4. Additional findings as above. ACT 112: Negative or not required by law. Electronically signed by: Nicolás Damico M.D. 08/09/2022 7:25 AM Chest X-Ray 08/08/22 23:19 SINGLE VIEW CHEST CLINICAL HISTORY: Cough and fever. FINDINGS: An AP, portable, upright chest radiograph is compared to study dated 04/23/2021 and correlated with chest CT dated 01/01/2019. The cardiomediastinal silhouette is top normal for projection noting atherosclerotic calcification of the thoracic aorta. Emphysema and chronic interstitial thickening is similar to previous. An accessory azygos fissure is incidentally noted. There is bibasilar scarring/atelectasis. No airspace consolidation or large pleural effusion is identified. No pneumothorax is seen. The skeletal structures are osteopenic. The bony thorax is grossly intact. IMPRESSION: Emphysematous change with no acute cardiopulmonary abnormality. ACT 112: Negative or not required by law. Electronically signed by: Nicolás Damico M.D. 08/09/2022 7:07 AM Barium Swallow X-Ray 08/09/22 11:00 FL barium swallow CLINICAL HISTORY: h/o uncontrolled reflux COMPARISON STUDY: None. FLUOROSCOPY TIME: 1.5 minutes. 16 fluoroscopic spot images and a cine loop were submitted. FINDINGS: The esophagus is normal and course and caliber. There is mild esophageal dysmotility. No hiatus hernia. No gastroesophageal reflux demonstrate during the examination. The contours of the hypopharynx are within normal limits. The barium tablet passed without difficulty. IMPRESSION: Mild esophageal dysmotility. No gastroesophageal reflux demonstrated during the examination. ACT 112: Negative or not required by law. Electronically signed by: Juan Peck M.D. 08/09/2022 11:38 AM Ordered Studies 08/08/22 21:54 CT abd pelvis IV con only Urgent 08/09/22 11:00 FL barium swallow Routine Hospital Course (1) Sepsis: Influenza A H1 Possible aspiration pneumonitis --CT:minimal patchy groundglass consolidation in the right middle lobe, typical for an infectious/inflammatory pneumonitis. --CXR:Emphysematous change with no acute cardiopulmonary abnormality. -- Procalcitonin less than 0.05 --Blood cultures pending -- Continue Augmentin Continue Tamiflu as well Saturating well on room air Isolation precautions Plan to discharge home today Esophageal Dysmotility: Chronic Epigastric Pain -Barium Swallow:Mild esophageal dysmotility. No gastroesophageal reflux demonstrated during the examination. --CT ABD: No acute infectious or inflammatory findings are identified in the abdomen or pelvis. Colonic diverticulosis without CT evidence of acute diverticulitis. -Aspiration Precautions -Appreciate Speech Therapy help -Needs follow up with GI upon discharge H/O uncontrolled GERD H/O Ruelas's esophagus Increased PPI to twice daily Scheduled for EGD in August as per patient Hypokalemia Replace electrolytes as needed Monitor Hyperlipidemia on statin Hyperglycemia HbA1C: 5.4 DVT Px: Lovenox SQ Code Status Full code Disposition Home Total Time Total Time Spent Total Time Spent (In Minutes): 48 minutes Discharge Plan Discharge Items Patient Disposition: Home - Self-Care Reason For Visit: SEPSIS Discharge Diagnosis: Influenza Ainfection Esophageal Dysmotility Aspiration pneumonitis Activity: Per Instructions section Exercise/Sports: Wait until after follow-up appointment Non-emergency contact: Primary Care Provider and [facility] Call non-emergency contact if: you have any medication questions, your symptoms worsen, your pain is concerning for you and you have a fever Follow-up/Referrals: Paola Mccoy PA-C [Primary Care Provider] - (Date & Time 08/17/2022 8:00 AM Provider Shyanne Kirkland PA-C Department [facility] ) Diet: Heart Healthy Addtl Attending Provider Instructions: Follow-up with your primary care physician Paola Mccoy PA-C on 08/17/2022 8:00 AM Follow up with your [facility] for further evaluation of GERD, esophageal dysmotility as outpatient. --- Complete antibiotic course Augmentin, Tamiflu as prescribed. -- Your omeprazole is increased to twice a day for better control of your heartburn issues. Further instructions as per your primary care physician, vice president of advertising. Seek immediate medical attention if your symptoms reoccur or worsen Please take all medications as instructed on discharge list below. Please call if you have any questions or problems. You can reach a [facility] hospitalist on duty at [facility] 24 hours a day by calling [phone] Pending Studies at Discharge: Yes Studies:: Blood Culture Stand-Alone Forms: My [facility], Smoking Cessation Medications and DC Order Prescriptions: New amoxicillin-pot clavulanate 875-125 mg Tablet 1 tab PO BIDM Qty: 10 0RF oseltamivir [Tamiflu] 75 mg Capsule 75 mg PO BID Qty: 7 0RF benzonatate 100 mg Capsule 100 mg PO TID PRN (Reason: cough) Qty: 30 0RF Continued atorvastatin 10 mg Tablet 10 mg PO QAM sildenafil 100 mg tablet 100 mg PO DIRECTED PRN (Reason: Sexual Activity) Rx Instructions: 1/2-1 tab 1-4 hours prior to intercourse fluticasone propionate 50 mcg/actuation spray,suspension 2 spray INTRANASAL DAILY PRN (Reason: Congestion) Changed omeprazole 40 mg capsule,delayed release(DR/EC) 40 mg PO BID Qty: 60 0RF Discharge Orders: Discharge Order (Routine); Ordered 08/10/22 Ordered By: Timoteo Estrada Admission Data Admit Date/Time: 08/09/22 01:36 Attending Provider: Timoteo Estrada Admit Provider: Onesimo Gutierrez Primary Care Provider: Paola Mccoy Other Providers: Onesimo Gutierrez
== END 2022-08-10 14:04 | disposition home or self-care (01) | DRG 871 ==
LOC: ED 21:21 → 2N 08-09 01:36